=== PATIENT | female | born 1965 | race Caucasian/White ===

== ENCOUNTER 2016-05-02 07:07 | Emergency (ER) | payer OTHER ==
[~2016-05-02] VITALS: Ht 167.6 cm; Wt 63.5 kg
[~2016-05-02 07:07] MED LIST: ASPIRIN CHILDRE81 MG PO; BACTRIM 400 MG-1 TAB PO; CELLCEPT 250MG250 MG PO; CIPRO 500MG TA500 MG PO; CODEINE SULFATE PO; DULOXETINE30 MG PO; ECOTRIN81 MG PO; INSULIN PUMP; LOMOTIL 0.025 M1 TAB PO; Lomotil PO; MASON NATURAL2000 IU PO; METOCLOPRAMIDE10 MG PO; PHENERGAN25 M1 PO; PRAVASTATIN SOD40 MG PO; PREDNISONE5 MG PO; PRILOSEC OTC20 MG PO; TACROLIMUS1 MG PO; ZOFRAN4 M1 PO
--- NOTE | 2016-05-02 07:23 | ED GI/GU/ABDOMINAL COMPLAINT ---
See Addendum History of Present Illness General Chief Complaint: Nausea, Vomiting, Diarrhea Stated Complaint: NAUSEA,VOMITING,HX DIABETES Source: patient Exam Limitations: no limitations Allergies Coded Allergies: NO KNOWN ALLERGIES (03/03/14) Reconcile Medications Aspirin (Ecotrin) 81 MG ECT 1 TAB PO DAILY HEART HEALTH (Reported) CHOLECALCIFEROL (VITAMIN D3) (Vitamin D) 2,000 UNIT CAPSULE 1 CAP PO DAILY SUPPLEMENT (Reported) Codeine Sulfate 60 MG TABLET 2 TAB PO AT BEDTIME NEUROPATHY (Reported) DIPHENOXYLATE HCL/ATROPINE (Lomotil 2.5-0.025 MG Tablet) 1 TAB TAB 1 TAB PO TID PRN DIARRHEA (Reported) DULOXETINE HCL (Duloxetine) 30 MG CAPSULE.DR 2 CAP PO AT BEDTIME NEUROPATHY ( Reported) [INSULIN PUMP] (Reported) DR SANDOVAL TO MANAGE METOCLOPRAMIDE HCL (Metoclopramide HCl) 10 MG TABLET 1 TAB PO 4 TIMES/DAY GASTRA PERISIS (Reported) Mycophenolate Mofetil (CellCept) 250 MG CAPSULE 3 CAP PO BID KIDNEY TRANSPLANT (Reported) Pravastatin Sodium 40 MG TABLET 1 TAB PO DAILY CHOLESTEROL (Reported) Prednisone 5 MG TAB 1 TAB PO DAILY KIDNEY TRANSPLANT (Reported) Promethazine Hydrochloride (Phenergan) 25 MG TAB 1 TAB PO TID PRN NAUSEA Tacrolimus 1 MG CAPSULE 1.5 MG PO BID KIDNEY TRANSPLANT (Reported) Triage Note: C/O NAUSEA X 5 DAYS, VOMITING SINCE YESTERDAY. DENIES ABDOMINAL PAIN OR DIARRHEA. PMH: IDDM. REPORTS ACCUCHECK WAS 158 @ 0645. Triage Nurses Notes Reviewed? yes ? N Is pt currently ? No Onset: Abrupt Duration: day(s): (5) Timing: recent history Quality/Severity: moderate No Modifying Factors: none Associated Symptoms: nausea/vomiting HPI: 50 year old female presents with sudden onset nausea and vomiting since sunday. Patient reports persistent symptoms. She reports only being able to hold down soup. She is on reglan q4 hrs at baseline for gastroparesis. Positive chills and headache. No abdominal pain. Emesis is bilious but non bloody. She denies any recent sick contacts of travel. (GARDENIA VILLA,DAWIT) Vital Signs & Intake/Output Vital Signs & Intake/Output ED Intake and Output 05/03 0000 05/02 1200 Intake Total 2000 Output Total Balance 2000 Intake, IV 2000 Patient 140 lb Weight Past History Travel History Traveled to [place] past 21 day No Medical History Any Pertinent Medical History? see below for history Neurological: NEUROPATHY EENT: NONE Cardiovascular: NONE Respiratory: bronchitis, COPD, O2 PRN Gastrointestinal: GERD, GASTROPARESIS Hepatic: NONE Renal: KIDNEY TRANSPLANT Musculoskeletal: NONE Psychiatric: NONE Endocrine: diabetes Blood Disorders: NONE Cancer(s): NONE History of MRSA: No History of VRE: No History of CDIFF: No Surgical History Surgical History: renal transplant Psychosocial History Who do you live with Spouse Services at Home None What is your primary language Greek Tobacco Use: Current Not Daily ETOH Use: denies use Family History Family History, If Any: FATHER Relation not specified for: FH: HTN (hypertension) Hx Contributory? No (DAWIT VARNER MD) Review of Systems Review of Systems Constitutional: Reports: chills. Denies: fever. EENTM: Reports: no symptoms. Respiratory: Denies: cough, short of breath, sputum production. Cardiovascular: Denies: chest pain, palpitations. GI: Reports: nausea, vomiting. Denies: abdominal pain. Genitourinary: Reports: no symptoms. Musculoskeletal: Reports: no symptoms. Skin: Reports: no symptoms. Neurological/Psychological: Reports: no symptoms. Hematologic/Endocrine: Denies: bruising, bleeding, polyuria, polydipsia. Immunologic/Allergic: Reports: no symptoms. All Other Systems: Reviewed and Negative (DAWIT VARNER MD) Physical Exam Physical Exam General Appearance: alert, awake, anxious, mild distress, thin Head: atraumatic, normal appearance Eyes: Bilateral: normal appearance, PERRL, EOMI. Ears, Nose, Throat, Mouth: hearing grossly normal, moist mucous membrane Neck: normal inspection, supple, full range of motion Respiratory: normal breath sounds, chest non-tender, no respiratory distress Cardiovascular: regular rate/rhythm Peripheral Pulses: 2+ radial (R), 2+ radial (L) Gastrointestinal: normal bowel sounds, soft, non-tender Back: normal inspection, normal range of motion Extremities: normal range of motion Neurologic/Psych: no motor/sensory deficits, awake, alert, oriented x 3 Skin: intact, normal color, warm/dry Core Measures ACS in differential dx? No Severe Sepsis Present: No Septic Shock Present: No (DAWIT VARNER MD) Progress Differential Diagnosis: ischemic bowel, pancreatitis, PUD/GERD, perforated viscous, SBO, DKA, GASTROPARESIS, CORBIN, DEHYDRATION, ELECTROLYTE DISTURBANCE Initial ED EKG: none (DAWIT VARNER MD) Plan of Care: Orders Procedure Date/time Status MIXED VENOUS BLOOD GAS (GEN) 05/02 722 Complete URINALYSIS 05/02 722 Active COMPREHENSIVE METABOLIC PANEL 05/02 722 Complete CBC WITHOUT DIFFERENTIAL 05/02 722 Complete ACETONE 05/02 722 Complete Laboratory Tests 05/02/16 0830: Bicarbonate Actual 29 H, Mixed VBG pH 7.35, Mixed VBG pCO2 55 H, Mixed VBG O2 Saturation 22 L, P-50 (Temp Corrected) YES, Carboxyhemoglobin 2.3, O2 Concentration % RA, Temperature 97.2, O2 Delivery Method RA, Phlebotomy Draw Site RAC 05/02/16 0741: Anion Gap 6, Estimated GFR 58 L, BUN/Creatinine Ratio 14.0, Glucose 132 H, Calcium 9.9, Total Bilirubin 0.4, AST 21, ALT 22, Alkaline Phosphatase 61, Total Protein 7.1, Albumin 4.0, Globulin 3.1, Albumin/Globulin Ratio 1.3, CBC w Diff NO MAN DIFF REQ, RBC 4.57, MCV 69.3 L, MCH 21.0 L, RDW 20.4 H, MPV 8.7, Gran % 53.2, Lymphocytes % 33.6, Monocytes % 10.3 H, Eosinophils % 2.8, Basophils % 0.1, Absolute Granulocytes 4.1, Absolute Lymphocytes 2.6, Absolute Monocytes 0.8 H, Absolute Eosinophils 0.2, Absolute Basophils 0, PUBS MCHC 30.4 L, Acetone Level NEGATIVE labs, acetone, mixed venous ordered. NS, iv reglan ordered. 9:20 will attempt clear liquid diet. workup negative for DKA. 05/02/2016 9:47:10 AM Patient feeling much better at this time. She is tolerating clear liquids. We will discharge her home. Patient has Reglan that she takes before meals which she can continue for her gastroparesis. (DAWIT VARNER MD) Comments: THIS PATIENT WAS NOT SEEN BY SHERYL ONEILL (JENAE BUNDYON) Departure Departure Time of Disposition: 946 Disposition: HOME OR SELF CARE Condition: Stable Clinical Impression Primary Impression: Gastroparesis Secondary Impressions: Anemia Referrals: JANELLE VILLA,HECTOR Red (PCP/Family) Additional Instructions: Take your Reglan as prescribed and follow up with her doctors in the office. Return as needed. Departure Forms: Customer Survey General Discharge Information (GARDENIA VILLA,DAWIT)
[2016-05-02 07:57] LABS: ABSOLUTE BASOPHIL COUNT 0 /CUMM (0.0-0.2); ABSOLUTE EOSINOPHIL COUNT 0.2 /CUMM (0.0-0.7); ABSOLUTE GRANULOCYTE CT 4.1 /CUMM (1.4-6.5); ABSOLUTE LYMPH COUNT 2.6 /CUMM (1.2-3.4); ABSOLUTE MONOCYTE COUNT 0.8 /CUMM (0.10-0.60); BASOPHIL % 0.1 % (0.0-2.0); EOSINOPHIL % 2.8 % (0-5); HEMATOCRIT 31.7 % (37-47); MEAN CORPUSCULAR HGB CONC 30.4 G/DL (33.0-37.0); MEAN CORPUSCULAR VOLUME 69.3 FL (81.0-99.0); MEAN PLATELET VOLUME 8.7 FL (7.4-10.4); RBC DISTRIBUTION WIDTH 20.4 % (11.5-14.5); RED BLOOD CELL CT 4.57 /CUMM (4.20-5.40); WHITE BLOOD CELL COUNT 7.7 /CUMM (4.8-10.8)
[2016-05-02 08:11] LABS: GRANULOCYTE % 53.2 % (42.2-75.2); PLATELET COUNT 369 /CUMM (130-400)
[2016-05-02 08:48] VITALS: BP 170/99
== END 2016-05-02 10:26 ==
LOC: ERH 07:07
PROVIDERS: Emergency Medicine
DX: K31.84 Gastroparesis (principal); D64.9 Anemia, unspecified
CPT/HCPCS: 96361; 96374; 96375; 96376; J2765

== ENCOUNTER 2016-05-21 16:20 | Emergency (ER) | payer OTHER ==
[~2016-05-21] VITALS: Ht 170.2 cm; Wt 63.5 kg
[2016-05-21] MEDS ORDERED: VITAMIN D2000 UNIT PO (17:45)
[2016-05-21] MEDS ORDERED: ASPIRIN81 M4 PO (17:45)
[2016-05-21] MEDS ORDERED: CODEINE SULFATE PO (17:46)
[2016-05-21] MEDS ORDERED: NOVOLOG100 UNIT/1 (17:46)
[2016-05-21] MEDS ORDERED: DULOXETINE HCL60 MG PO (17:46)
[2016-05-21] MEDS ORDERED: PRAVACHOL40 M1 PO (17:47)
[2016-05-21] MEDS ORDERED: REGLAN10 M1 PO ×2 (17:47→19:44)
[2016-05-21] MEDS ORDERED: CELLCEPT250 MG PO (17:47)
[2016-05-21] MEDS ORDERED: PROGRAF1 M1 PO (17:48)
[2016-05-21] MEDS ORDERED: PREDNISONE5 M1 PO (17:48)
--- NOTE | 2016-05-21 17:57 | ED GI/GU/ABDOMINAL COMPLAINT ---
History of Present Illness General Chief Complaint: Nausea, Vomiting, Diarrhea Stated Complaint: NAUSEA, VOMITING X 3 DAYS Source: patient, old records Exam Limitations: no limitations Vital Signs & Intake/Output Vital Signs & Intake/Output Vital Signs Date Time Temp Pulse Resp B/P Pulse O2 O2 Flow FiO2 Ox Delivery Rate 05/21 1854 97.3 99 18 197/94 98 Room Air 05/21 1647 97.9 102 20 228/116 92 Room Air Allergies Coded Allergies: No Known Allergies (05/21/16) Reconcile Medications Aspirin (Aspirin*) 81 MG TAB.CHEW 1 TAB PO DAILY PROPHYLAXIS (Reported) Cholecalciferol (Vitamin D3) (Vitamin D) 2,000 UNIT CAPSULE 1 CAP PO DAILY SUPPLEMENT (Reported) Codeine Sulfate 60 MG TABLET 60 MG PO QHS NEUROPATHY (Reported) Dicyclomine Hydrochloride (Bentyl) 10 MG CAPSULE 1 CAP PO TID PRN GASTRITIS Duloxetine HCl 60 MG CAPSULE.DR 1 CAP PO DAILY NEUROPATHY (Reported) Insulin Aspart (Novolog) (Unknown Strength) CARTRIDGE (Unknown Dose) DAILY INSULIN PUMP (Reported) [INSULIN PUMP] (Reported) DR SANDOVAL TO MANAGE Metoclopramide HCl (Reglan) 10 MG TABLET 1 TAB PO 4 TIMES/DAY GASTROPARESIS ( Reported) 30 minutes before meals and bedtime Metoclopramide HCl (Reglan) 10 MG TABLET 1 TAB PO 4 TIMES/DAY PRN NAUSEA 30 minutes before meals and bedtime Mycophenolate Mofetil (Cellcept) 250 MG CAPSULE 3 CAP PO BID KIDNEY TRANSPLANT (Reported) Ondansetron HCl (Zofran) 4 MG TABLET 1 TAB PO Q6-8P PRN NAUSEA Pravastatin Sodium (Pravachol) 40 MG TABLET 1 TAB PO DAILY HPL (Reported) Prednisone 5 MG TABLET 1 TAB PO DAILY RENAL TRANSPLANT (Reported) Tacrolimus (Prograf) 1 MG CAPSULE 1.5 MG PO BID TRANSPLANT (Reported) Triage Note: TRIAGE: PT TO ER WITH C/C N/V X 3 DAYS. UNABLE TO TOLERATE PO LIQUIDS/SOLIDS. STATES HX OF SAME AND WAS SEEN HERE 3 WEEKS AGO FOR IVF. DENIES ANY PAIN. ACTIVELY VOMITING AT TRIAGE. AUTO B/P 228/116 AND MANUAL 192/90 WHILE SEATED. PT REQUESTED B/P BE DONE ALSO WHILE STANDING STATING "I HAVE ORTHOSTATIC HYPOTENSION AND MY B/P IS NORMALLY LOW BUT WHEN I COME HERE IT'S HIGH. THE LAST TIME THEY DIDN'T WANT TO GIVE ME FLUIDS BECAUSE OF HIGH BLOOD PRESSURE SO I WANT THEM TO SEE ITS LOWER WHEN I STAND." B/P 152/80 WHILE STANDING. PT ALSO WITH HX OF DIABETES, HAS INSULIN PUMP. 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 Triage Nurses Notes Reviewed? yes ? N Is pt currently ? No Onset: Abrupt Duration: constant Timing: recent history Quality/Severity: severe Severity Numbers: 10 Radiation: no radiation Activities at Onset: none HPI: Patient is a 50-year-old female with a past medical history of type 1 diabetes, and gastroparesis where patient has had a 3 day history of persistent nausea and vomiting. Patient is intolerable of by mouth in the last 3 days. Last bowel movement was today no blood no melena noted. Patient states that 3 weeks ago she had a similar event where she was evaluated here [facility] and which Reglan does help her. Patient does have established with Dr. Saini endoscopies and colonoscopies have been unremarkable. Denies any fevers but does have chills. Antibiotics were administered 10 days ago for concerns of bronchitis. Denies any chest pain abdominal pain dysuria hematuria vaginal bleeding or vaginal discharge. (SALINA SOSA) Past History Travel History Traveled to [place] past 21 day No Medical History Any Pertinent Medical History? see below for history Neurological: NEUROPATHY EENT: diabetic retinopathy Cardiovascular: ORTHOSTATIC HYPOTENSION Respiratory: bronchitis, COPD, O2 @2L PRN Gastrointestinal: GERD, GASTROPARESIS Hepatic: NONE Renal: KIDNEY TRANSPLANT ACUTE KIDNEY FAILURE Musculoskeletal: OSTEOMYELITIS Psychiatric: NONE Endocrine: diabetes, INSULIN PUMP Blood Disorders: NONE Cancer(s): NONE FIXTURE RELAMPER/Reproductive: NONE History of MRSA: No History of VRE: No History of CDIFF: No Surgical History Surgical History: renal transplant Psychosocial History Who do you live with Spouse Services at Home None What is your primary language Bengali Tobacco Use: Never used ETOH Use: denies use Illicit Drug Use: denies illicit drug use Family History Family History, If Any: FATHER Relation not specified for: FH: HTN (hypertension) Hx Contributory? No (SALINA SOSA) Review of Systems Review of Systems Constitutional: Reports: no symptoms. EENTM: Reports: no symptoms. Respiratory: Reports: no symptoms. Cardiovascular: Reports: no symptoms. GI: Reports: see HPI, nausea, vomiting. Denies: abdominal pain. Genitourinary: Reports: no symptoms. Musculoskeletal: Reports: no symptoms. Skin: Reports: no symptoms. Neurological/Psychological: Reports: no symptoms. Hematologic/Endocrine: Reports: no symptoms. Immunologic/Allergic: Reports: no symptoms. All Other Systems: Reviewed and Negative (SALINA SOSA) Physical Exam Physical Exam General Appearance: no apparent distress, alert, comfortable Gastrointestinal: normal bowel sounds, soft, non-tender Comments: HEENT: Normal EENT exam. Neck: Supple, no lymphadenopathy, normal range of motion without pain or tenderness Back: Nontender, no CVA tenderness. Full range of motion Cardiovascular: Regular rate and rhythms no murmurs rubs or gallops, normal JVP Respiratory: Chest nontender. No respiratory distress.breath sounds clear to auscultation bilaterally Abdomen: Soft, nontender nondistended, no appreciable organomegaly. Normal bowel sounds. No ascites Extremity: No edema, no calf tenderness to palpation, normal and equal pulses. Neuro: Alert oriented x3, motor sensory normal, Skin: No appreciable rash on exposed skin, skin is warm and dry. Psych: Mood and affect is normal, memory and judgment is normal. Core Measures ACS in differential dx? No Severe Sepsis Present: No Septic Shock Present: No (SALINA SOSA) Progress Differential Diagnosis: appendicitis, biliary colic, bowel obstruction, cholecystitis, diverticulitis, ectopic , endometritis, esophageal varices, gastritis, hepatitis, hernia, hemorrhoids, ischemic bowel, inflamm bowel dis, intrauterine , kidney stone, Alejandra-Tim tear, ovarian cyst , ovarian torsion, pancreatitis, PID/cervicitis, peptic ulcer, PUD/GERD, perforated viscous, SBO, threatened AB, UTI/pyelo Plan of Care: Orders Procedure Date/time Status LACTIC ACID 05/21 2057 Active MIXED VENOUS BLOOD GAS (GEN) 05/21 1757 Active LACTIC ACID 05/21 1757 Complete COMPREHENSIVE METABOLIC PANEL 05/21 1757 Complete CBC WITHOUT DIFFERENTIAL 05/21 1757 Complete ACETONE 05/21 1757 Complete Laboratory Tests 05/21/16 1835: Bicarbonate Actual 29 H, Mixed VBG pH 7.38, Mixed VBG pCO2 50, Mixed VBG O2 Saturation 33 L, Carboxyhemoglobin 3.0, O2 Concentration % R/A, Anion Gap 8, Estimated GFR > 60, BUN/Creatinine Ratio 18.9, Glucose 166 H, Lactic Acid 0.9, Calcium 9.7, Total Bilirubin 0.5, AST 21, ALT 30, Alkaline Phosphatase 73, Total Protein 7.6, Albumin 4.2, Globulin 3.4, Albumin/Globulin Ratio 1.2, CBC w Diff NO MAN DIFF REQ, RBC 4.76, MCV 69.4 L, MCH 20.5 L, RDW 20.3 H, MPV 8.4, Gran % 79.3 H, Lymphocytes % 12.4 L, Monocytes % 7.3, Eosinophils % 0.8, Basophils % 0.2, Absolute Granulocytes 9.8 H, Absolute Lymphocytes 1.5, Absolute Monocytes 0.9 H, Absolute Eosinophils 0.1, Absolute Basophils 0, PUBS MCHC 29.6 L, Phlebotomy Draw Site VENOUS, Acetone Level NEGATIVE DDX- ischemic bowel, pancreatitis, PUD/GERD, perforated viscous, SBO, DKA, GASTROPARESIS, CORBIN, DEHYDRATION, ELECTROLYTE DISTURBANCE Patient currently is in no apparent distress. Patient has nontender abdomen blood pressure was elevated. Patient had unremarkable blood work. Patient states that she felt better and improved after Reglan was administered and IV fluids were administered. Patient was able tolerate by mouth on discharge. Patient was strongly advised to follow -up with gastroenterology. (SALINA SOSA) Initial ED EKG: none (SALINA SOSA) Departure Departure Disposition: HOME OR SELF CARE Condition: Stable Clinical Impression Primary Impression: Nausea & vomiting Secondary Impressions: Gastritis, Hypertension Referrals: JANELLE VILLA,HECTOR Red (PCP/Family) Additional Instructions: As discussed begin a 24-hour regimen of clear liquids and bland diet to rest YOUR bowel. Begin the prescription of Reglan for nausea and Zofran for breakthrough nausea relief. Begin the prescription Bentyl for your symptoms. Tomorrow please follow up with your established inspector of weights and measures Dr. Saini. prescription is awaiting a [facility] pharmacy. If symptoms worsen return to emergency room. Departure Forms: Customer Survey General Discharge Information Prescriptions: Current Visit Scripts Ondansetron HCl (Zofran) 1 TAB PO Q6-8P PRN NAUSEA #15 TAB Metoclopramide HCl (Reglan) 1 TAB PO 4 TIMES/DAY PRN NAUSEA #15 TAB 30 minutes before meals and bedtime Dicyclomine Hydrochloride (Bentyl) 1 CAP PO TID PRN GASTRITIS #9 CAP (SALINA SOSA) PA/MANAGER CONFIGURATION Co-Sign Statement Statement: ED Attending supervision documentation- [] I saw and evaluated the patient. I have also reviewed all the pertinent lab results and diagnostic results. I agree with the findings and the plan of care as documented in the PA's/MANAGER CONFIGURATION's documentation. [X] I have reviewed the ED Record and agree with the PA's/MANAGER CONFIGURATION's documentation. [] Additions or exceptions (if any) to the PAs/MANAGER CONFIGURATION's note and plan are summarized below: [] (ROSALIA LADD DO)
[2016-05-21 18:46] LABS: ABSOLUTE BASOPHIL COUNT 0 /CUMM (0.0-0.2); ABSOLUTE EOSINOPHIL COUNT 0.1 /CUMM (0.0-0.7); ABSOLUTE GRANULOCYTE CT 9.8 /CUMM (1.4-6.5); ABSOLUTE LYMPH COUNT 1.5 /CUMM (1.2-3.4); ABSOLUTE MONOCYTE COUNT 0.9 /CUMM (0.10-0.60); BASOPHIL % 0.2 % (0.0-2.0); EOSINOPHIL % 0.8 % (0-5); GRANULOCYTE % 79.3 % (42.2-75.2); MEAN CORPUSCULAR HGB 20.5 PG (27.0-31.0); MEAN CORPUSCULAR HGB CONC 29.6 G/DL (33.0-37.0); MEAN CORPUSCULAR VOLUME 69.4 FL (81.0-99.0); MEAN PLATELET VOLUME 8.4 FL (7.4-10.4); PLATELET COUNT 386 /CUMM (130-400); RBC DISTRIBUTION WIDTH 20.3 % (11.5-14.5); RED BLOOD CELL CT 4.76 /CUMM (4.20-5.40); WHITE BLOOD CELL COUNT 12.4 /CUMM (4.8-10.8)
[2016-05-21 18:54] VITALS: BP 197/94
[2016-05-21] MEDS ORDERED: ZOFRAN4 M2 PO (19:44)
[2016-05-21] MEDS ORDERED: BENTYL10 M1 PO (19:44)
== END 2016-05-21 19:47 ==
LOC: ERH 16:20
PROVIDERS: Physician Assistant
DX: K29.70 Gastritis, unspecified, without bleeding (principal); I10 Essential (primary) hypertension
CPT/HCPCS: 96361; 96374; J2765

== ENCOUNTER 2016-06-24 00:15 | Emergency (ER) | payer OTHER ==
[~2016-06-24] VITALS: Ht 165.1 cm; Wt 63.5 kg
[~2016-06-24 00:15] MED LIST changes: +ASPIRIN81 M4 PO; +BENTYL10 M1 PO; +CELLCEPT250 MG PO; +DULOXETINE HCL60 MG PO; +NOVOLOG100 UNIT/1; +PRAVACHOL40 M1 PO; +PREDNISONE5 M1 PO; +PROGRAF1 M1 PO; +REGLAN10 M1 PO; +VITAMIN D2000 UNIT PO; +ZOFRAN4 M2 PO
--- NOTE | 2016-06-24 00:28 | ED GI/GU/ABDOMINAL COMPLAINT ---
History of Present Illness General Chief Complaint: Nausea, Vomiting, Diarrhea Stated Complaint: "PER VOMITING X24HRS" Source: patient Exam Limitations: no limitations Vital Signs & Intake/Output Vital Signs & Intake/Output Vital Signs Date Time Temp Pulse Resp B/P B/P Pulse O2 O2 Flow FiO2 Mean Ox Delivery Rate 06/24 0212 182/84 06/24 0034 98 Room Air 06/24 0024 96.8 103 18 206/101 95 Room Air Allergies Coded Allergies: No Known Allergies (05/21/16) Reconcile Medications Aspirin (Aspirin*) 81 MG TAB.CHEW 1 TAB PO DAILY PROPHYLAXIS (Reported) Cholecalciferol (Vitamin D3) (Vitamin D) 2,000 UNIT CAPSULE 1 CAP PO DAILY SUPPLEMENT (Reported) Codeine Sulfate 60 MG TABLET 60 MG PO QHS NEUROPATHY (Reported) Dicyclomine Hydrochloride (Bentyl) 10 MG CAPSULE 1 CAP PO TID PRN GASTRITIS Duloxetine HCl 60 MG CAPSULE.DR 1 CAP PO DAILY NEUROPATHY (Reported) Insulin Aspart (Novolog) (Unknown Strength) CARTRIDGE (Unknown Dose) DAILY INSULIN PUMP (Reported) [INSULIN PUMP] (Reported) DR SANDOVAL TO MANAGE Metoclopramide HCl (Reglan) 10 MG TABLET 1 TAB PO 4 TIMES/DAY GASTROPARESIS ( Reported) 30 minutes before meals and bedtime Metoclopramide HCl (Reglan) 10 MG TABLET 1 TAB PO 4 TIMES/DAY PRN NAUSEA 30 minutes before meals and bedtime Mycophenolate Mofetil (Cellcept) 250 MG CAPSULE 3 CAP PO BID KIDNEY TRANSPLANT (Reported) Ondansetron (Zofran Odt) 4 MG TAB.RAPDIS 1 TAB SL TID PRN nausea Ondansetron HCl (Zofran) 4 MG TABLET 1 TAB PO Q6-8P PRN NAUSEA Pravastatin Sodium (Pravachol) 40 MG TABLET 1 TAB PO DAILY HPL (Reported) Prednisone 5 MG TABLET 1 TAB PO DAILY RENAL TRANSPLANT (Reported) Promethazine HCl 25 MG SUPP.RECT 1 SUPP DC 4 TIMES/DAY PRN NAUSEA Tacrolimus (Prograf) 1 MG CAPSULE 1.5 MG PO BID TRANSPLANT (Reported) Triage Nurses Notes Reviewed? yes ? n Is pt currently ? No Onset: Gradual Duration: day(s):, waxing and waning Timing: recent history Quality/Severity: cramping Location: generalized abdomen Radiation: no radiation Activities at Onset: none Prior Abdominal Problems: similar symptoms Modifying Factors: Worsens With: vomiting. Associated Symptoms: abdominal pain, nausea/vomiting HPI: 50-year-old woman history of diabetes status post kidney transplant many years ago, also with gastroparesis with monthly episodes. She states that she has been vomiting continuously for the past 24 hours. She presents with recurrent episode of nausea and vomiting without abdominal pain diarrhea fever chills. She states that this is typical of her prior presentations. IV fluids Zofran and Reglan usually work. Also IV benzodiazepines also work. She is otherwise well has no other concerns. Past History Travel History Traveled to [place] past 21 day No Medical History Any Pertinent Medical History? see below for history Neurological: NEUROPATHY EENT: diabetic retinopathy Cardiovascular: ORTHOSTATIC HYPOTENSION Respiratory: bronchitis, COPD, O2 @2L PRN Gastrointestinal: GERD, GASTROPARESIS Hepatic: NONE Renal: KIDNEY TRANSPLANT ACUTE KIDNEY FAILURE Musculoskeletal: OSTEOMYELITIS Psychiatric: NONE Endocrine: diabetes, INSULIN PUMP Blood Disorders: NONE Cancer(s): NONE SHOW HOST OR HOSTESS/Reproductive: NONE History of MRSA: No History of VRE: No History of CDIFF: No Surgical History Surgical History: renal transplant Psychosocial History Who do you live with Spouse Services at Home None What is your primary language Bahamian Family History Family History, If Any: FATHER Relation not specified for: FH: HTN (hypertension) Hx Contributory? No Review of Systems Review of Systems Constitutional: Reports: no symptoms. EENTM: Reports: no symptoms. Respiratory: Reports: no symptoms. Cardiovascular: Reports: no symptoms. GI: Reports: no symptoms. Genitourinary: Reports: no symptoms. Musculoskeletal: Reports: no symptoms. Skin: Reports: no symptoms. Neurological/Psychological: Reports: no symptoms. Hematologic/Endocrine: Reports: no symptoms. Immunologic/Allergic: Reports: no symptoms. All Other Systems: Reviewed and Negative Physical Exam Physical Exam General Appearance: well developed/nourished, moderate distress Head: atraumatic Eyes: Bilateral: normal appearance. Ears, Nose, Throat, Mouth: hearing grossly normal Neck: normal inspection, supple, full range of motion, normal alignment Respiratory: normal breath sounds, chest non-tender, no respiratory distress, quiet respiration, lungs clear Cardiovascular: regular rate/rhythm Gastrointestinal: normal bowel sounds, soft, non-tender Back: normal inspection, normal range of motion Extremities: normal range of motion Neurologic/Psych: no motor/sensory deficits, awake, alert, oriented x 3 Skin: intact, normal color, warm/dry Core Measures ACS in differential dx? No Severe Sepsis Present: No Septic Shock Present: No Progress Differential Diagnosis: gastroparesis versus gastroenteritis versus other Plan of Care: Orders Procedure Date/time Status TROPONIN LEVEL 06/24 17 Complete LIPASE 06/24 17 Complete COMPREHENSIVE METABOLIC PANEL 06/24 17 Complete CBC WITHOUT DIFFERENTIAL 06/24 17 Complete AMYLASE 06/24 17 Complete EKG 06/24 17 Active Current Medications Sig/Marvin Start time Last Medication Dose Stop Time Status Admin Sodium Chloride 1,000 ML BOLUS ONE 06/24 129 AC 06/24 (Normal Saline 0.9%) 06/24 228 0120 Laboratory Tests 06/24/16 0035: Anion Gap 14, Estimated GFR > 60, BUN/Creatinine Ratio 20.0, Glucose 122 H, Calcium 9.6, Total Bilirubin 0.5, AST 24, ALT 27, Alkaline Phosphatase 90, Troponin I < 0.01, Total Protein 7.7, Albumin 4.3, Globulin 3.4, Albumin/ Globulin Ratio 1.3, Amylase 68, Lipase 30, CBC w Diff NO MAN DIFF REQ, RBC 5.05, MCV 69.4 L, MCH 21.0 L, RDW 23.4 H, MPV 8.4, Gran % 80.9 H, Lymphocytes % 12.9 L, Monocytes % 5.4, Eosinophils % 0.4, Basophils % 0.4, Absolute Granulocytes 8.5 H, Absolute Lymphocytes 1.4, Absolute Monocytes 0.6, Absolute Eosinophils 0, Absolute Basophils 0, PUBS MCHC 30.2 L Initial ED EKG: patient declines Departure Departure Disposition: HOME OR SELF CARE Condition: Stable Clinical Impression Primary Impression: Gastroparesis Secondary Impressions: Nausea and vomiting Referrals: JANELLE VILLA,HECTOR Red (PCP/Family) Departure Forms: Customer Survey General Discharge Information Prescriptions: Current Visit Scripts Ondansetron (Zofran Odt) 1 TAB SL TID PRN nausea #30 TAB Ref 2 Promethazine HCl 1 SUPP DC 4 TIMES/DAY PRN NAUSEA #30 SUPP Ref 1 Comments 06/24/16, 2:14AM... Pt feeling better. no active vomiting after supportive medications. pt wishes to go home. close follow up advised.
[2016-06-24 00:45] LABS: ABSOLUTE BASOPHIL COUNT 0 /CUMM (0.0-0.2); ABSOLUTE EOSINOPHIL COUNT 0 /CUMM (0.0-0.7); ABSOLUTE GRANULOCYTE CT 8.5 /CUMM (1.4-6.5); ABSOLUTE LYMPH COUNT 1.4 /CUMM (1.2-3.4); ABSOLUTE MONOCYTE COUNT 0.6 /CUMM (0.10-0.60); BASOPHIL % 0.4 % (0.0-2.0); EOSINOPHIL % 0.4 % (0-5); GRANULOCYTE % 80.9 % (42.2-75.2); HEMATOCRIT 35.1 % (37-47); MEAN CORPUSCULAR HGB CONC 30.2 G/DL (33.0-37.0); MEAN CORPUSCULAR VOLUME 69.4 FL (81.0-99.0); MEAN PLATELET VOLUME 8.4 FL (7.4-10.4); PLATELET COUNT 386 /CUMM (130-400); RBC DISTRIBUTION WIDTH 23.4 % (11.5-14.5); WHITE BLOOD CELL COUNT 10.5 /CUMM (4.8-10.8)
[2016-06-24 00:54] LABS: RED BLOOD CELL CT 5.05 /CUMM (4.20-5.40)
[2016-06-24 02:12] VITALS: BP 182/84
[2016-06-24] MEDS ORDERED: PROMETHAZINE HC25 M2 PR (02:13)
[2016-06-24] MEDS ORDERED: ZOFRAN ODT4 M1 SL (02:13)
== END 2016-06-24 02:23 ==
LOC: ERH 00:15
PROVIDERS: Pediatrics
DX: E10.43 Type 1 diabetes mellitus with diabetic autonomic (poly)neuropathy (principal)
CPT/HCPCS: 96361; 96365; 96375; J2060; J2405; J2550; J2765

== ENCOUNTER 2017-09-16 17:43 | Inpatient (IN) | payer OTHER ==
[~2017-09-16] VITALS: Ht 167.6 cm; Wt 61.7 kg
[~2017-09-16 17:43] MED LIST changes: +AGGRENOX 25 MG1 EACH PO; +CIPRO500 M1 PO; +DEPAKOTE ER500 M1 PO; +DOXYCYCLINE HY100 M4 PO; +FAMOTIDINE20 M1 PO; +HYDRALAZINE HCL10 M1 PO; +LASIX20 M1 PO; +LASIX40 M1 PO; +LEVEMIR100 UNIT/1 SC; +LOMOTIL 2.5-0.1 EACH PO; +METOPROLOL TART25 M1 PO; +MYCOPHENOLATE PO; +NEURONTIN300 M1 PO; +NOVOLOG100 UNIT/2; +PROMETHAZINE HC25 M2 PR; +XANAX0.25 M1 PO; +ZOFRAN ODT4 M1 SL
--- NOTE | 2017-09-16 18:20 | ED GENERAL ADULT ---
History of Present Illness General Chief Complaint: General Adult Stated Complaint: BIBA, GEN WEAKNESS, HYPOTENSIVE Source: patient, family, old records Exam Limitations: no limitations Vital Signs & Intake/Output Vital Signs & Intake/Output Vital Signs Date Time Temp Pulse Resp B/P B/P Pulse O2 O2 Flow FiO2 Mean Ox Delivery Rate 09/17 0111 98.9 84 29 160/90 96 Nasal 4.0L Cannula 09/17 0044 Nasal 4.0L Cannula 09/17 0001 99.2 85 20 181/82 97 Nasal 4.0L Cannula 09/16 2146 99.2 83 17 168/96 96 Nasal 2.0L Cannula 09/16 2116 83 09/16 2116 197/94 09/16 2104 93 204/96 09/16 2001 99.2 95 10 208/92 99 Nasal 4.0L Cannula 09/16 1925 Nasal Cannula 09/16 1758 98.6 88 18 184/92 95 Room Air ED Intake and Output 09/17 0000 09/16 1200 Intake Total 1000 Output Total Balance 1000 Intake, IV 1000 Patient 120 lb Weight Weight Reported by Patient Measurement Method Allergies Coded Allergies: erythromycin base (From ERYTHROCIN) (NAUSEA 09/13/17) Triage Note: SEE PREVIOUSLY WRITTEN NOTE Triage Nurses Notes Reviewed? yes Onset: Gradual Duration: day(s): Timing: recent history Injury Environment: home Severity: moderate HPI: 51-year-old female with history of diabetes with insulin pump, recent diagnosis of seizures, possible CVA/TIA, COPD ON 3L home O2 at night, s/p kidney transplant presents to ED complaining of generalized weakness, poor appetite, nausea. Family state that the patient is "loopy" at times. Patient was seen on 09/14 4 nausea, weakness, diarrhea for which she took "a lot of immodium". The patient was discharged home however she states she is still not feeling better. Patient reports her diarrhea has resolved, bowel movement was this morning and normal. Patient reports that her persistent nausea per prevents her from eating a normal appetite. Today she ate some fruit and minimal fluids. Patient reports dyspnea and cough at baseline relating to her COPD however no worsening. She also reports central low back pain for the past few days without any known injury. Patient denies abdominal pain, chest pain, fevers. (Radha SAUCEDO,Oly Crisostomo) Reconcile Medications Alprazolam (Xanax) 0.25 MG TABLET 1 TAB PO BIDP PRN ANXIETTY (Reported) Codeine Sulfate 60 MG TABLET 60 MG PO TID PRN PAIN (Reported) Diphenoxylate HCl/Atropine (Lomotil 2.5-0.025 MG Tablet) 2.5 MG-0.025 MG TABLET 1-2 TAB PO BID PRN DIARRHEA (Reported) Dipyridamole W/ Aspirin (Aggrenox 25 MG-200 MG Capsule) 25 MG-200 MG CPMP.12HR 1 CAP PO BID ANTIPLATELET (Reported) Famotidine 20 MG TABLET 1 TAB PO BID GI (Reported) Furosemide (Lasix) 40 MG TABLET 1 TAB PO DAILY DIURETIC (Reported) Gabapentin (Neurontin) 300 MG CAPSULE 1 CAP PO TID NEUROPATHY (Reported) Lacosamide (Vimpat) 50 MG TABLET 1 TAB PO BID SEIZURES (Reported) Metoclopramide HCl (Reglan) 10 MG TABLET 1 TAB PO 4XDAILY NAUSEA (Reported) 30 minutes before meals and bedtime Mycophenolate Mofetil 250 MG CAPSULE 3 CAP PO BID KIDNEY TRANSPLANT (Reported ) Ondansetron (Zofran Odt) 4 MG TAB.RAPDIS 1 TAB SL TID PRN NAUSEA Pravastatin Sodium (Pravachol) 40 MG TABLET 1 TAB PO QHS HPL (Reported) Prednisone 5 MG TABLET 1 TAB PO DAILY RENAL TRANSPLANT (Reported) Tacrolimus (Prograf) 1 MG CAPSULE 1.5 MG PO BID TRANSPLANT (Reported) (Vahid VILLA,Ramy Olivarez) Past History Travel History Traveled to [place] past 21 day No Medical History Any Pertinent Medical History? see below for history Neurological: NEUROPATHY EENT: diabetic retinopathy Cardiovascular: ORTHOSTATIC HYPOTENSION Respiratory: bronchitis, COPD, O2 @2L PRN Gastrointestinal: GERD, GASTROPARESIS Hepatic: NONE Renal: KIDNEY TRANSPLANT ACUTE KIDNEY FAILURE Musculoskeletal: OSTEOMYELITIS Psychiatric: NONE Endocrine: diabetes, INSULIN PUMP Blood Disorders: NONE Cancer(s): NONE MEDICARE SPECIALIST/Reproductive: NONE History of MRSA: No History of VRE: No History of CDIFF: No Surgical History Surgical History: renal transplant Psychosocial History Who do you live with Spouse Services at Home None What is your primary language Cameroonian Tobacco Use: Never used ETOH Use: denies use Illicit Drug Use: denies illicit drug use Family History Family History, If Any: FATHER Relation not specified for: FH: HTN (hypertension) Hx Contributory? No (Oly Perez) Review of Systems Review of Systems Constitutional: Reports: see HPI. EENTM: Reports: no symptoms. Respiratory: Reports: see HPI. Cardiovascular: Reports: no symptoms. GI: Reports: see HPI. Genitourinary: Reports: no symptoms. Musculoskeletal: Reports: see HPI. Skin: Reports: no symptoms. Neurological/Psychological: Reports: see HPI. Hematologic/Endocrine: Reports: no symptoms. Immunologic/Allergic: Reports: no symptoms. All Other Systems: Reviewed and Negative (Radha SAUCEDO,Oly Crisostomo) Physical Exam Physical Exam General Appearance: well developed/nourished, no apparent distress, alert, awake Head: atraumatic, normal appearance Eyes: Left: normal appearance. Right: other (glass eye). Ears, Nose, Throat: normal pharynx, hearing grossly normal, moist mucus membranes Neck: normal inspection, supple, full range of motion Respiratory: no respiratory distress, rhonchi bilaterally Cardiovascular: regular rate/rhythm Peripheral Pulses: 2+ radial (R), 2+ radial (L) Gastrointestinal: normal bowel sounds, soft, non-tender, no organomegaly Back: normal inspection, normal range of motion, no vertebral tenderness, no CVA tenderness Extremities: normal inspection Neurologic/Psych: awake, alert, oriented x 3, transportation security officer II-XII nml as tested Skin: intact, normal color, warm/dry Core Measures ACS in differential dx? No CVA/TIA Diagnosis: No Sepsis Present: No Sepsis Focused Exam Completed? No (Oly Perez) Progress Differential Diagnoses I considered the following diagnoses in my evaluation of the patient: [Sepsis, pneumonia, COPD exacerbation, UTI, gastroenteritis, dehydration, electrolyte abnormality, hypertensive urgency] Plan of Care: Orders Procedure Date/time Status Regular Diet 09/17 B Active ECHOCARDIOGRAM 09/17 08 Active TROPONIN LEVEL 09/17 599 Active MAGNESIUM 09/17 599 Active CBC WITHOUT DIFFERENTIAL 09/17 599 Active BASIC ELECTROLYTES PLUS BUN&CR 09/17 599 Active EKG 09/17 599 Active Weight 09/17 42 Active Vital Signs 09/17 42 Complete Teach/Educate 09/17 42 Active Pain Treatment and Response 09/17 42 Active Nutritional Intake, Monitor 09/17 42 Active Isolation 09/17 42 Active Intake & Output 09/17 42 Complete Patient Care Conference 07/23 0043 Active Activity/Ambulation 09/17 0043 Complete TROPONIN LEVEL 09/17 0000 Active EKG 09/17 0000 Active Pathway - chart 09/16 221 Active House Staff 09/16 221 Active C.DIFFICILE 09/16 2213 Active Code Status 09/16 2213 Active STREP PNEUMO URINARY ANTIGEN 09/16 2113 Complete LEGIONELLA URINARY ANTIGEN 09/16 2113 Complete ED Holding Orders 09/16 2053 Active Admit to inpatient 09/16 2053 Active Vital Signs 09/16 2053 Active Code Status 09/16 2053 Complete Patient Data 09/16 2029 Active LACTIC ACID 09/16 2022 Complete BLOOD CULTURE 09/16 2021 Active Add-on Test (ER Only) 09/16 2010 Active Intake & Output 09/16 192 Active URINE DRUG SCREEN FOR ER ONLY 09/16 182 Complete MAGNESIUM 09/16 1820 Complete ETHANOL 09/16 182 Complete URINALYSIS 09/16 181 Complete TROPONIN LEVEL 09/16 181 Complete LIPASE 09/16 181 Complete COMPREHENSIVE METABOLIC PANEL 09/16 181 Complete CBC WITHOUT DIFFERENTIAL 09/16 1816 Complete EKG 09/16 181 Active Lab Add-on Test 09/16 UNK Active VTE Mechanical Prophylaxis 09/16 UNK Active FingerStick- Glucose 09/16 UNK Active Activity/Ambulation 09/16 UNK Active Current Medications Sig/Marvin Start time Last Medication Dose Stop Time Status Admin Pravastatin Sodium 40 MG 1700 09/17 1700 AC (Pravachol) Ceftazidime 1,000 MG Q12 09/17 09 AC (Fortaz) Doxycycline Hyclate 100 MG BID 09/17 09 AC (Vibramycin) Furosemide 40 MG DAILY 09/17 09 AC (Lasix) Prednisone 5 MG DAILY 09/17 0900 AC Insulin Aspart 0 TIDAC 09/17 08 AC (NovoLOG) Metoclopramide HCl 10 MG TIDAC 09/17 08 AC (Reglan) Heparin Sodium 5,000 UNIT Q8 09/17 06 AC (Porcine) Dipyridamole/Aspirin 1 CAP BID 09/16 2300 AC 09/16 (Aggrenox) 2330 Acetaminophen 650 MG Q6P PRN 09/16 221 AC (Tylenol) Ondansetron HCl 4 MG Q6P PRN 09/16 2214 AC (Zofran) Alprazolam 0.25 MG BID PRN 09/16 2144 AC 09/17 (Xanax) 09/24 2143 0005 Codeine 120 MG Q8 PRN 09/16 2144 (Codeine 15MG Tablet) Tacrolimus 1.5 MG BID 09/16 2144 AC 09/16 (Prograf 0.5MG) 2232 Famotidine 20 MG BID 09/16 2138 AC 09/16 (Pepcid) 2232 Gabapentin 300 MG TID 09/16 2138 09/16 (Neurontin) 2232 Lacosamide 50 MG BID 09/16 2138 AC 09/16 (Vimpat) 2329 Mycophenolate Mofetil 750 MG BID 09/16 2137 09/16 (CellCept) 2232 Laboratory Tests 09/17/17 0100: Troponin I Pending 09/16/172322: Lactic Acid Cancelled 09/16/172113: Urine Opiates Screen > 4000.00 H, Methadone Screen < 40, Barbiturate Screen < 60, Ur Phencyclidine Scrn < 6.00, Amphetamines Screen < 100, U Benzodiazepines Scrn < 85, Urine Cocaine Screen < 50, Urine Cannabis Screen < 5.00, Urine Color YEL, Urine Clarity CLEAR, Urine pH 6.5, Ur Specific Ethel 1.025, Urine Protein TRACE H, Urine Ketones NEG, Urine Nitrite NEG, Urine Bilirubin NEG, Urine Urobilinogen 0.2, Ur Leukocyte Esterase NEG, Ur Microscopic SEDIMENT EXAMINED, Urine RBC RARE, Urine WBC RARE, Ur Epithelial Cells RARE, Urine Bacteria RARE H , Urine Mucus RARE, Urine Hemoglobin NEG, Urine Glucose NEG 09/16/172055: Lactic Acid 0.9 09/16/171849: Magnesium 1.7 09/16/17 185: Anion Gap 11, Estimated GFR > 60, BUN/Creatinine Ratio 20.0, Glucose 192 H, Calcium 9.3, Total Bilirubin 0.3, AST 17, ALT 21, Alkaline Phosphatase 85, Troponin I < 0.01, Total Protein 6.8, Albumin 3.6, Globulin 3.2, Albumin/ Globulin Ratio 1.1, Lipase 23, CBC w Diff NO MAN DIFF REQ, RBC 4.51, MCV 84.2, MCH 26.4 L, MCHC 31.4 L, RDW 19.1 H, MPV 8.2, Gran % 69.6, Lymphocytes % 18.6 L, Monocytes % 10.3 H, Eosinophils % 1.0, Basophils % 0.5, Absolute Granulocytes 4.3, Absolute Lymphocytes 1.1 L, Absolute Monocytes 0.6, Absolute Eosinophils 0.1, Absolute Basophils 0, Serum Alcohol < 10.0 Microbiology 09/16 2213 STOOL: Clostridium difficile Toxin A & B - ORD 09/16 2118 BLOOD: Blood Culture - RECD 09/16 2113 URINE ROUT: Legionella Antigen - COMP 09/16 2113 URINE ROUT: Streptococcus pneumoniae Antigen (M - COMP 09/17 2055 BLOOD: Blood Culture - RECD Patient's chest x-ray shows left lower lobe infiltrate and new pleural effusion compared to previous chest x-ray. Patient's labs are stable. Course rhonchi heard bilaterally on lung exam, patient treated with DuoNeb and reports some improvement. Patient's blood pressure has increased, IV labetalol initiated given hypertensive urgency. Based on these findings Hospital admission is warranted for IV antibiotics, IV antihypertensives, telemetry monitoring, repeat labs. Dr. Keith spoke with Dr. Adair regarding this patient's telemetry admission. Diagnostic Imaging: Viewed by Me: Radiology Read. Discussed w/RAD: Radiology Read. Radiology Impression: PATIENT: SHELDON VASQUEZ PRESENT AGE: 51 PATIENT ACCOUNT NO: [id number] : 63 LOCATION: [facility] ORDERING PHYSICIAN: Oly SAUCEDO SERVICE DATE: 09/16/17 EXAM TYPE: RAD - XRY-CHEST XRAY, TWO VIEWS EXAMINATION: Chest x-ray XRAY, TWO VIEWS CLINICAL INFORMATION: Confusion weakness COPD pneumonia COMPARISON: June 2017 TECHNIQUE: XRY-CHEST XRAY, TWO VIEWS Lungs and Luz: Right lower lobe infiltrates pneumonia redemonstrated on today's exam slightly increased now combined with subsegmental atelectasis. There is a small RIGHT pleural effusion. Pleura: Small RIGHT pleural effusion. Heart: Heart mildly enlarged. Mediastinum: The mediastinum is within normal limits.. Bones: Skeletal structures included are normal for patient's age. IMPRESSION: Slightly increased infiltrate now with subsegmental atelectasis at RIGHT lower lobe with a small RIGHT pleural effusion. DICTATED BY : William VILLA,Hadeer DATE/TIME DICTATED:09/16/171947 MANAGER OF RADIOLOGY: ELIF DATE/TIME TRANSCRIBED:09/16/171947 CONFIDENTIAL, DO NOT COPY WITHOUT APPROPRIATE AUTHORIZATION. <Electronically signed in Other Vendor System> SIGNED BY: Florencia Thomas MD 09/16/171952 Initial ED EKG: sinus rhythm @87bpm, nonspecific ST changes (Oly Perez) Departure Departure Disposition: STILL A PATIENT Condition: Stable Clinical Impression Primary Impression: PNA (pneumonia) Qualifiers: Pneumonia type: due to unspecified organism Laterality: left Lung location: lower lobe of lung Qualified Code: J18.1 - Lobar pneumonia, unspecified organism Secondary Impressions: Hypertensive urgency, Pleural effusion Referrals: Mikel VILLA,Issa Red (PCP/Family) Departure Forms: Customer Survey General Discharge Information Admission Note Spoke With: Nathan Adair MD Documentation of Exam: Documentation of any treatments & extenuating circumstances including Concerns Regarding Discharge (functional status, medication knowledge or non-compliance, living conditions, etc.) that warrant an admission rather than observation: [ Left lower lobe infiltrate and pleural effusion in patient with baseline COPD requiring IV antibiotics, possible infectious disease consult, hypertensive urgency requiring IV antihypertensives, telemetry monitoring, repeat labs, premature discharge medically unsafe] (Oly Perez) PA/BEREAVEMENT PROGRAM COORDINATOR Co-Sign Statement Statement: ED Attending supervision documentation- [x] I saw and evaluated the patient. I have also reviewed all the pertinent lab results and diagnostic results. I agree with the findings and the plan of care as documented in the PA's/BEREAVEMENT PROGRAM COORDINATOR's documentation. [] I have reviewed the ED Record and agree with the PA's/BEREAVEMENT PROGRAM COORDINATOR's documentation. [] Additions or exceptions (if any) to the PAs/BEREAVEMENT PROGRAM COORDINATOR's note and plan are summarized below: [] (Vahid VILLA,Ramy Olivarez) Critical Care Note Critical Care Note Critical Care Time: 30-74 min (Oly Perez)
[2017-09-16 19:05] LABS: ABSOLUTE BASOPHIL COUNT 0 /CUMM (0.0-0.2); ABSOLUTE EOSINOPHIL COUNT 0.1 /CUMM (0.0-0.7); ABSOLUTE GRANULOCYTE CT 4.3 /CUMM (1.4-6.5); ABSOLUTE LYMPH COUNT 1.1 /CUMM (1.2-3.4); ABSOLUTE MONOCYTE COUNT 0.6 /CUMM (0.10-0.60); BASOPHIL % 0.5 % (0.0-2.0); GRANULOCYTE % 69.6 % (42.2-75.2); MEAN CORPUSCULAR HGB 26.4 PG (27.0-31.0); MEAN CORPUSCULAR HGB CONC 31.4 G/DL (33.0-37.0); MEAN CORPUSCULAR VOLUME 84.2 FL (81.0-99.0); MEAN PLATELET VOLUME 8.2 FL (7.4-10.4); PLATELET COUNT 383 /CUMM (130-400); RBC DISTRIBUTION WIDTH 19.1 % (11.5-14.5); RED BLOOD CELL CT 4.51 /CUMM (4.20-5.40); WHITE BLOOD CELL COUNT 6.1 /CUMM (4.8-10.8)
[2017-09-16] MEDS ORDERED: VIMPAT50 M1 PO (19:05)
--- NOTE | 2017-09-16 19:53 | RADIOLOGY REPORT ---
EXAMINATION: Chest x-ray XRAY, TWO VIEWS CLINICAL INFORMATION: Confusion weakness COPD pneumonia COMPARISON: June 2017 TECHNIQUE: XRY-CHEST XRAY, TWO VIEWS Lungs and Luz: Right lower lobe infiltrates pneumonia redemonstrated on today's exam slightly increased now combined with subsegmental atelectasis. There is a small RIGHT pleural effusion. Pleura: Small RIGHT pleural effusion. Heart: Heart mildly enlarged. Mediastinum: The mediastinum is within normal limits.. Bones: Skeletal structures included are normal for patient's age. IMPRESSION: Slightly increased infiltrate now with subsegmental atelectasis at RIGHT lower lobe with a small RIGHT pleural effusion.
--- NOTE | 2017-09-16 21:38 | History & Physical ---
Alexandre Wyatt 09/16/172136: General Information and HPI MD Statement: I have seen and personally examined SHELDON VASQUEZ and documented this H&P. The patient is a 51 year old F who presented with a patient stated chief complaint of [generalized weakness, poor apetite, nausea, and confusion]. Source of Information: patient, family Exam Limitations: no limitations History of Present Illness: The patient is a 51 years old lady with a significant past medical history of insulin dependent DM (on insulin pump), COPD (on night time O2 4 L/Min), ESRD ( Rt side renal transplant 10 years ago - on Tacrolimus, mycophenolate, and prednisolone), CVA/TIA and seizures (from 3 years ago currently on Lacosamide), gasteroparesis, GERD, and neuropathy who has been brought here by her family with CC of generalized weakness and confusion, loss of appetite, and nausea. She Had recurrent diarrhea and she used a lot of loperomide, 6 days ago and was seen in ED and was given ondansetron and discharged to her PCP. Diarrhea improved after that and it stopped 3 days ago. Her family report that she has been lathergic and , weak, has poor appetite, and is nauseos. She reports chills and fevers. She has headache (her blood pressuer was 197/94), but no lightheadedness, SOB, or chest pain. She has a history of COPD and has a long history of cough and during the interview she had productive cough, she also complaint about neuropathy (she uses 120 mgs of codeine daily). She also had a CVA/TIA in 2014 and from then she had a seizure disorder which was started then. PMHx: insulin dependent DM (on insulin pump), COPD (on night time O2 4 L/Min), ESRD (Rt side renal transplant 10 years ago - on Tacrolimus, mycophenolate, and prednisolone), CVA/TIA and seizures (from 3 years ago currently on Lacosamide), gasteroparesis, GERD, and neuropathy (on 120 mg codeine). Surg Hx: Renal Tx (2007), Social Hx: No smoking, no recreational drugs, no alcohol, FHx: not significant. Labs: WbC: 6.1, Hb: 11.9, Hct: 38.0, Plt: 383 Na: 134, K: 4.7, Cl: 92, CO2: 31, BUN: 16, Cr: 0.8, BS: 192 Ca: 9.3, M.7 Trop: 0.01 ---> 0.01 Imagings: CXR: Slightly increased infiltrate now with subsegmental atelectasis at RIGHT lower lobe with a small RIGHT pleural effusion. Allergies/Medications Home Med list Alprazolam (Xanax) 0.25 MG TABLET 1 TAB PO BIDP PRN ANXIETTY (Reported) Codeine Sulfate 60 MG TABLET 60 MG PO TID PRN PAIN (Reported) Diphenoxylate HCl/Atropine (Lomotil 2.5-0.025 MG Tablet) 2.5 MG-0.025 MG TABLET 1-2 TAB PO BID PRN DIARRHEA (Reported) Dipyridamole W/ Aspirin (Aggrenox 25 MG-200 MG Capsule) 25 MG-200 MG CPMP.12HR 1 CAP PO BID ANTIPLATELET (Reported) Famotidine 20 MG TABLET 1 TAB PO BID GI (Reported) Furosemide (Lasix) 40 MG TABLET 1 TAB PO DAILY DIURETIC (Reported) Gabapentin (Neurontin) 300 MG CAPSULE 1 CAP PO TID NEUROPATHY (Reported) Lacosamide (Vimpat) 50 MG TABLET 1 TAB PO BID SEIZURES (Reported) Metoclopramide HCl (Reglan) 10 MG TABLET 1 TAB PO 4XDAILY NAUSEA (Reported) 30 minutes before meals and bedtime Mycophenolate Mofetil 250 MG CAPSULE 3 CAP PO BID KIDNEY TRANSPLANT (Reported ) Ondansetron (Zofran Odt) 4 MG TAB.RAPDIS 1 TAB SL TID PRN NAUSEA Pravastatin Sodium (Pravachol) 40 MG TABLET 1 TAB PO QHS HPL (Reported) Prednisone 5 MG TABLET 1 TAB PO DAILY RENAL TRANSPLANT (Reported) Tacrolimus (Prograf) 1 MG CAPSULE 1.5 MG PO BID TRANSPLANT (Reported) Compliance With Home Meds: GOOD Past History Travel History Traveled to [place] past 21 day No Medical History Neurological: NEUROPATHY EENT: diabetic retinopathy Cardiovascular: ORTHOSTATIC HYPOTENSION Respiratory: bronchitis, COPD, O2 @2L PRN Gastrointestinal: GERD, GASTROPARESIS Hepatic: NONE Renal: KIDNEY TRANSPLANT ACUTE KIDNEY FAILURE Musculoskeletal: OSTEOMYELITIS Psychiatric: NONE Endocrine: diabetes, INSULIN PUMP Blood Disorders: NONE Cancer(s): NONE MASTER TECHNICIAN/Reproductive: NONE History of MRSA: No History of VRE: No History of CDIFF: No Surgical History Surgical History: renal transplant Past Family/Social History Family History Relations & Conditions if any FATHER Relation not specified for: FH: HTN (hypertension) Psychosocial History Services at Home: None ETOH Use: denies use Illicit Drug Use: denies illicit drug use Review of Systems Review of Systems Constitutional: Reports: see HPI. EENTM: Reports: see HPI. Cardiovascular: Reports: see HPI. Respiratory: Reports: see HPI, cough. GI: Reports: see HPI, diarrhea. Genitourinary: Reports: see HPI. Musculoskeletal: Reports: see HPI. Skin: Reports: see HPI. Neurological/Psychological: Reports: see HPI. Hematologic/Endocrine: Reports: see HPI. Immunologic/Allergic: Reports: see HPI. Exam & Diagnostic Data Last 24 Hrs of Vital Signs/I&O Vital Signs Date Time Temp Pulse Resp B/P B/P Pulse O2 O2 Flow FiO2 Mean Ox Delivery Rate 09/17 0111 98.9 84 29 160/90 96 Nasal 4.0L Cannula 09/17 0044 Nasal 4.0L Cannula 09/17 0001 99.2 85 20 181/82 97 Nasal 4.0L Cannula 09/16 2146 99.2 83 17 168/96 96 Nasal 2.0L Cannula 09/16 2116 83 09/16 2116 197/94 09/16 2104 93 204/96 09/16 2002 99.2 95 10 208/92 99 Nasal 4.0L Cannula 09/16 1925 Nasal Cannula 09/16 1758 98.6 88 18 184/92 95 Room Air Intake & Output 09/17 0800 09/17 0000 09/16 1600 Intake Total 1000 Output Total Balance 1000 Intake, IV 1000 Patient 120 lb 120 lb Weight Weight Reported by Patient Measurement Method Physical Exam General Appearance Alert, Oriented X3, Cooperative, Mild Distress Skin No Rashes Skin Temp/Moisture Exam: Warm/Dry Sepsis Skin Exam (color): Normal for Ethnicity HEENT Atraumatic, PERRLA, EOMI, Mucous Membr. moist/pink Neck Supple, No JVD, No LAD Lymphatic Axillary nl, Cervical nl Cardiovascular Regular Rate, Normal S1, Normal S2, systolic murmur 3/6 ( pansystolic) Lungs Clear to Auscultation, bilateral basilar rhonchi Abdomen Normal Bowel Sounds, Soft, No Tenderness, No Masses, She had insulin pump on her abdomen, no inflammation or discharge in site Neurological Normal Speech, Normal Tone, Sensation Intact, Cranial Nerves 3-12 NL Extremities No Clubbing, No Cyanosis, No Edema, Normal Pulses, No Tenderness/ Swelling Vascular Normal Pulses, Pulses Symmetrical Sepsis Peripheral Pulse Location: Dorsalis Pedis Sepsis Peripheral Pulse Exam: Normal Sepsis Cap Refill Exam: <2 Sec Assessment/Plan Assessment: Ms. Cuevas is a 51 years old lady with past medical history of IDDM, ESRD (Rt side renal transplant), COPD (on home night )2 4L/min), TIA/CVA and seizures since 2014, who is here with generalized weakness, fever and chills, headache and loss of appetite. She has a BP of 197/94 and headache and nausea. Her current symptoms (headache), are probably caused by hypertensive emergency. She received labetolol in ED and her last BP was 160 over 90. She has a previous hx of psudomonal pneumonia, and has productive coughs, Her CXR also showed infiltration and small pleural effusion of right side. on P/E right side basilar rales was noticed. So she might be develoing a pneumonia, she is not febrile and her WBC is within normal range, I visited her multiple times overnight, she has no SOB, fever, or cough. But she is immunosuppressed due to the renal transplant medications so we should closely watch her to see if she develops symptoms for pneumonia. The underlying cause for her hypertensive emergency could be due to the developing pneumonia. She is admitted to the Tele for close checking of her BP, BS, IV antibiotics, and consult with real estate photographer, horseback excavator, and real estate photographer. Problem List: Hypertensive urgency Possible developing pneumonia Renal transplant on immunosuppresant IDDM on insulin pump COPD on 4L/min night time home O2 CVA/TIA and seizure since 2014 on antiepileptics Diabetic neuropathy Gasteroparesis and GERD Core Measures/Misc (11/12) Cerebrovascular Accident CVA/TIA Diagnosis: No Sepsis (View protocol) Sepsis Present: No If YES complete Sepsis Event Note If YES complete Sepsis Event Note Jaquan Rea MD 09/16/17 3826: Assessment/Plan As Ranked By This Provider Problem List: 1. Hypertensive urgency Core Measures/Misc (11/12) Acute Coronary Syndrome ACS Diagnosis: No Congestive Heart Failure Congestive Heart Failure Diagnosis No VTE (View Protocol) VTE Risk Factors Age>40 No Mechanical VTE Prophylaxis d/t N/A MechProphylax Ordered No VTE Pharm Prophylaxis d/t NA PharmProphylax ordered Sepsis (View protocol) If YES complete Sepsis Event Note If YES complete Sepsis Event Note Resident Review Statement Resident Statement: examined this patient, discussed with technology risk intern, agreed with technology risk intern, reviewed EMR data (avail) Other Findings: History of Present Illness 51 year old woman with past medical history of IDDM on insulin pump, COPD on 4.0L nocturnal o2, ESRD s/p right renal transplant (2007) on prednisone/ tacrolimus/mycophenolate, psuedomonal pneumonia (2014), TIA/CVA, seizure disorder, GERD, gastroparesis, and neuropathy brought in by family members for worsening mental status and weakness. Patient was seen in the [facility] ED on 09/13/17 for recurent diarrhea self treated with "a lot of imodium" for which she was prescribed zofran and discharged to home with instruction to follow up with her PCP. Since that time her diarrhea has resolved. Collateral information was obtained from patients and sister whom were present during the interview. They report that the patient has been progressively more fatigued, weak, with persistent nausea and now decreased PO intake. Patient is awake and alert, but appears tired and ill appearing. She admits to headache, fever, chills and a chronic not productive cough. She hasn't been eating / drinking well, but has been compliant with her medications. Review of Systems She otherwise denies any ligtheadedness, dizziness, chest pain, palpitations, shortness of breath, nausea, vomiting, current diarrhea, abdominal pain, constipation, urinary complaints, numbness, tingling, or weakness. Social History She denies smoking cigarettes, drinking alcohol, or using recreational drugs. She recently started Vimpat for her seizure disorder diagnosed in November 2016. She is followed by neurologist Dr. Barrientos, specification writer/PCP Dr. Morin, Xm1 Tank Driver Dr. Ledesma, fuel quality tech Dr. Blevins, and horseback excavator Dr. Rogers. Objective Vitals - Temp 98.6-99.2, HR 88-95, RR 10-18, BP 184-208/92, O2 92-93% on 4.0L via NC Physical Exam -General: thin, ill appearing middle aged woman in no acute distress -HEENT: NCAT, PERRL, EOMI, anicteric sclera, nasal cannula in place -Neck: Supple, no JVD, trachea midline, no accessory respiratory muscle use -Cardio: 2/6 systolic murmur; regular rate and rhythm -Pulm: harsh scattered rhonchit with scant right lower lobe crackles -Abdomen: Soft, NT, ND, BS+ -Neuro: Awake and alert, oriented x3, CN II-XII grossly intact -Ext: normal pulses, 1+ bilateral nonpitting edema Labs / Imaging / Studies -CBC: WBC 6.1, Hgb 11.9, Hct 38.0, Plt 383 -BMP: Na 134, K 4.7, Cl 92, CO2 31, BUN 16, Cr 0.8, AG 11, Plt 192 -LFT: within normal limits -Misc: Mg 1.7, troponin I <0.01, Lipase negative, lacitc 0.9, EtOH <10 -UA: unremarkable -UTox: positive for opiates -EKG: normal sinus rhythm -Echo 03/10/14: LVEF > 65%, stage-II diastolic dysfunction, mild conc. LVH, mild with increased LVOT velocity -CXR: * Slightly increased infiltrate now with subsegmental atelectasis at RIGHT lower lobe with a small RIGHT pleural effusion. Assessment 51 year old woman with multiple medical problems significant for ESRD s/p transplant, IDDM on insulin pulm, COPD on 4.0L o2, pseudomonal pneumonia, TIA/ CVA, and seizure disorder seen for evaluation of recent diarrhea with resulting nausea, weakness, fatigue, headache, fever, chills, and decreased PO intake. Patient currently is complaining of chronic leg pain in addition to above. Vitals signs are significant for BP 18-208 systolic and are otherwise within normal limits. Physical exam demonstrates an ill appearing woman but in no acute distress with loud scattered rhonchi and scant right lower lobe crackles. Labs including CBC, BMP, LFT, troponin, lactic acid, ua, lipase and EtOH are within normal limits or negative; utox is positive for opiates. CXR has an icnreased infiltrate in the RLL with associated small effusion. Clinically patient appears to have hypertensive urgency secondary to possibly a developing pneumonia. Currently she is afebrile without leukocytosis or subjective shortness of breath saturating well on her baseline supplement oxygen in no acute respiratory distress. She does however admit to fever, chills, with a history of pseudomonal pneumonia in the context of immunosuppresion. Patient is to be admitted to the telemetry floor for telemetry monitoring, blood pressure control, intravenous antibiotics, and nephrology / cardiology / endocrinology evaluation. Problem List -Hypertensive urgency -Subjective fever/chills with RLL infiltrate/effusion, possible developing pneumonia -ESRD s/p renal transplant (2007), on prednisone, tacrolimus, mycophenolate -COPD on 4.0L nocturnal 02 -Insulin-dependent diabetes mellitus, on insulin pump -History of pseudomonal pneumonia -Seizure disorder, on Vimpat -History of TIA/CVA -Diabetic neuropathy -Diabetic gastroparesis -GERD -History of osteomyelitis status post fourth right toe amputation Plan -Admit to telemetry floor -Telemetry monitoring -Monitor blood pressure closely -Accuchecks TIDAC / HS with Novolog SSI -Hold insulin pump while in hospital -Doxycycline 100 mg PO BID -Ceftazidime 1 g IV BID -Continue home meds: Alprazolam, codeine, dipyridamole/aspirin, famotidine, Lasix, gabapentin, Vimpat, Reglan, mycophenolate, Zofran, pravastatin, prednisone, tacrolimus -Consult with nephrology for history of renal disease and evaluation of renovascular hypertension -Consult with cardiology for history of heart disease and new uncontrolled hypertension -Consult with endocrinology for diabetes management -Consider pulmonology consult if breathing worse -Follow up cultures & sensitivities -Sputum culture -Check strep / legionella antigen -Check C. Diff toxin if diarrhea returns -Transthoracic echocardiogram -Trend troponin / EKG until peak or three negative sets -Pain control with codeine -Regular Diet -DVT PPx with subcutaneous heparin -DNR/DNI Giovany VILLABrodhead 09/17/17 0203: General Information and HPI MD Statement: I have seen and personally examined PEDROSHELDON and documented this H&P. The patient is a 51 year old F who presented with a patient stated chief complaint of [weakness]. Source of Information: patient, family Exam Limitations: no limitations Allergies/Medications Allergies: Coded Allergies: erythromycin base (From ERYTHROCIN) (NAUSEA 09/13/17) Past History Medical History EENT: diabetic retinopathy Respiratory: COPD Gastrointestinal: GERD, GASTROPARESIS Renal: KIDNEY TRANSPLANT ACUTE KIDNEY FAILURE Endocrine: diabetes Surgical History Surgical History: renal transplant Past Family/Social History Psychosocial History Smoking Status: Never Smoked ETOH Use: denies use Illicit Drug Use: denies illicit drug use Review of Systems Review of Systems Constitutional: Reports: see HPI. Exam & Diagnostic Data Last 24 Hrs of Vital Signs/I&O Vital Signs Date Time Temp Pulse Resp B/P B/P Pulse O2 O2 Flow FiO2 Mean Ox Delivery Rate 09/17 0111 98.9 84 29 160/90 96 Nasal 4.0L Cannula 09/17 0044 Nasal 4.0L Cannula 09/17 0001 99.2 85 20 181/82 97 Nasal 4.0L Cannula 09/16 2146 99.2 83 17 168/96 96 Nasal 2.0L Cannula 09/16 2116 83 09/16 2116 197/94 09/16 2104 93 204/96 09/16 2002 99.2 95 10 208/92 99 Nasal 4.0L Cannula 09/16 1925 Nasal Cannula 09/16 1758 98.6 88 18 184/92 95 Room Air Intake & Output 09/17 0800 09/17 0000 09/16 1600 Intake Total 1000 Output Total Balance 1000 Intake, IV 1000 Patient 120 lb 120 lb Weight Weight Reported by Patient Measurement Method Physical Exam General Appearance Alert, Oriented X3, Cooperative, Mild Distress HEENT Atraumatic, PERRLA, EOMI Neck Supple, No JVD Lymphatic Axillary nl, Cervical nl Cardiovascular Regular Rate, 2/6 systolic murmur Lungs bilateral lower lobe rhonchi Abdomen Soft, No Tenderness Neurological Normal Speech Extremities No Clubbing, No Cyanosis, No Edema Last 24 Hrs of Labs/Shabbir: Laboratory Tests 09/17/17 0100: Troponin I Pending 09/16/17 2323: Lactic Acid Cancelled 09/16/17 2114: Urine Opiates Screen > 4000.00 H, Methadone Screen < 40, Barbiturate Screen < 60, Ur Phencyclidine Scrn < 6.00, Amphetamines Screen < 100, U Benzodiazepines Scrn < 85, Urine Cocaine Screen < 50, Urine Cannabis Screen < 5.00, Urine Color YEL, Urine Clarity CLEAR, Urine pH 6.5, Ur Specific [place] 1.025, Urine Protein TRACE H, Urine Ketones NEG, Urine Nitrite NEG, Urine Bilirubin NEG, Urine Urobilinogen 0.2, Ur Leukocyte Esterase NEG, Ur Microscopic SEDIMENT EXAMINED, Urine RBC RARE, Urine WBC RARE, Ur Epithelial Cells RARE, Urine Bacteria RARE H , Urine Mucus RARE, Urine Hemoglobin NEG, Urine Glucose NEG 09/16/172055: Lactic Acid 0.9 09/16/171849: Magnesium 1.7 09/16/171849: Anion Gap 11, Estimated GFR > 60, BUN/Creatinine Ratio 20.0, Glucose 192 H, Calcium 9.3, Total Bilirubin 0.3, AST 17, ALT 21, Alkaline Phosphatase 85, Troponin I < 0.01, Total Protein 6.8, Albumin 3.6, Globulin 3.2, Albumin/ Globulin Ratio 1.1, Lipase 23, CBC w Diff NO MAN DIFF REQ, RBC 4.51, MCV 84.2, MCH 26.4 L, MCHC 31.4 L, RDW 19.1 H, MPV 8.2, Gran % 69.6, Lymphocytes % 18.6 L, Monocytes % 10.3 H, Eosinophils % 1.0, Basophils % 0.5, Absolute Granulocytes 4.3, Absolute Lymphocytes 1.1 L, Absolute Monocytes 0.6, Absolute Eosinophils 0.1, Absolute Basophils 0, Serum Alcohol < 10.0 Microbiology 09/16 2213 STOOL: Clostridium difficile Toxin A & B - ORD 09/16 2118 BLOOD: Blood Culture - RECD 09/16 2113 URINE ROUT: Legionella Antigen - COMP 09/16 2113 URINE ROUT: Streptococcus pneumoniae Antigen (M - COMP 09/17 2055 BLOOD: Blood Culture - RECD Diagnostic Data EKG Results normal sinus rhythm CXR Results Slightly increased infiltrate now with subsegmental atelectasis at RIGHT lower lobe with a small RIGHT pleural effusion. Core Measures/Misc (11/12) Sepsis (View protocol) If YES complete Sepsis Event Note If YES complete Sepsis Event Note Attending MD Review Statement Attending Statement Attending MD Statement: examined this patient, discuss w/resident/PA/HEAT AND VENT AIRCRAFT MECHANIC, agreed w/resident/PA/HEAT AND VENT AIRCRAFT MECHANIC, amended to note Attending Assessment/Plan: This patient is a 51 year old white female with a significant past medical history for IDDM on insulin pump, COPD on 4.0L nocturnal O2, ESRD s/p right renal transplant (2007) on prednisone/tacrolimus/mycophenolate, psuedomonal pneumonia (2014), TIA/CVA, seizure disorder, GERD, gastroparesis, and neuropathy brought in by family members for worsening mental status and weakness. The family reports that the patient has been progressively more fatigued, weak, with persistent nausea and now decreased PO intake. Patient is awake and alert, but appears tired and ill appearing. She admits to headache, fever, chills and a chronic not productive cough. She hasn't been eating / drinking well, but has been compliant with her medications. While in the ED she is found to have a Blood pressure of 208/92 and Satting 92% on 4L. Her UTox is positive for opiates. Her CXR may be consistent with an early RLL infiltrate. Clinically patient appears to have hypertensive urgency secondary to possibly a developing pneumonia. Currently she is afebrile without leukocytosis or subjective shortness of breath saturating well on her baseline supplement oxygen in no acute respiratory distress. She does however admit to fever, chills, with a history of pseudomonal pneumonia in the context of immunosuppresion. Patient is to be admitted to the telemetry floor for telemetry monitoring, blood pressure control, intravenous antibiotics, and nephrology / cardiology / endocrinology evaluation. Treated with Doxycycline and Ceftazidime.
[2017-09-17 01:11] VITALS: BP 160/90
[2017-09-17 06:49] VITALS: BP 148/70
--- NOTE | 2017-09-17 07:28 | PN- Housestaff ---
Aristeo Forbes 09/17/17 0727: Subjective Follow-up For: Hypertensive urgency Pneumonia (no longer high suspicion) Renal transplant on immunosuppresant IDDM COPD History of CVA/TIA and seizures Tele-Events Since Last Visit: Overnight patient in normal sinus rhythm with rate from 75-94 Subjective: Pateint seen resting comfortably in the bed. She reports feeling much better, and states that she was confused upon admission, but this has resolved. She denies chest pain, weakness, diarrhea. Patient had been seen in the ED on the for c/o diarrhea, but was sent home, prior to being admitted for weakness. Patient attributes this to dehydration. She is a good historian and is very involved and informed about her ongoing medical issues. Review of Systems Constitutional: Denies: chills, fever. Cardiovascular: Denies: chest pain, palpitations. Respiratory: Reports: cough, short of breath. Gastrointestinal: Denies: abdominal pain, nausea. Objective Last 24 Hrs of Vital Signs/I&O Vital Signs Date Time Temp Pulse Resp B/P B/P Pulse O2 O2 Flow FiO2 Mean Ox Delivery Rate 09/17 0649 98.7 80 26 148/70 95 09/17 0111 98.9 84 29 160/90 96 Nasal 4.0L Cannula 09/17 0044 Nasal 4.0L Cannula 09/17 0001 99.2 85 20 181/82 97 Nasal 4.0L Cannula 09/16 2146 99.2 83 17 168/96 96 Nasal 2.0L Cannula 09/16 2116 83 09/16 2116 197/94 09/16 2104 93 204/96 09/16 2002 99.2 95 10 208/92 99 Nasal 4.0L Cannula 09/16 1925 Nasal Cannula 09/16 1758 98.6 88 18 184/92 95 Room Air Intake & Output 09/17 0800 09/17 0000 09/16 1600 Intake Total 120 1000 Output Total 200 Balance -80 1000 Intake, IV 1000 Intake, Oral 120 Output, Urine 200 Patient 57.606 kg 54.431 kg Weight Weight Bed scale Reported by Patient Measurement Method Physical Exam General Appearance: Alert, Oriented X3, Cooperative, No Acute Distress HEENT: Atraumatic Cardiovascular: Regular Rate, Normal S1, Normal S2 Lungs: Congested, with diffuse crackles throughout and wheezing Abdomen: Soft, No Tenderness Current Medications: Current Medications Sig/Marvin Start time Last Medication Dose Route Stop Time Status Admin Acetaminophen 650 MG Q6P PRN 09/16 2215 AC PO Albuterol Sulfate 3 ML ONCE ONE 09/16 1845 DC 09/16 INH 09/16 1845 193 Alprazolam 0 .STK-MED ONE 09/17 0004 DC PO Alprazolam 0.25 MG BID PRN 09/16 2145 AC 09/17 PO 09/23 214 0005 Ceftazidime 1,000 MG Q12 09/17 09 AC IV Ceftazidime 0 .STK-MED ONE 09/16 2118 DC .ROUTE Ceftazidime 1,000 MG ONCE ONE 09/16 2029 DC 09/16 IV 09/16 Codeine 120 MG Q8 PRN 09/16 2144 AC 09/17 PO 0221 Dipyridamole/Aspirin 1 CAP BID 09/16 2300 AC 09/16 PO 2330 Doxycycline Hyclate 100 MG BID 09/17 0900 AC PO Doxycycline Hyclate 0 .STK-MED ONE 09/16 2118 DC PO Doxycycline Hyclate 100 MG ONCE ONE 09/16 2029 DC 09/16 PO 09/16 Famotidine 20 MG BID 09/16 2138 AC 09/16 PO 2233 Furosemide 40 MG DAILY 09/17 0900 AC PO Gabapentin 300 MG TID 09/16 2138 AC 09/16 PO 223 Heparin Sodium 5,000 UNIT Q8 09/17 0600 AC 09/17 (Porcine) SC 0519 Insulin Aspart 0 TIDAC 09/17 0800 AC SC Insulin Aspart 0 TIDAC 09/17 0800 AC SC Insulin Detemir 7 UNITS BID 09/17 0248 AC SC Insulin Human Regular 5 UNITS ONCE ONE 09/17 0315 DC 09/17 SC 09/17 0316 0315 Ipratropium [place] 2.5 ML ONCE ONE 09/16 1845 DC 09/16 INH 09/16 184 1934 Labetalol HCl 0 .STK-MED ONE 09/16 2100 DC IV Labetalol HCl 10 MG ONCE ONE 09/16 2029 DC 09/16 IV 09/16 Lacosamide 50 MG BID 09/16 2138 AC 09/16 PO 2330 Metoclopramide HCl 10 MG TIDAC 09/17 0800 AC PO Mycophenolate Mofetil 750 MG BID 09/16 2137 AC 09/16 PO 2233 Ondansetron HCl 4 MG Q6P PRN 09/16 2215 AC IV Pravastatin Sodium 40 MG 1700 09/17 1700 AC PO Prednisone 5 MG DAILY 09/17 0900 AC PO Sodium Chloride 1,000 ML BOLUS ONE 09/16 1830 DC 09/16 IV 09/16 1929 1923 Tacrolimus 1.5 MG BID 09/16 2145 AC 09/16 PO 2233 Last 24 Hrs of Lab/Shabbir Results Last 24 Hrs of Labs/Mics: Laboratory Tests 09/17/17 0635: Sodium Pending, Potassium Pending, Chloride Pending, Carbon Dioxide Pending, Anion Gap Pending, BUN Pending, Creatinine Pending, BUN/Creatinine Ratio Pending , Magnesium Pending, Troponin I Pending, CBC w Diff Pending, WBC Pending, RBC Pending, Hgb Pending, Hct Pending, MCV Pending, MCH Pending, MCHC Pending, RDW Pending, Plt Count Pending, MPV Pending 09/17/17 0100: Troponin I < 0.01 09/16/17 2323: Lactic Acid Cancelled 09/16/174: Urine Opiates Screen > 4000.00 H, Methadone Screen < 40, Barbiturate Screen < 60, Ur Phencyclidine Scrn < 6.00, Amphetamines Screen < 100, U Benzodiazepines Scrn < 85, Urine Cocaine Screen < 50, Urine Cannabis Screen < 5.00, Urine Color YEL, Urine Clarity CLEAR, Urine pH 6.5, Ur Specific [place] 1.025, Urine Protein TRACE H, Urine Ketones NEG, Urine Nitrite NEG, Urine Bilirubin NEG, Urine Urobilinogen 0.2, Ur Leukocyte Esterase NEG, Ur Microscopic SEDIMENT EXAMINED, Urine RBC RARE, Urine WBC RARE, Ur Epithelial Cells RARE, Urine Bacteria RARE H , Urine Mucus RARE, Urine Hemoglobin NEG, Urine Glucose NEG 09/16/172055: Lactic Acid 0.9 09/16/17 1850: Magnesium 1.7 09/16/17 185: Anion Gap 11, Estimated GFR > 60, BUN/Creatinine Ratio 20.0, Glucose 192 H, Calcium 9.3, Total Bilirubin 0.3, AST 17, ALT 21, Alkaline Phosphatase 85, Troponin I < 0.01, Total Protein 6.8, Albumin 3.6, Globulin 3.2, Albumin/ Globulin Ratio 1.1, Lipase 23, CBC w Diff NO MAN DIFF REQ, RBC 4.51, MCV 84.2, MCH 26.4 L, MCHC 31.4 L, RDW 19.1 H, MPV 8.2, Gran % 69.6, Lymphocytes % 18.6 L, Monocytes % 10.3 H, Eosinophils % 1.0, Basophils % 0.5, Absolute Granulocytes 4.3, Absolute Lymphocytes 1.1 L, Absolute Monocytes 0.6, Absolute Eosinophils 0.1, Absolute Basophils 0, Serum Alcohol < 10.0 Microbiology 09/16 2213 STOOL: Clostridium difficile Toxin A & B - COLB 09/16 2118 BLOOD: Blood Culture - RECD 09/16 2113 URINE ROUT: Legionella Antigen - COMP 09/16 2113 URINE ROUT: Streptococcus pneumoniae Antigen (M - COMP 09/17 2055 BLOOD: Blood Culture - RECD Assessment/Plan Assessment: 51 year old female with history of ESRD s/p renal transplant on immunosuppression, as well as IDDM, HTN, COPD, history of TIA/CVA and seizures. The patient had been seen in the ED for diarrhea 3 days prior to being admitted with weakness, hypertensive urgency and altered mental status in the setting of hypoxia. Pneumonia was clinically suspected and empiric antibiotics were started in the setting of immunosuppression, without fever or white count. Patient feels much better this morning, and is on 4L with the nasal cannula, which the patient usually uses overnight at home. The overnight O2 was apparently prescribed by the patient's neurologist to reduce hypoxia and seizures overnight. The patient reports that she sees Dr. Holman for pulmonology, although he reports that he no longer follows with the patient, recommended contacting the pulmonology service. The patient's blood pressures have been gradually improving overnight into this morning. Problems: 1. ESRD s/p renal transplant on immunosuppressants 2. Hypertensive urgency 3. Possible pneumonia on immunosuppression 4. IDDM, gastroparesis 5. History of CVA/TIA and seizures Plan: * Nephrology consulted for ESRD s/p renal transplant, to continue on home immunosuppressants * Sputum culture, and antibiotics per ID recommendations, Unasyn started * Lisinopril and amlodipine for management of hypertension * Endocrinology consulted, insulin pump stopped for inpatient stay, ISS started Code status: DNR/DNI Prophylaxis: Heparin sc Labs: CBC & BEP Diet: Low fat diet (gastroparesis) Problem List: 1. Hypertensive urgency 2. Pleural effusion Pain Ratin Pain Location: none Pain Goal: Pain 4 or less Pain Plan: per pathway Tomorrow's Labs & Rationales: BEP & CBC Winsome VILLA,Kranthi 09/17/17 1148: Attending Review Statement Attending Statement Attending MD Statement: examined this patient, discuss w/resident/PA/DIGITAL HARDWARE DESIGN ENGINEER, agreed w/resident/PA/DIGITAL HARDWARE DESIGN ENGINEER, reviewed EMR data (avail), discussed with nursing, discussed with case mgmt, amended to note Attending Assessment/Plan: Patient seen and examined. Very pleasant lying comfortably in bed not in any acute distress. Admits to chronic shortness of breath and reports that this is unchanged. Admits to chronic cough but states that she is having more phlegm production. Denies fever or chills. She is afebrile. She is hemodynamically stable. She is maintaining saturation on 4 L of oxygen. She however states that she is on oxygen at home 4 L only at nighttime to help prevent seizures. She reports that her oxygen was prescribed by her neurologist. She does have a history of COPD and bronchiectasis. Denies any further nausea vomiting. Denies abdominal pain. Tolerating a diet. She reported diarrhea prior to admission but states this is now resolved. On examination heart sounds are regular. She has diffuse scattered rhonchorous breath sounds. Abdomen is nondistended soft and nontender with normal bowel sounds. She has no peripheral edema. Problems: 1. Nausea vomiting; resolved 2. Bronchiectasis 3. Chronic hypoxic respiratory failure; likely secondary to COPD/ bronchiectasis. 4. End-stage renal disease status post renal transplant on immunosuppressive therapy. 5. History of stroke and TIA. 6. Seizure disorder. 7. Insulin-dependent diabetes mellitus Recommendations: -Patient presented with complaints of nausea vomiting. Symptoms may be related to her gastroparesis. This appears to be resolving. If she develops further episodes of nausea vomiting or abdominal pain or tenderness would recommend consultation with the gastroenterology service for evaluation of gastroparesis. -Due to hospital policy insulin pump has been held. Endocrinology consult appreciated. We will follow recommendations. This has been discussed with the patient and she verbalized understanding. -She shows no clinical evidence of an infection at present. -Patient is afebrile and has no leukocytosis. She has a chronic productive cough and chronic abnormal breath sounds. Chest x-ray findings also most likely chronic due to underlying bronchiectasis. She however does report increased phlegm production. Recommend follow-up with the pulmonology service regarding need for antibiotic therapy. -Blood pressure has improved. She takes these at home but she reports she takes it as needed for leg swellings. She has a history of orthostatic hypotension. Will avoid aggressive control of her blood pressure. Discontinue further diuretic therapy for now as she appears euvolemic. -Renal service has been notified of her admission. -Continue her antiseizure med regimen. -Patient reports having left sided weakness prior to hospitalization last month. She states that she felt it was a stroke but her symptoms resolved completely. She reports following up with her hostess host regarding this. Apparently outpatient head CT and carotid Dopplers were obtained. Carotid Doppler showed no significant stenosis. Head CT showed no acute bleed or infarct however it did show a new area of age-indeterminate ischemia in the right leary radiata and a small chronic infarct in the posterior right leary radiata. Continue antiplatelet therapy with Plavix. Continue statin therapy. Recommend outpatient neurology consultation if not previously done by her outpatient providers. -Chronic anemia noted. Mild drop noted. Repeat CBC in a.m.
[2017-09-17 07:54] LABS: ABSOLUTE BASOPHIL COUNT 0 /CUMM (0.0-0.2); ABSOLUTE EOSINOPHIL COUNT 0.1 /CUMM (0.0-0.7); ABSOLUTE GRANULOCYTE CT 4.6 /CUMM (1.4-6.5); ABSOLUTE LYMPH COUNT 1.5 /CUMM (1.2-3.4); ABSOLUTE MONOCYTE COUNT 0.8 /CUMM (0.10-0.60); BASOPHIL % 0.4 % (0.0-2.0); EOSINOPHIL % 0.8 % (0-5); GRANULOCYTE % 66.1 % (42.2-75.2); MEAN CORPUSCULAR HGB 27.3 PG (27.0-31.0); MEAN CORPUSCULAR HGB CONC 31.9 G/DL (33.0-37.0); MEAN CORPUSCULAR VOLUME 85.5 FL (81.0-99.0); MEAN PLATELET VOLUME 8.6 FL (7.4-10.4); PLATELET COUNT 332 /CUMM (130-400); RBC DISTRIBUTION WIDTH 19.1 % (11.5-14.5); RED BLOOD CELL CT 3.83 /CUMM (4.20-5.40); WHITE BLOOD CELL COUNT 6.9 /CUMM (4.8-10.8)
[2017-09-17 08:30] LABS: HEMATOCRIT 32.7 % (37-47)
--- NOTE | 2017-09-17 09:42 | Cons- Endocrinology ---
See Addendum General Information and HPI Consulting Request Date of Consult: 09/17/17 Requested By: Medical team Reason for Consult: management of DM type 1/ she was on medtronic insulin pump prior to admission Source of Information: patient, old records Exam Limitations: no limitations History of Present Illness: 51 years old lady with a significant past medical history of insulin dependent DM (on insulin pump), COPD (on night time O2 4 L/Min), ESRD (Rt side renal transplant 10 years ago, on Tacrolimus, mycophenolate, and prednisolone), CVA/ TIA and seizures , gasteroparesis, GERD, and neuropathy, was broght to ER for evaluation of loss of appetite, and nausea. Her BP was found to be 208/92. She was admitted to tele for hypertensive urgency. Her insulin pump settings: Basal rate: midnight 1.2 units per hour; 3 am 0.775 units per hour; 6 am 0.75 units per hour 12 pm 1.0 units per hour 4 pm 1.55 units per hour 22 pm 0.075 units per hour IC ratio 16 grams; insulin sensitivity 70-100 mg/dl Target: 110-120 mg/dl Active insulin time: 4 hours In hospital, she was put on Levemir 7 units twice a day, Novolog coverage before meals. Her FSGs were 161, 316 and 224. Her BP was down to 148/70 this morning and her nausea was better. She was able to tolerate a cup of soup. Allergies/Medications Allergies: Coded Allergies: erythromycin base (From ERYTHROCIN) (NAUSEA 09/13/17) Home Med List: Alprazolam (Xanax) 0.25 MG TABLET 1 TAB PO BIDP PRN ANXIETTY (Reported) Codeine Sulfate 60 MG TABLET 60 MG PO TID PRN PAIN (Reported) Diphenoxylate HCl/Atropine (Lomotil 2.5-0.025 MG Tablet) 2.5 MG-0.025 MG TABLET 1-2 TAB PO BID PRN DIARRHEA (Reported) Dipyridamole W/ Aspirin (Aggrenox 25 MG-200 MG Capsule) 25 MG-200 MG CPMP.12HR 1 CAP PO BID ANTIPLATELET (Reported) Famotidine 20 MG TABLET 1 TAB PO BID GI (Reported) Furosemide (Lasix) 40 MG TABLET 1 TAB PO DAILY DIURETIC (Reported) Gabapentin (Neurontin) 300 MG CAPSULE 1 CAP PO TID NEUROPATHY (Reported) Lacosamide (Vimpat) 50 MG TABLET 1 TAB PO BID SEIZURES (Reported) Metoclopramide HCl (Reglan) 10 MG TABLET 1 TAB PO 4XDAILY NAUSEA (Reported) 30 minutes before meals and bedtime Mycophenolate Mofetil 250 MG CAPSULE 3 CAP PO BID KIDNEY TRANSPLANT (Reported ) Ondansetron (Zofran Odt) 4 MG TAB.RAPDIS 1 TAB SL TID PRN NAUSEA Pravastatin Sodium (Pravachol) 40 MG TABLET 1 TAB PO QHS HPL (Reported) Prednisone 5 MG TABLET 1 TAB PO DAILY RENAL TRANSPLANT (Reported) Tacrolimus (Prograf) 1 MG CAPSULE 1.5 MG PO BID TRANSPLANT (Reported) Review of Systems Review of Systems Constitutional: Reports: see HPI. Cardiovascular: Denies: chest pain. Respiratory: Denies: short of breath. GI: Denies: abdominal pain. Musculoskeletal: Denies: back pain. Hematologic/Endocrine: Denies: polyuria, polydipsia. 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 OPERATOR/Reproductive: NONE Surgical History Surgical History: renal transplant Family History Relations & Conditions If Any: FATHER Relation not specified for: FH: HTN (hypertension) Psychosocial History Services at Home: None Smoking Status: Never Smoked ETOH Use: denies use Illicit Drug Use: denies illicit drug use Exam & Diagnostic Data Last 24 Hrs of Vital Signs/I&O Vital Signs Date Time Temp Pulse Resp B/P B/P Pulse O2 O2 Flow FiO2 Mean Ox Delivery Rate 09/17 0800 Nasal 4.0L Cannula 09/17 0649 98.7 80 26 148/70 95 09/17 0111 98.9 84 29 160/90 96 Nasal 4.0L Cannula 09/17 0044 Nasal 4.0L Cannula 09/17 0001 99.2 85 20 181/82 97 Nasal 4.0L Cannula 09/16 2145 99.2 83 17 168/96 96 Nasal 2.0L Cannula 09/166 83 09/166 197/94 09/164 93 204/96 07/22 2002 99.2 95 10 208/92 99 Nasal 4.0L Cannula 09/16 1924 Nasal Cannula 09/16 1757 98.6 88 18 184/92 95 Room Air Intake & Output 09/17 1600 09/17 0800 09/17 0000 Intake Total 120 1000 Output Total 200 Balance -80 1000 Intake, IV 1000 Intake, Oral 120 Output, Urine 200 Patient 127 lb 120 lb Weight Weight Bed scale Reported by Patient Measurement Method Physical Exam General Appearance: no apparent distress Neck: normal inspection, supple Respiratory: crackles (chronic), rhonchi Cardiovascular: regular rate/rhythm Gastrointestinal: soft, non-tender Extremities: no edema Labs/Shabbir Results: Laboratory Tests 09/17 09/17 09/16 0635 0100 2323 Chemistry Sodium (137 - 145 mmol/L) 133 L Potassium (3.5 - 5.1 mmol/L) 4.4 Chloride (98 - 107 mmol/L) 96 L Carbon Dioxide (22 - 30 mmol/L) 30 Anion Gap (5 - 16) 7 BUN (7 - 17 mg/dL) 16 Creatinine (0.5 - 1.0 mg/dL) 0.7 Estimated GFR (>60 ml/min) > 60 BUN/Creatinine Ratio (7 - 25 %) 22.9 Lactic Acid Cancelled Magnesium (1.6 - 2.3 mg/dL) 1.7 Troponin I (< 0.11 ng/ml) < 0.01 < 0.01 Hematology CBC w Diff NO MAN DIFF REQ WBC (4.8 - 10.8 /CUMM) 6.9 RBC (4.20 - 5.40 /CUMM) 3.83 L Hgb (12.0 - 16.0 G/DL) 10.4 L Hct (37 - 47 %) 32.7 L MCV (81.0 - 99.0 FL) 85.5 MCH (27.0 - 31.0 PG) 27.3 MCHC (33.0 - 37.0 G/DL) 31.9 L RDW (11.5 - 14.5 %) 19.1 H Plt Count (130 - 400 /CUMM) 332 MPV (7.4 - 10.4 FL) 8.6 Gran % (42.2 - 75.2 %) 66.1 Lymphocytes % (20.5 - 51.1 %) 21.0 Monocytes % (1.7 - 9.3 %) 11.7 H Eosinophils % (0 - 5 %) 0.8 Basophils % (0.0 - 2.0 %) 0.4 Absolute Granulocytes (1.4 - 6.5 /CUMM) 4.6 Absolute Lymphocytes (1.2 - 3.4 /CUMM) 1.5 Absolute Monocytes (0.10 - 0.60 /CUMM) 0.8 H Absolute Eosinophils (0.0 - 0.7 /CUMM) 0.1 Absolute Basophils (0.0 - 0.2 /CUMM) 0 09/16 Chemistry Lactic Acid (0.7 - 2.1 mmol/L) 0.9 Magnesium (1.6 - 2.3 mg/dL) 1.7 Toxicology Urine Opiates Screen (>2000 NG/ML) > 4000.00 H Methadone Screen (>300 NG/ML) < 40 Barbiturate Screen (>200 NG/ML) < 60 Ur Phencyclidine Scrn (>25 NG/ML) < 6.00 Amphetamines Screen (>1000 NG/ML) < 100 U Benzodiazepines Scrn (>200 NG/ML) < 85 Urine Cocaine Screen (>300 NG/ML) < 50 Urine Cannabis Screen (>50 NG/ML) < 5.00 Urines Urine Color (YEL,AMB,STR) YEL Urine Clarity (CLEAR) CLEAR Urine pH (5.0 - 8.0) 6.5 Ur Specific [place] (1.001 - 1.035) 1.025 Urine Protein (NEG,<30 MG/DL) TRACE H Urine Ketones (NEG) NEG Urine Nitrite (NEG) NEG Urine Bilirubin (NEG) NEG Urine Urobilinogen (0.1 - 1.0 EU/dl) 0.2 Ur Leukocyte Esterase (NEG) NEG Ur Microscopic SEDIMENT EXAMINED Urine RBC (0 - 5 /HPF) RARE Urine WBC (0 - 2 /HPF) RARE Ur Epithelial Cells (NONE,FEW) RARE Urine Bacteria (NEG/NONE) RARE H Urine Mucus (FEW,NONE) RARE Urine Hemoglobin (NEG) NEG Urine Glucose (N MG/DL) NEG 09/16 1849 Chemistry Sodium (137 - 145 mmol/L) 134 L Potassium (3.5 - 5.1 mmol/L) 4.7 Chloride (98 - 107 mmol/L) 92 L Carbon Dioxide (22 - 30 mmol/L) 31 H Anion Gap (5 - 16) 11 BUN (7 - 17 mg/dL) 16 Creatinine (0.5 - 1.0 mg/dL) 0.8 Estimated GFR (>60 ml/min) > 60 BUN/Creatinine Ratio (7 - 25 %) 20.0 Glucose (65 - 99 mg/dL) 192 H Calcium (8.4 - 10.2 mg/dL) 9.3 Total Bilirubin (0.2 - 1.3 mg/dL) 0.3 AST (14 - 36 U/L) 17 ALT (9 - 52 U/L) 21 Alkaline Phosphatase (<127 U/L) 85 Troponin I (< 0.11 ng/ml) < 0.01 Total Protein (6.3 - 8.2 g/dL) 6.8 Albumin (3.5 - 5.0 g/dL) 3.6 Globulin (1.9 - 4.2 gm/dL) 3.2 Albumin/Globulin Ratio (1.1 - 2.2 %) 1.1 Lipase (23 - 300 U/L) 23 Hematology CBC w Diff NO MAN DIFF REQ WBC (4.8 - 10.8 /CUMM) 6.1 RBC (4.20 - 5.40 /CUMM) 4.51 Hgb (12.0 - 16.0 G/DL) 11.9 L Hct (37 - 47 %) 38.0 MCV (81.0 - 99.0 FL) 84.2 MCH (27.0 - 31.0 PG) 26.4 L MCHC (33.0 - 37.0 G/DL) 31.4 L RDW (11.5 - 14.5 %) 19.1 H Plt Count (130 - 400 /CUMM) 383 MPV (7.4 - 10.4 FL) 8.2 Gran % (42.2 - 75.2 %) 69.6 Lymphocytes % (20.5 - 51.1 %) 18.6 L Monocytes % (1.7 - 9.3 %) 10.3 H Eosinophils % (0 - 5 %) 1.0 Basophils % (0.0 - 2.0 %) 0.5 Absolute Granulocytes (1.4 - 6.5 /CUMM) 4.3 Absolute Lymphocytes (1.2 - 3.4 /CUMM) 1.1 L Absolute Monocytes (0.10 - 0.60 /CUMM) 0.6 Absolute Eosinophils (0.0 - 0.7 /CUMM) 0.1 Absolute Basophils (0.0 - 0.2 /CUMM) 0 Toxicology Serum Alcohol (<10 MG/DL) < 10.0 Assessment/Plan Assessment/Plan 51 years old lady with a significant past medical history of insulin dependent DM (on insulin pump), COPD (on night time O2 4 L/Min), ESRD (Rt side renal transplant 10 years ago, on Tacrolimus, mycophenolate, and prednisolone), CVA/ TIA and seizures , gasteroparesis, GERD, and neuropathy, was broght to ER for evaluation of loss of appetite, and nausea. Her BP was found to be 208/92. She was admitted to tele for hypertensive urgency. DM management: 1. due to the hospital policy, insulin pump will be held; 2. adjust Levemir to 10 units twice a day; 3. adjust Novolog coverage before meals and add on another Novolog coverage at bedtime--detail see the inpatient DM orders; 4. monitor FSGs; 5. will review the insulin pump settings with patient. will follow. Inpatient Diabetes Orders Before Each Meal: Bolus Insulin: Novolog < 80 mg/dl: no coverage 80-100 mg/dl: 2 units 101-120 mg/dl: 2 units 121-150 mg/dl: 2 units 151-200 mg/dl: 3 units 201-250 mg/dl: 4 units 251-300 mg/dl: 5 units 301-350 mg/dl: 6 units 351-400 mg/dl: 8 units > 400 mg/dl: 10 units Bedtime: Bolus Insulin: Novolog < 80 mg/dl: No coverage 80-100 mg/dl: no coverage 101-120 mg/dl: no coverage 121-150 mg/dl: no coverage 151-200 mg/dl: no coverage 201-250 mg/dl: no covearge 251-300 mg/dl: 2 units 301-350 mg/dl: 3 units 351-400 mg/dl: 4 units > 400 mg/dl: 5 units Consult Acknowledgment - Thank you for your consult request.
--- NOTE | 2017-09-17 10:45 | Cons- Pulmonary ---
General Information and HPI Consulting Request Date of Consult: 09/17/17 Requested By: Dr. Schumacher Reason for Consult: COPD exacerbation Source of Information: patient, old records Exam Limitations: no limitations History of Present Illness: The patient is a 51-year-old female with a complicated past medical history including emphysema and chronic bronchiectasis following renal transplant in 2007 on chronic nocturnal oxygen at 4 L/min, pseudomonas pneumonia, type 1 diabetes, end-stage renal disease status post right-sided renal transplant 10 years ago on tacrolimus, mycophenolate, and prednisone, CVA/TIA, seizure disorder, gastroparesis, GERD, and neuropathy. The patient was brought to the emergency department for evaluation of loss of appetite in association with nausea. The patient also had multiple issues including diarrhea which resolved, as well as a cough productive of copious amounts of green sputum. She has chronic shortness of breath however this is not significantly changed. In the ED her blood pressure was found to be 208/92. The patient was admitted to telemetry for hypertensive urgency. The patient has continued to require supplemental oxygen at 4 lpm to maintain her saturations in the high 90s. CXR showed a slightly increased infiltrate now with subsegmental atelectasis at RIGHT lower lobe with a small RIGHT pleural effusion. She is on ceftaz and doxycycline for CAP. Urine for S. pneumo and legionella was negative. Blood cultures are negative so far as well. The patient reports less sputum production and less shortness of breath. She has ongoing crackles and intermittent wheezing. Overall she feels improved since admission and denies any new further complaints. Allergies/Medications Allergies: Coded Allergies: erythromycin base (From ERYTHROCIN) (NAUSEA 09/13/17) Home Med List: Alprazolam (Xanax) 0.25 MG TABLET 1 TAB PO BIDP PRN ANXIETTY (Reported) Codeine Sulfate 60 MG TABLET 60 MG PO TID PRN PAIN (Reported) Diphenoxylate HCl/Atropine (Lomotil 2.5-0.025 MG Tablet) 2.5 MG-0.025 MG TABLET 1-2 TAB PO BID PRN DIARRHEA (Reported) Dipyridamole W/ Aspirin (Aggrenox 25 MG-200 MG Capsule) 25 MG-200 MG CPMP.12HR 1 CAP PO BID ANTIPLATELET (Reported) Famotidine 20 MG TABLET 1 TAB PO BID GI (Reported) Furosemide (Lasix) 40 MG TABLET 1 TAB PO DAILY DIURETIC (Reported) Gabapentin (Neurontin) 300 MG CAPSULE 1 CAP PO TID NEUROPATHY (Reported) Lacosamide (Vimpat) 50 MG TABLET 1 TAB PO BID SEIZURES (Reported) Metoclopramide HCl (Reglan) 10 MG TABLET 1 TAB PO 4XDAILY NAUSEA (Reported) 30 minutes before meals and bedtime Mycophenolate Mofetil 250 MG CAPSULE 3 CAP PO BID KIDNEY TRANSPLANT (Reported ) Ondansetron (Zofran Odt) 4 MG TAB.RAPDIS 1 TAB SL TID PRN NAUSEA Pravastatin Sodium (Pravachol) 40 MG TABLET 1 TAB PO QHS HPL (Reported) Prednisone 5 MG TABLET 1 TAB PO DAILY RENAL TRANSPLANT (Reported) Tacrolimus (Prograf) 1 MG CAPSULE 1.5 MG PO BID TRANSPLANT (Reported) Current Medications: Current Medications Sig/Marvin Start time Last Medication Dose Route Stop Time Status Admin Acetaminophen 650 MG Q6P PRN 09/16 221 AC PO Albuterol Sulfate 3 ML ONCE ONE 09/16 184 DC 09/16 INH 09/16 1845 1934 Alprazolam 0 .STK-MED ONE 09/17 0004 DC PO Alprazolam 0.25 MG BID PRN 09/16 2144 AC 09/17 PO 09/24 2143 0005 Ceftazidime 1,000 MG Q12 09/17 09 AC 09/17 IV 0819 Ceftazidime 0 .STK-MED ONE 09/16 2118 DC .ROUTE Ceftazidime 1,000 MG ONCE ONE 09/16 2030 DC 09/16 IV 09/16 Codeine 120 MG Q8 PRN 09/16 214 AC 09/17 PO 0221 Dipyridamole/Aspirin 1 CAP BID 09/16 2300 AC 09/17 PO 0819 Doxycycline Hyclate 100 MG BID 09/17 09 AC 09/17 PO 0819 Doxycycline Hyclate 0 .STK-MED ONE 09/16 2118 DC PO Doxycycline Hyclate 100 MG ONCE ONE 09/16 2030 DC 09/16 PO 09/16 Famotidine 20 MG BID 09/16 2138 AC 09/17 PO 0819 Furosemide 40 MG DAILY 09/17 0900 AC 09/17 PO 0819 Gabapentin 300 MG TID 09/16 2138 AC 09/17 PO 0819 Heparin Sodium 5,000 UNIT Q8 09/17 0600 AC 09/17 (Porcine) SC 0519 Insulin Aspart 0 TIDAC/HS 09/17 0819 AC 09/17 SC 0838 Insulin Aspart 0 TIDAC 09/17 0800 DC SC Insulin Aspart 0 TIDAC 09/17 0800 DC SC Insulin Detemir 10 UNITS BID 09/17 0900 AC 09/17 SC 0837 Insulin Detemir 7 UNITS BID 09/17 0248 DC SC Insulin Human Regular 5 UNITS ONCE ONE 09/17 0315 DC 09/17 SC 09/17 0316 0315 Ipratropium [place] 2.5 ML ONCE ONE 09/16 1845 DC 09/16 INH 09/16 1846 1934 Labetalol HCl 0 .STK-MED ONE 09/16 2101 DC IV Labetalol HCl 10 MG ONCE ONE 09/16 2030 DC 09/16 IV 09/16 2031 2104 Lacosamide 50 MG BID 09/16 2139 AC 09/17 PO 0822 Metoclopramide HCl 10 MG TIDAC 09/17 0800 AC 09/17 PO 0819 Mycophenolate Mofetil 750 MG BID 09/16 2138 AC 09/17 PO 0820 Ondansetron HCl 4 MG Q6P PRN 09/16 2215 AC IV Pravastatin Sodium 40 MG 1700 09/17 1700 AC PO Prednisone 5 MG DAILY 09/17 0900 AC 09/17 PO 0819 Sodium Chloride 1,000 ML BOLUS ONE 09/16 1830 DC 09/16 IV 09/16 1929 1923 Tacrolimus 1.5 MG BID 09/16 2145 AC 09/17 PO 0820 Review of Systems Review of Systems All Other Systems: Reviewed and Negative Past History Travel History Traveled to [place] past 21 day No Medical History Neurological: NEUROPATHY EENT: diabetic retinopathy Cardiovascular: ORTHOSTATIC HYPOTENSION Respiratory: COPD Gastrointestinal: GERD, GASTROPARESIS Hepatic: NONE Renal: KIDNEY TRANSPLANT ACUTE KIDNEY FAILURE Musculoskeletal: OSTEOMYELITIS Psychiatric: NONE Endocrine: diabetes Blood Disorders: NONE Cancer(s): NONE 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 Surgical History Surgical History: renal transplant Family History Relations & Conditions If Any: FATHER Relation not specified for: FH: HTN (hypertension) Psychosocial History Services at Home: None Smoking Status: Never Smoked ETOH Use: denies use Illicit Drug Use: denies illicit drug use Exam & Diagnostic Data Last 24 Hrs of Vital Signs/I&O Vital Signs Date Time Temp Pulse Resp B/P B/P Pulse O2 O2 Flow FiO2 Mean Ox Delivery Rate 09/17 0800 Nasal 4.0L Cannula 09/17 0649 98.7 80 26 148/70 95 09/17 0111 98.9 84 29 160/90 96 Nasal 4.0L Cannula 09/17 0044 Nasal 4.0L Cannula 09/17 0001 99.2 85 20 181/82 97 Nasal 4.0L Cannula 09/16 2146 99.2 83 17 168/96 96 Nasal 2.0L Cannula 09/16 2116 83 09/16 2116 197/94 09/16 2104 93 204/96 09/16 2001 99.2 95 10 208/92 99 Nasal 4.0L Cannula 09/16 1925 Nasal Cannula 09/16 1758 98.6 88 18 184/92 95 Room Air Intake & Output 09/17 1600 09/17 0800 09/17 0000 Intake Total 120 1000 Output Total 200 Balance -80 1000 Intake, IV 1000 Intake, Oral 120 Output, Urine 200 Patient 127 lb 120 lb Weight Weight Bed scale Reported by Patient Measurement Method Physical Exam General Appearance: no apparent distress, alert, awake, comfortable Head: atraumatic, normal appearance Neck: supple Respiratory: bilateral crackles and ronchi Cardiovascular: regular rate/rhythm Gastrointestinal: normal bowel sounds, soft, non-tender Extremities: no edema Skin: intact, normal color, warm/dry Last 48 Hrs of Labs/Shabbir: Laboratory Tests 09/17/17 0635: Anion Gap 7, Estimated GFR > 60, BUN/Creatinine Ratio 22.9, Magnesium 1.7, Troponin I < 0.01, CBC w Diff NO MAN DIFF REQ, RBC 3.83 L, MCV 85.5, MCH 27.3, MCHC 31.9 L, RDW 19.1 H, MPV 8.6, Gran % 66.1, Lymphocytes % 21.0, Monocytes % 11.7 H, Eosinophils % 0.8, Basophils % 0.4, Absolute Granulocytes 4.6, Absolute Lymphocytes 1.5, Absolute Monocytes 0.8 H, Absolute Eosinophils 0.1, Absolute Basophils 0 09/17/17 0100: Troponin I < 0.01 09/16/173: Lactic Acid Cancelled 09/16/174: Urine Opiates Screen > 4000.00 H, Methadone Screen < 40, Barbiturate Screen < 60, Ur Phencyclidine Scrn < 6.00, Amphetamines Screen < 100, U Benzodiazepines Scrn < 85, Urine Cocaine Screen < 50, Urine Cannabis Screen < 5.00, Urine Color YEL, Urine Clarity CLEAR, Urine pH 6.5, Ur Specific [place] 1.025, Urine Protein TRACE H, Urine Ketones NEG, Urine Nitrite NEG, Urine Bilirubin NEG, Urine Urobilinogen 0.2, Ur Leukocyte Esterase NEG, Ur Microscopic SEDIMENT EXAMINED, Urine RBC RARE, Urine WBC RARE, Ur Epithelial Cells RARE, Urine Bacteria RARE H , Urine Mucus RARE, Urine Hemoglobin NEG, Urine Glucose NEG 09/16/172055: Lactic Acid 0.9 09/16/171849: Magnesium 1.7 09/16/171849: Anion Gap 11, Estimated GFR > 60, BUN/Creatinine Ratio 20.0, Glucose 192 H, Calcium 9.3, Total Bilirubin 0.3, AST 17, ALT 21, Alkaline Phosphatase 85, Troponin I < 0.01, Total Protein 6.8, Albumin 3.6, Globulin 3.2, Albumin/ Globulin Ratio 1.1, Lipase 23, CBC w Diff NO MAN DIFF REQ, RBC 4.51, MCV 84.2, MCH 26.4 L, MCHC 31.4 L, RDW 19.1 H, MPV 8.2, Gran % 69.6, Lymphocytes % 18.6 L, Monocytes % 10.3 H, Eosinophils % 1.0, Basophils % 0.5, Absolute Granulocytes 4.3, Absolute Lymphocytes 1.1 L, Absolute Monocytes 0.6, Absolute Eosinophils 0.1, Absolute Basophils 0, Serum Alcohol < 10.0 Microbiology 09/16 2113 URINE ROUT: Legionella Antigen - COMP 09/16 2113 URINE ROUT: Streptococcus pneumoniae Antigen (M - COMP Assessment/Plan Impression/Plan: 1. Nausea, vomiting and diarrhea, C. difficile negative, improved. 2. Right-sided infiltrate versus pleural effusion, rule out pneumonia. The patient is on ceftazidime and doxycycline due to multiple antibiotic allergies. She is negative for Legionella and strep pneumo at present. 3. History of chronic bronchiectasis post renal transplant, noted since 2007. 4. History of severe COPD. 5. Chronic hypoxemic respiratory failure secondary to COPD and bronchiectasis. 6. History of renal transplant in 2007, on immunosuppressive therapy. 7. History of stroke and TIA. 8. Seizure disorder. 9. Insulin dependent diabetes. 10. Chronic pain, on opiates. Recommendations: * Continue ceftazidime and doxycycline. * Consider ID input. * Continue nebs/total respiratory care. * Taper oxygen down for saturations greater than 92%. * Check a noncontrast CT scan of the chest to rule out pneumonia, increasing effusion, etc. * Send sputum for culture if able. * Continue patient's home medication regimen. * Continue all supportive care. * Thank you for the consult. Will follow along with you and provide further recommendations as necessary. If there are any comments or questions, please do not hesitate to contact me at any time. Consult Acknowledgment - Thank you for your consult request.
--- NOTE | 2017-09-17 12:34 | Cons- Nephrology ---
General Information and HPI Consulting Request Date of Consult: 09/17/17 Requested By: Winsome VILLA,Kranthi History of Present Illness: Ms. Mccann is a pleasant 51 yo F with longstanding HTN/DM, ESRD due to DM/HTN s/p LRT in 2007. She has done well with the transplant with creatinines in the low 1's (most recent 1.2 in February). She has COPD and bronchietasis and came to the hospital yesterday with weakness, fatigue. She was diagnosed with COPD exacerbation ? pneumonia and started on ceftazidime and doxycycline. BP was markedly elevated on presentation but is back to normal now on meds. Cr was 0.9 and is now 0.7. Pt says she is compliant with her transplant medication. Allergies/Medications Allergies: Coded Allergies: erythromycin base (From ERYTHROCIN) (NAUSEA 09/13/17) Home Med List: Alprazolam (Xanax) 0.25 MG TABLET 1 TAB PO BIDP PRN ANXIETTY (Reported) Codeine Sulfate 60 MG TABLET 60 MG PO TID PRN PAIN (Reported) Diphenoxylate HCl/Atropine (Lomotil 2.5-0.025 MG Tablet) 2.5 MG-0.025 MG TABLET 1-2 TAB PO BID PRN DIARRHEA (Reported) Dipyridamole W/ Aspirin (Aggrenox 25 MG-200 MG Capsule) 25 MG-200 MG CPMP.12HR 1 CAP PO BID ANTIPLATELET (Reported) Famotidine 20 MG TABLET 1 TAB PO BID GI (Reported) Furosemide (Lasix) 40 MG TABLET 1 TAB PO DAILY DIURETIC (Reported) Gabapentin (Neurontin) 300 MG CAPSULE 1 CAP PO TID NEUROPATHY (Reported) Lacosamide (Vimpat) 50 MG TABLET 1 TAB PO BID SEIZURES (Reported) Metoclopramide HCl (Reglan) 10 MG TABLET 1 TAB PO 4XDAILY NAUSEA (Reported) 30 minutes before meals and bedtime Mycophenolate Mofetil 250 MG CAPSULE 3 CAP PO BID KIDNEY TRANSPLANT (Reported ) Ondansetron (Zofran Odt) 4 MG TAB.RAPDIS 1 TAB SL TID PRN NAUSEA Pravastatin Sodium (Pravachol) 40 MG TABLET 1 TAB PO QHS HPL (Reported) Prednisone 5 MG TABLET 1 TAB PO DAILY RENAL TRANSPLANT (Reported) Tacrolimus (Prograf) 1 MG CAPSULE 1.5 MG PO BID TRANSPLANT (Reported) Current Medications: Current Medications Sig/Marvin Start time Last Medication Dose Route Stop Time Status Admin Acetaminophen 650 MG Q6P PRN 09/16 2215 AC PO Albuterol Sulfate 3 ML ONCE ONE 09/16 1845 DC 09/16 INH 09/16 1845 193 Alprazolam 0 .STK-MED ONE 09/17 0004 DC PO Alprazolam 0.25 MG BID PRN 09/16 2145 AC 09/17 PO 09/23 2144 0005 Ceftazidime 1,000 MG Q12 09/17 0900 AC 09/17 IV 0819 Ceftazidime 0 .STK-MED ONE 09/16 2118 DC .ROUTE Ceftazidime 1,000 MG ONCE ONE 09/16 2030 DC 09/16 IV 09/16 Codeine 120 MG Q8 PRN 09/16 214 AC 09/17 PO 0221 Dipyridamole/Aspirin 1 CAP BID 09/16 2300 AC 09/17 PO 0819 Doxycycline Hyclate 100 MG BID 09/17 0900 AC 09/17 PO 0819 Doxycycline Hyclate 0 .STK-MED ONE 09/16 2118 DC PO Doxycycline Hyclate 100 MG ONCE ONE 09/16 2030 DC 09/16 PO 09/16 Famotidine 20 MG BID 09/16 2138 AC 09/17 PO 0819 Furosemide 40 MG DAILY 09/17 0900 AC 09/17 PO 0819 Gabapentin 300 MG TID 09/16 2138 AC 09/17 PO 0819 Heparin Sodium 5,000 UNIT Q8 09/17 0600 AC 09/17 (Porcine) SC 0519 Insulin Aspart 0 TIDAC/HS 09/17 0819 AC 09/17 KS 1146 Insulin Aspart 0 TIDAC 09/17 0800 DC SC Insulin Aspart 0 TIDAC 09/17 0800 DC SC Insulin Detemir 10 UNITS BID 09/17 0900 AC 09/17 SC 0837 Insulin Detemir 7 UNITS BID 09/17 0248 DC SC Insulin Human Regular 5 UNITS ONCE ONE 09/17 0315 DC 09/17 SC 09/17 0316 0315 Ipratropium [place] 2.5 ML ONCE ONE 09/16 1845 DC 09/16 INH 09/16 1845 193 Labetalol HCl 0 .STK-MED ONE 07/22 2101 DC IV Labetalol HCl 10 MG ONCE ONE 09/16 2030 DC 09/16 IV 09/16 2030 210 Lacosamide 50 MG BID 09/16 213 AC 09/17 PO 0822 Metoclopramide HCl 10 MG TIDAC 09/17 0800 AC 09/17 PO 1147 Mycophenolate Mofetil 750 MG BID 09/16 2137 AC 09/17 PO 0820 Ondansetron HCl 4 MG Q6P PRN 09/16 2215 AC IV Pravastatin Sodium 40 MG 1700 09/17 1700 AC PO Prednisone 5 MG DAILY 09/17 0900 AC 09/17 PO 0819 Sodium Chloride 1,000 ML BOLUS ONE 09/16 1830 DC 09/16 IV 09/16 192 192 Tacrolimus 1.5 MG BID 09/16 2144 AC 09/17 PO 0820 Review of Systems Review of Systems: As in HPI Weakness fatigue Chronic respiratory (Uses O2 at home) cough no CP other systems negative Past History Travel History Traveled to [place] past 21 day No Medical History Neurological: NEUROPATHY EENT: diabetic retinopathy Cardiovascular: ORTHOSTATIC HYPOTENSION Respiratory: COPD Gastrointestinal: GERD, GASTROPARESIS Hepatic: NONE Renal: KIDNEY TRANSPLANT ACUTE KIDNEY FAILURE Musculoskeletal: OSTEOMYELITIS Psychiatric: NONE Endocrine: diabetes Blood Disorders: NONE Cancer(s): NONE 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 Surgical History Surgical History: renal transplant Family History Relations & Conditions If Any: FATHER Relation not specified for: FH: HTN (hypertension) Psychosocial History Services at Home: None Smoking Status: Never Smoked ETOH Use: denies use Illicit Drug Use: denies illicit drug use Exam & Diagnostic Data Vital Signs and I&O Vital Signs Pleasant F Comfortable NAD 148/70 80 98.7 (4LO2) Skin neg rash Eyes anicteric ENT moist Lungs rhonchi bilaterally (patient says this is chronic) Cor RRR Abd soft N/T Kidney RLQ nontender Ext neg edema Results Pertinent Lab Results: 133 / 96 / 16 / 4.4 / 30 / 0.7\ Hg 10.4 WBC6.9 CXR RLL infiltrate Assessment/Plan Assessment/Recommendations Assessment: Pt s/p renal transplant 10 yrs ago with stable renal function . She is doing well from this standpoint on tacrolimus, mycophenolate,prednisone. These should be continued at outpatient doses. The antibiotics (ceftazadime, doxycycline) are okay to use with transplant. Need to avoid the macrolides (erythomycin, clarithramycin, azithramycin) as these interfere with tacrolimus metabolism and results in markedly higher levels. She feels better. I will follow with you Thanks Ashok Grider MD Recommendations: .
[2017-09-17 14:32] VITALS: BP 112/58
--- NOTE | 2017-09-17 14:45 | CT SCAN REPORT ---
EXAMINATION: CT CHEST WITHOUT CONTRAST CLINICAL INFORMATION: Cough, fever and chills. COMPARISON: Chest CT from 05/26/2014. CXR from 12/04/2016, 06/27/2017 and 09/16/2017. TECHNIQUE: Multidetector volumetric CT imaging of the chest was done. Axial MIP volume rendering provided. Sagittal and coronal reformatted images were obtained. DLP: 172 mGy-cm FINDINGS: LUNGS AND PLEURA: Chronic bronchial wall thickening in both lungs. Compared to 07/26/2014, new tree-in-bud nodular opacities are present in the right upper lobe, right middle lobe and lingula. Also, there are some scattered groundglass opacities in both upper lobes, consistent with pneumonia. Persistent (or recurrent) tree-in-bud nodularity is seen in both lower lobes. Chronic cylindrical bronchiectasis in lower lobes. Peribronchial consolidation in both lower lobes, consistent with bronchopneumonia. Compressive atelectasis and/or consolidation in the medial segment of the right middle lobe. Subsegmental atelectasis is present in the inferior lingula. No pleural effusion or pneumothorax. MEDIASTINUM: Cardiac chambers, thoracic aorta and pulmonary arteries are normal in caliber. Moderate atherosclerotic calcification of coronary arteries. Small pericardial effusion. There is gaseous distention of the esophagus -- also present on the exam from 07/26/2014. Thyroid gland is grossly unremarkable. LYMPHATICS: No axillary or internal mammary lymphadenopathy. No bulky hilar lymphadenopathy. Precarinal and subcarinal lymph nodes measure approximately 1.1 cm AP dimension and have increased in size compared to 07/26/2014. UPPER ABDOMEN: The chronically atrophied kidneys are partially included in the [id number]. SKELETAL AND CHEST WALL: Multilevel discovertebral degenerative change of thoracic spine. No aggressive osseous lesions. IMPRESSION: 1. Overall, compared to 07/26/2014, there is worsening tree-in-bud nodularity in both lungs, consistent with infectious bronchiolitis. Also, there is peribronchial consolidation (i.e., bronchopneumonia) in both lower lobes, right worse than left. No pleural effusion. 2. Mild lymphadenopathy within the mediastinum.
--- NOTE | 2017-09-17 16:55 | Cons- Infect Disease ---
General Information and HPI Consulting Request Date of Consult: 09/17/17 Requested By: Winsome VILLA,Kranthi Reason for Consult: Rule out pneumonia Source of Information: patient, family, old records History of Present Illness: This is a 51-year-old woman with a history of hypertension, diabetes, end-stage renal disease, status post renal transplant 9 years prior to admission, maintained on Tacrolimus, CellCept and 5 mg of prednisone daily, retinopathy, status post right eye prosthesis, gastroparesis, peripheral vascular disease and neuropathy, status post amputation of the right fourth toe, bronchiectasis, maintained on 4 L of nocturnal oxygen, status post TIA/CVA and seizure disorder, with her last seizure 6 days prior to admission, seen in the emergency room 3 days prior to admission with nausea, vomiting and diarrhea, found to be afebrile with a white blood cell count of 11,000, discharged on Zofran without improvement in her nausea, but with resolution of her diarrhea with Imodium, admitted on September 16 after returning to the emergency room with persistent nausea and weakness, one episode of a productive cough and the more acute onset of altered mental status, hypertension and hypoxia according to her . On admission she was afebrile. Laboratory data revealed a white blood cell count of 6000, BUN/creatinine 16 and 0.8, with normal liver enzymes. Urinalysis rare RBC/rare WBCs. Chest x-ray revealed a right lower lobe density with a small right pleural effusion. She was begun on Ceftazidime and Doxycycline and has remained afebrile overnight. She notes improvement in her nausea and has had no diarrhea. She does not report any cough, shortness of breath or chest pain at this time. Allergies/Medications Allergies: Coded Allergies: erythromycin base (From ERYTHROCIN) (NAUSEA 09/13/17) Home Med List: Alprazolam (Xanax) 0.25 MG TABLET 1 TAB PO BIDP PRN ANXIETTY (Reported) Codeine Sulfate 60 MG TABLET 60 MG PO TID PRN PAIN (Reported) Diphenoxylate HCl/Atropine (Lomotil 2.5-0.025 MG Tablet) 2.5 MG-0.025 MG TABLET 1-2 TAB PO BID PRN DIARRHEA (Reported) Dipyridamole W/ Aspirin (Aggrenox 25 MG-200 MG Capsule) 25 MG-200 MG CPMP.12HR 1 CAP PO BID ANTIPLATELET (Reported) Famotidine 20 MG TABLET 1 TAB PO BID GI (Reported) Furosemide (Lasix) 40 MG TABLET 1 TAB PO DAILY DIURETIC (Reported) Gabapentin (Neurontin) 300 MG CAPSULE 1 CAP PO TID NEUROPATHY (Reported) Lacosamide (Vimpat) 50 MG TABLET 1 TAB PO BID SEIZURES (Reported) Metoclopramide HCl (Reglan) 10 MG TABLET 1 TAB PO 4XDAILY NAUSEA (Reported) 30 minutes before meals and bedtime Mycophenolate Mofetil 250 MG CAPSULE 3 CAP PO BID KIDNEY TRANSPLANT (Reported ) Ondansetron (Zofran Odt) 4 MG TAB.RAPDIS 1 TAB SL TID PRN NAUSEA Pravastatin Sodium (Pravachol) 40 MG TABLET 1 TAB PO QHS HPL (Reported) Prednisone 5 MG TABLET 1 TAB PO DAILY RENAL TRANSPLANT (Reported) Tacrolimus (Prograf) 1 MG CAPSULE 1.5 MG PO BID TRANSPLANT (Reported) Past History Travel History Traveled to [place] past 21 day No Medical History Neurological: CVA, TIA, NEUROPATHY EENT: diabetic retinopathy Cardiovascular: hypertension, PVD, ORTHOSTATIC HYPOTENSION Respiratory: COPD, bronchiectasis Gastrointestinal: GERD, GASTROPARESIS Hepatic: NONE Renal: KIDNEY TRANSPLANT Musculoskeletal: OSTEOMYELITIS Psychiatric: NONE Endocrine: diabetes Blood Disorders: NONE Cancer(s): NONE 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 History of MRSA: No History of VRE: No History of CDIFF: No Isolation History: Standard Surgical History Surgical History: renal transplant, s/p amputation of the right 4th toe, s/p right eye prosthesis Family History Relations & Conditions If Any: FATHER Relation not specified for: FH: HTN (hypertension) Psychosocial History Services at Home: None Smoking Status: Never Smoked ETOH Use: denies use Illicit Drug Use: denies illicit drug use Review of Systems Review of Systems All Other Systems: Reviewed and Negative Exam & Diagnostic Data Last 24 Hrs of Vital Signs/I&O Vital Signs Date Time Temp Pulse Resp B/P B/P Pulse O2 O2 Flow FiO2 Mean Ox Delivery Rate 09/17 1432 98.3 79 24 112/58 96 Room Air 09/17 0800 Nasal 4.0L Cannula 09/17 0649 98.7 80 26 148/70 95 09/17 0111 98.9 84 29 160/90 96 Nasal 4.0L Cannula 09/17 0044 Nasal 4.0L Cannula 09/17 0001 99.2 85 20 181/82 97 Nasal 4.0L Cannula 09/16 2145 99.2 83 17 168/96 96 Nasal 2.0L Cannula 09/166 83 09/17 2115 197/94 09/16 2104 93 204/96 09/16 2001 99.2 95 10 208/92 99 Nasal 4.0L Cannula 09/16 1925 Nasal Cannula 09/16 1758 98.6 88 18 184/92 95 Room Air Intake & Output 09/17 1600 09/17 0800 09/17 0000 Intake Total 292 232 1887 Output Total 1400 200 Balance -1100 -80 1000 Intake, IV 1000 Intake, Oral 300 120 Output, Urine 1400 200 Patient 127 lb 120 lb Weight Weight Bed scale Reported by Patient Measurement Method Physical Exam Other Physical Findings: She is awake and alert in no acute distress, on 3 L of oxygen. She is afebrile. Skin reveals no rash. HEENT exam status post right eye prosthesis. Neck is supple with no adenopathy. Lungs diffuse rhonchi bilaterally. Heart regular rhythm with no murmur. Abdomen is soft, nontender with positive bowel sounds; renal transplant in the right lower quadrant with no surrounding inflammation. Back no CVA tenderness. Extremities status post right fourth toe amputation; right third toe ulcer over the dorsal aspect, with swelling of the toe, with no erythema, drainage or tenderness; pulses 1+ and equal; no cyanosis, clubbing or edema of the lower extremities. Neuro is without focality. Last 24 Hours of Lab Results: Laboratory Tests 09/17 09/17 09/16 0635 0100 2323 Chemistry Sodium (137 - 145 mmol/L) 133 L Potassium (3.5 - 5.1 mmol/L) 4.4 Chloride (98 - 107 mmol/L) 96 L Carbon Dioxide (22 - 30 mmol/L) 30 Anion Gap (5 - 16) 7 BUN (7 - 17 mg/dL) 16 Creatinine (0.5 - 1.0 mg/dL) 0.7 Estimated GFR (>60 ml/min) > 60 BUN/Creatinine Ratio (7 - 25 %) 22.9 Lactic Acid Cancelled Magnesium (1.6 - 2.3 mg/dL) 1.7 Troponin I (< 0.11 ng/ml) < 0.01 < 0.01 Hematology CBC w Diff NO MAN DIFF REQ WBC (4.8 - 10.8 /CUMM) 6.9 RBC (4.20 - 5.40 /CUMM) 3.83 L Hgb (12.0 - 16.0 G/DL) 10.4 L Hct (37 - 47 %) 32.7 L MCV (81.0 - 99.0 FL) 85.5 MCH (27.0 - 31.0 PG) 27.3 MCHC (33.0 - 37.0 G/DL) 31.9 L RDW (11.5 - 14.5 %) 19.1 H Plt Count (130 - 400 /CUMM) 332 MPV (7.4 - 10.4 FL) 8.6 Gran % (42.2 - 75.2 %) 66.1 Lymphocytes % (20.5 - 51.1 %) 21.0 Monocytes % (1.7 - 9.3 %) 11.7 H Eosinophils % (0 - 5 %) 0.8 Basophils % (0.0 - 2.0 %) 0.4 Absolute Granulocytes (1.4 - 6.5 /CUMM) 4.6 Absolute Lymphocytes (1.2 - 3.4 /CUMM) 1.5 Absolute Monocytes (0.10 - 0.60 /CUMM) 0.8 H Absolute Eosinophils (0.0 - 0.7 /CUMM) 0.1 Absolute Basophils (0.0 - 0.2 /CUMM) 0 09/16 1850 Chemistry Lactic Acid (0.7 - 2.1 mmol/L) 0.9 Magnesium (1.6 - 2.3 mg/dL) 1.7 Toxicology Urine Opiates Screen (>2000 NG/ML) > 4000.00 H Methadone Screen (>300 NG/ML) < 40 Barbiturate Screen (>200 NG/ML) < 60 Ur Phencyclidine Scrn (>25 NG/ML) < 6.00 Amphetamines Screen (>1000 NG/ML) < 100 U Benzodiazepines Scrn (>200 NG/ML) < 85 Urine Cocaine Screen (>300 NG/ML) < 50 Urine Cannabis Screen (>50 NG/ML) < 5.00 Urines Urine Color (YEL,AMB,STR) YEL Urine Clarity (CLEAR) CLEAR Urine pH (5.0 - 8.0) 6.5 Ur Specific Epes (1.001 - 1.035) 1.025 Urine Protein (NEG,<30 MG/DL) TRACE H Urine Ketones (NEG) NEG Urine Nitrite (NEG) NEG Urine Bilirubin (NEG) NEG Urine Urobilinogen (0.1 - 1.0 EU/dl) 0.2 Ur Leukocyte Esterase (NEG) NEG Ur Microscopic SEDIMENT EXAMINED Urine RBC (0 - 5 /HPF) RARE Urine WBC (0 - 2 /HPF) RARE Ur Epithelial Cells (NONE,FEW) RARE Urine Bacteria (NEG/NONE) RARE H Urine Mucus (FEW,NONE) RARE Urine Hemoglobin (NEG) NEG Urine Glucose (N MG/DL) NEG 09/16 1850 Chemistry Sodium (137 - 145 mmol/L) 134 L Potassium (3.5 - 5.1 mmol/L) 4.7 Chloride (98 - 107 mmol/L) 92 L Carbon Dioxide (22 - 30 mmol/L) 31 H Anion Gap (5 - 16) 11 BUN (7 - 17 mg/dL) 16 Creatinine (0.5 - 1.0 mg/dL) 0.8 Estimated GFR (>60 ml/min) > 60 BUN/Creatinine Ratio (7 - 25 %) 20.0 Glucose (65 - 99 mg/dL) 192 H Calcium (8.4 - 10.2 mg/dL) 9.3 Total Bilirubin (0.2 - 1.3 mg/dL) 0.3 AST (14 - 36 U/L) 17 ALT (9 - 52 U/L) 21 Alkaline Phosphatase (<127 U/L) 85 Troponin I (< 0.11 ng/ml) < 0.01 Total Protein (6.3 - 8.2 g/dL) 6.8 Albumin (3.5 - 5.0 g/dL) 3.6 Globulin (1.9 - 4.2 gm/dL) 3.2 Albumin/Globulin Ratio (1.1 - 2.2 %) 1.1 Lipase (23 - 300 U/L) 23 Hematology CBC w Diff NO MAN DIFF REQ WBC (4.8 - 10.8 /CUMM) 6.1 RBC (4.20 - 5.40 /CUMM) 4.51 Hgb (12.0 - 16.0 G/DL) 11.9 L Hct (37 - 47 %) 38.0 MCV (81.0 - 99.0 FL) 84.2 MCH (27.0 - 31.0 PG) 26.4 L MCHC (33.0 - 37.0 G/DL) 31.4 L RDW (11.5 - 14.5 %) 19.1 H Plt Count (130 - 400 /CUMM) 383 MPV (7.4 - 10.4 FL) 8.2 Gran % (42.2 - 75.2 %) 69.6 Lymphocytes % (20.5 - 51.1 %) 18.6 L Monocytes % (1.7 - 9.3 %) 10.3 H Eosinophils % (0 - 5 %) 1.0 Basophils % (0.0 - 2.0 %) 0.5 Absolute Granulocytes (1.4 - 6.5 /CUMM) 4.3 Absolute Lymphocytes (1.2 - 3.4 /CUMM) 1.1 L Absolute Monocytes (0.10 - 0.60 /CUMM) 0.6 Absolute Eosinophils (0.0 - 0.7 /CUMM) 0.1 Absolute Basophils (0.0 - 0.2 /CUMM) 0 Toxicology Serum Alcohol (<10 MG/DL) < 10.0 Last 24 Hours of Shabbir Results: Blood cultures x 2 September 16 negative Urine strep pneumo antigen and Legionella antigen September 16 negative Diagnostic Data Recent Imaging Findings: Chest x-ray September 16 reveals a right lower lobe infiltrate with subsegmental atelectasis and a right pleural effusion CT of the chest September 17 reveals increased tree-in-bud nodularity in both lungs compared to the previous CT scan and consistent with infectious bronchiolitis; peribronchial consolidation/bronchopneumonia in both lower lobes, right worse than left, with no pleural effusion Assessment/Plan Assessment/Plan Impression: This is a 51-year-old woman with a history of diabetes, end-stage renal disease, status post renal transplant 9 years prior to admission, maintained on Tacrolimus, CellCept and 5 mg of prednisone daily, gastroparesis and bronchiectasis, maintained on 4 L of nocturnal oxygen, admitted on September 16 with several days of nausea and weakness, one episode of a productive cough and the more acute onset of altered mental status, hypertension and hypoxia, found to be afebrile with a normal white blood cell count and with a CT of the chest revealing worsening tree-in-bud opacities in both lungs and bibasilar peribronchial consolidation. Her clinical picture is suggestive of possible pneumonia. She has no fever or leukocytosis, which could be secondary to her immunosuppressed state, though she was able to mount a fever and leukocytosis on both of her previous episodes of pneumonia, but, given her reported cough and hypoxia prior to admission and her diffuse rhonchi on exam, feel that empiric treatment for pneumonia is reasonable , particularly given her immunocompromised state. Given her gastroparesis and recent vomiting, aspiration must be considered as a possible explanation for her pneumonia. Her antibiotics, however, should be able to be adjusted, but they will need to remain empiric as she has no significant cough at this time. Her GI symptoms are likely secondary to gastroparesis and appear to have, for the most part, resolved. Her right third toe ulcer has been present for several weeks and further evaluation, for example to rule out underlying osteomyelitis, should be considered. Suggestion: 1. Attempt to obtain a sputum culture 2. X-ray of the right foot 3. Discontinue Ceftazidime 4. Begin Unasyn 1.5 g IV every 6 hours 5. Continue Doxycycline Consult Acknowledgment - Thank you for your consult request.
--- NOTE | 2017-09-17 19:35 | Cons- Cardiology ---
General Information and HPI Consulting Request Date of Consult: 09/17/17 Requested By: Winsome VILLA,Kranthi History of Present Illness: Ms. Mccann is a 51 year old female with history of hypertension, dyslipidemia, diabetes and peripheral vascular disease. She also carries a history of COPD and end stage renal disease status post transplant on immunosuppressive medications. A few days ago this patient noted a watery diarrhea that resolved with Immodium but was followed by nausea and vomiting. Her breathing subsequently became worse and was accompanied by a productive cough. She was brought to the ER with decreased mental status and does not have a good recollection of events on the day she was admitted. Over the past few days this patient has had a cough and some nausea. It should be noted that she had a seizure about six days ago. Ariella denies chest pain, pressure, tightness, any current shortness of breath or palpitations but does have some lightheadedness. Workup included a chest X-ray showing a right lower lobe density with small right pleural effusion but normal white blood cell count. Finally, it should be noted that this patient was very hypertensive upon intial presentation. To review this patients prior history, back in November Ariella was noted by her to be unresponsive and diaphoretic and she was given glucose by him. Her blood glucose was elevated upon presentation to the ER. The patient is noted on her ECG to have ischemic anterolateral ST depressions. Allergies/Medications Allergies: Coded Allergies: erythromycin base (From ERYTHROCIN) (NAUSEA 09/13/17) Home Med List: Alprazolam (Xanax) 0.25 MG TABLET 1 TAB PO BIDP PRN ANXIETTY (Reported) Codeine Sulfate 60 MG TABLET 60 MG PO TID PRN PAIN (Reported) Diphenoxylate HCl/Atropine (Lomotil 2.5-0.025 MG Tablet) 2.5 MG-0.025 MG TABLET 1-2 TAB PO BID PRN DIARRHEA (Reported) Dipyridamole W/ Aspirin (Aggrenox 25 MG-200 MG Capsule) 25 MG-200 MG CPMP.12HR 1 CAP PO BID ANTIPLATELET (Reported) Famotidine 20 MG TABLET 1 TAB PO BID GI (Reported) Furosemide (Lasix) 40 MG TABLET 1 TAB PO DAILY DIURETIC (Reported) Gabapentin (Neurontin) 300 MG CAPSULE 1 CAP PO TID NEUROPATHY (Reported) Lacosamide (Vimpat) 50 MG TABLET 1 TAB PO BID SEIZURES (Reported) Metoclopramide HCl (Reglan) 10 MG TABLET 1 TAB PO 4XDAILY NAUSEA (Reported) 30 minutes before meals and bedtime Mycophenolate Mofetil 250 MG CAPSULE 3 CAP PO BID KIDNEY TRANSPLANT (Reported ) Ondansetron (Zofran Odt) 4 MG TAB.RAPDIS 1 TAB SL TID PRN NAUSEA Pravastatin Sodium (Pravachol) 40 MG TABLET 1 TAB PO QHS HPL (Reported) Prednisone 5 MG TABLET 1 TAB PO DAILY RENAL TRANSPLANT (Reported) Tacrolimus (Prograf) 1 MG CAPSULE 1.5 MG PO BID TRANSPLANT (Reported) Review of Systems Review of Systems: upper airway congestion Past History Travel History Traveled to [place] past 21 day No Medical History Neurological: CVA, TIA, NEUROPATHY EENT: diabetic retinopathy Cardiovascular: hypertension, PVD, ORTHOSTATIC HYPOTENSION Respiratory: COPD, bronchiectasis Gastrointestinal: GERD, GASTROPARESIS Hepatic: NONE Renal: KIDNEY TRANSPLANT Musculoskeletal: OSTEOMYELITIS Psychiatric: NONE Endocrine: diabetes Blood Disorders: NONE Cancer(s): NONE 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 Surgical History Surgical History: renal transplant s/p amputation of the right 4th toe s/p right eye prosthesis Family History Relations & Conditions If Any: FATHER Relation not specified for: FH: HTN (hypertension) Psychosocial History Services at Home: None Smoking Status: Never Smoked ETOH Use: denies use Illicit Drug Use: denies illicit drug use Exam & Diagnostic Data Vital Signs and I&O Vital Signs Date Time Temp Pulse Resp B/P B/P Pulse O2 O2 Flow FiO2 Mean Ox Delivery Rate 09/17 1731 83 162/100 09/17 1600 Nasal 3.0L Cannula 09/17 1432 98.3 79 24 112/58 96 Room Air 09/17 0800 Nasal 4.0L Cannula 09/17 0649 98.7 80 26 148/70 95 09/17 0111 98.9 84 29 160/90 96 Nasal 4.0L Cannula 09/17 0044 Nasal 4.0L Cannula 09/17 0001 99.2 85 20 181/82 97 Nasal 4.0L Cannula 09/16 2145 99.2 83 17 168/96 96 Nasal 2.0L Cannula 09/166 83 09/16 2116 197/94 09/16 2104 93 204/96 09/16 2001 99.2 95 10 208/92 99 Nasal 4.0L Cannula 09/16 1924 Nasal Cannula Intake & Output 09/17 1600 09/17 0800 09/17 0000 09/16 1600 09/16 0800 09/16 0000 Intake Total 578 015 3771 Output Total 1400 200 Balance -1100 -80 1000 Intake, IV 1000 Intake, Oral 300 120 Output, Urine 1400 200 Patient 127 lb 120 lb Weight Weight Bed scale Reported by Patient Measurement Method Physical Exam: General: WD/WN female in NAD; alert and oriented x 3 HEENT: NC/AT, Left eye reactive to light with EOMI Neck: no JVD, no carotid bruit Heart: RRR with 2/6 systolic murmur at the LLSB and RUSB Lungs: course crackles bilaterally with upper airway sounds and wheezing Abdomen: soft, NT, +ve bowel sounds Ext: no edema, right toe amp Assessment/Plan Assessment/Plan * Hypertension. This patient was very hypertensive upon initial presentation to the ER. This is possibly due to decreased intake of her medications while experiencing a decreased responsiveness as well as to difficulty keeping her medications down in the setting of vomiting. She likely also had an increase in stress hormones due to her acute illness. Her blood pressure has improved although it is not in the ideal range. In consideration of her small pleural effusion I would restart her diuretic. Her renal function is normal Begin Lasix at 20mg daily. Increase Lisinopril to a more effective dose of 10mg daily with monitoring of her BUN and creatinine. * This patient appears to have a primary pulmonary problem without evidence of myocardial ischemia or decompensated CHF. She does have a couple prominent cardiac murmurs however. I would repeat an echocardiogram at this time. Consult Acknowledgment - Thank you for your consult request.
[2017-09-17 22:08] VITALS: BP 146/82
[2017-09-18 06:33] VITALS: BP 94/52
--- NOTE | 2017-09-18 07:26 | PN- Housestaff ---
Subjective Follow-up For: Hypertensive urgency Pneumonia (possible) Renal transplant on immunosuppressants IDDM COPD History of CVA/TIA and seizures Tele-Events Since Last Visit: Patient in normal sinus rhythm overnight, rates from 65-70 Subjective: Patient seen resting comfortably in the bed. Overnight the patient had an episode of hypoglycemia early in the morning, as she does not have an evening snack and her insulin was recently adjusted to replace her insulin pump while she is an inpatient. She states that she is still feeling a little "out of it" from that episode, and currently is complaining of a headache. She reports that her shortness of breath is improving, denies fever, but still c/o cough, which is productive of sputum. Review of Systems Constitutional: Denies: chills, malaise, weakness. Cardiovascular: Denies: chest pain, orthopena, palpitations. Respiratory: Reports: sputum production, wheezing. Denies: cough, short of breath. Gastrointestinal: Denies: abdominal pain, nausea, vomiting. Objective Last 24 Hrs of Vital Signs/I&O Vital Signs Date Time Temp Pulse Resp B/P B/P Pulse O2 O2 Flow FiO2 Mean Ox Delivery Rate 09/18 0633 98.1 78 22 94/52 94 Nasal Cannula 09/17 2208 98.4 78 20 146/82 93 Nasal Cannula 09/17 2158 Nasal 3.0L Cannula 09/17 1731 83 162/100 09/17 1600 Nasal 3.0L Cannula 09/17 1432 98.3 79 24 112/58 96 Room Air 09/17 0800 Nasal 4.0L Cannula Intake & Output 09/18 0800 09/18 0000 09/17 1600 Intake Total 470 210 300 Output Total 500 1400 Balance -30 210 -1100 Intake, IV 110 110 Intake, Oral 360 100 300 Number 2 Bowel Movements Output, Urine 500 1400 Patient 57.606 kg Weight Weight Bed scale Measurement Method Physical Exam General Appearance: Alert, Oriented X3, Cooperative, No Acute Distress HEENT: Atraumatic, Mucous Membr. moist/pink Neck: Supple, No JVD Cardiovascular: Regular Rate, Normal S1, Normal S2 Lungs: Diffuse rales with deep ronchi bilaterally Current Medications: Current Medications Sig/Marvin Start time Last Medication Dose Route Stop Time Status Admin Acetaminophen 650 MG .STK-MED ONE 09/17 171 DC PO 09/17 171 Acetaminophen 650 MG Q6P PRN 09/16 2214 AC 09/17 PO 1717 Alprazolam 0.25 MG BID PRN 09/16 2145 AC 09/17 PO 09/23 2144 1717 Amlodipine Besylate 2.5 MG ONCE ONE 09/18 1999 DC 09/17 PO 09/17 Amlodipine Besylate 2.5 MG ONCE ONE 09/17 1730 DC 09/17 PO 09/17 1731 1731 Ampicillin Sodium/ 1,500 MG Q6H 09/18 1999 AC 09/18 Sulbactam Sodium IV 0110 Sodium Chloride 100 ML Ceftazidime 1,000 MG Q12 09/17 0900 DC 09/17 IV 0819 Codeine 120 MG Q8 PRN 09/16 2145 AC 09/17 PO 1854 Dipyridamole/Aspirin 1 CAP BID 09/16 2300 AC 09/17 PO 2129 Doxycycline Hyclate 100 MG BID 09/17 2100 AC 09/17 PO 2129 Doxycycline Hyclate 100 MG BID 09/17 0900 DC 09/17 PO 0819 Famotidine 20 MG BID 09/16 213 AC 09/17 PO 2129 Furosemide 20 MG DAILY 09/18 0900 AC PO Furosemide 40 MG DAILY 09/17 0900 DC 09/17 PO 0819 Gabapentin 300 MG TID 09/16 213 AC 09/17 PO 2129 Heparin Sodium 5,000 UNIT Q8 09/17 0600 AC 09/18 (Porcine) SC 0509 Insulin Aspart 0 TIDAC/HS 09/17 0819 AC 09/17 SC 1851 Insulin Aspart 0 TIDAC 09/17 0800 DC SC Insulin Aspart 0 TIDAC 09/17 0800 DC SC Insulin Detemir 10 UNITS BID 09/17 0900 AC 09/17 SC 2130 Insulin Detemir 7 UNITS BID 09/17 0248 DC SC Lacosamide 50 MG BID 09/16 2139 AC 09/17 PO 2128 Lisinopril 5 MG DAILY 09/18 0900 DC PO Lisinopril 10 MG DAILY 09/18 0900 AC PO Metoclopramide HCl 10 MG TIDAC 09/17 0800 AC 09/17 PO 1717 Mycophenolate Mofetil 750 MG BID 09/16 2138 AC 09/17 PO 2129 Ondansetron HCl 4 MG Q6P PRN 09/16 2215 AC IV Pravastatin Sodium 40 MG 1700 09/17 1700 AC 09/17 PO 1717 Prednisone 5 MG DAILY 09/17 0900 AC 09/17 PO 0819 Tacrolimus 1.5 MG BID 09/16 2144 AC 09/17 PO 8 Last 24 Hrs of Lab/Shabbir Results Last 24 Hrs of Labs/Mics: Laboratory Tests 09/18/17 0619: Sodium Pending, Potassium Pending, Chloride Pending, Carbon Dioxide Pending, Anion Gap Pending, BUN Pending, Creatinine Pending, BUN/Creatinine Ratio Pending , CBC w Diff Pending, WBC Pending, RBC Pending, Hgb Pending, Hct Pending, MCV Pending, MCH Pending, MCHC Pending, RDW Pending, Plt Count Pending, MPV Pending Microbiology 09/18 314 STOOL: Clostridium difficile Toxin A & B - RECD 09/18 1855 LOWER RESP: Respiratory Culture - COLB 09/18 1855 LOWER RESP: Gram Stain - COLB 09/17 941 LOWER RESP: Respiratory Culture - COLB 09/17 941 LOWER RESP: Gram Stain - COLB Assessment/Plan Assessment: 51 year old female with history of ESRD s/p renal transplant on immunosuppression, as well as IDDM, HTN, COPD, history of TIA/CVA and seizures. The patient had been seen in the ED for diarrhea 3 days prior to being admitted with weakness, hypertensive urgency and altered mental status in the setting of hypoxia. Pneumonia was clinically suspected and empiric antibiotics were started in the setting of immunosuppression, without fever or white count. Overnight the patient had a hypoglycemic episode, in the setting of new insulin regimen while an inpatient, with HS insulin without an evening snack. This morning, the patient's blood pressure was 92/54, and the patient reports a history of orthostatic hypotension, so close BP monitoring will be important to her clinical course. The patient's cough is continuing, sputum culture obtained this morning. Problems: 1. ESRD s/p renal transplant on immunosuppressants 2. Hypertensive urgency 3. Possible pneumonia on immunosuppression 4. IDDM, gastroparesis--hypoglycemic episode early this morning 5. History of CVA/TIA and seizures Plan: * Follow-up sputum culture, continue Unasyn and doxycycline * In the setting of orthostatic hypotension and BP of 94/52 today, hold BP meds for systolic under 190 today * MRI foot to evaluate possible osteomyelitis in the setting of diabetic neuropathy and lesion on the right 3rd toe, rule-out infection * Continue Reglan for gastroparesis * Continue immunosuppressive regimen s/p renal transplant Code status: DNR/DNI Prophylaxis: Heparin sc Labs: CBC & BEP Diet: Low fat diet (gastroparesis) Problem List: 1. Hypertensive urgency 2. Pleural effusion 3. Gastroparesis 4. Hypoglycemia due to insulin Pain Ratin Pain Location: none Pain Goal: Pain 4 or less Pain Plan: per pathway Tomorrow's Labs & Rationales: CBC & BEP
[2017-09-18 07:42] LABS: ABSOLUTE BASOPHIL COUNT 0 /CUMM (0.0-0.2); ABSOLUTE EOSINOPHIL COUNT 0.2 /CUMM (0.0-0.7); ABSOLUTE GRANULOCYTE CT 4.5 /CUMM (1.4-6.5); ABSOLUTE LYMPH COUNT 2.5 /CUMM (1.2-3.4); ABSOLUTE MONOCYTE COUNT 1.1 /CUMM (0.10-0.60); BASOPHIL % 0.4 % (0.0-2.0); EOSINOPHIL % 1.8 % (0-5); GRANULOCYTE % 54.9 % (42.2-75.2); HEMATOCRIT 35.4 % (37-47); MEAN CORPUSCULAR HGB 27.1 PG (27.0-31.0); MEAN CORPUSCULAR HGB CONC 31.7 G/DL (33.0-37.0); MEAN CORPUSCULAR VOLUME 85.8 FL (81.0-99.0); MEAN PLATELET VOLUME 8.8 FL (7.4-10.4); PLATELET COUNT 346 /CUMM (130-400); RED BLOOD CELL CT 4.13 /CUMM (4.20-5.40); WHITE BLOOD CELL COUNT 8.2 /CUMM (4.8-10.8)
--- NOTE | 2017-09-18 08:46 | PN- Pulmonary ---
Subjective HPI/Critical Care Issues: The patient is awake and alert. She reports feeling improved since admission. She still has a cough but is having difficulty with expectoration. She has shortness of breath however this has improved with treatment as well. There were no overnight events reported. Objective Current Medications: Current Medications Sig/Marvin Start time Last Medication Dose Route Stop Time Status Admin Acetaminophen 650 MG .STK-MED ONE 09/17 1713 DC PO 09/17 1714 Acetaminophen 650 MG Q6P PRN 09/16 2215 AC 09/17 PO 1717 Alprazolam 0.25 MG BID PRN 09/16 2145 AC 09/17 PO 09/23 2144 1717 Amlodipine Besylate 2.5 MG ONCE ONE 09/18 1999 DC 09/17 PO 09/17 Amlodipine Besylate 2.5 MG ONCE ONE 09/17 1730 DC 09/17 PO 09/17 173 1731 Ampicillin Sodium/ 1,500 MG Q6H 09/18 1999 AC 09/18 Sulbactam Sodium IV 0825 Sodium Chloride 100 ML Ceftazidime 1,000 MG Q12 09/17 0900 DC 09/17 IV 0819 Codeine 120 MG Q8 PRN 09/16 2145 AC 09/17 PO 1854 Dipyridamole/Aspirin 1 CAP BID 09/16 2300 AC 09/18 PO 0826 Doxycycline Hyclate 100 MG BID 09/17 2100 AC 09/18 PO 0826 Doxycycline Hyclate 100 MG BID 09/17 0900 DC 09/17 PO 0819 Famotidine 20 MG BID 09/16 213 AC 09/18 PO 0826 Furosemide 20 MG DAILY 09/18 09 AC 09/18 PO 0823 Furosemide 40 MG DAILY 09/17 0900 DC 09/17 PO 0819 Gabapentin 300 MG TID 09/16 213 AC 09/18 PO 0826 Heparin Sodium 5,000 UNIT Q8 09/17 06 AC 09/18 (Porcine) SC 0509 Insulin Aspart 0 TIDAC/HS 09/17 08 AC 09/18 SC 0822 Insulin Aspart 0 TIDAC 09/17 0800 DC SC Insulin Detemir 8 UNITS BID 09/18 0900 AC 09/18 SC 0821 Insulin Detemir 10 UNITS BID 09/17 0900 DC 09/17 SC 2130 Lacosamide 50 MG BID 09/16 213 AC 09/18 PO 0827 Lisinopril 5 MG DAILY 09/18 09 DC PO Lisinopril 10 MG DAILY 09/18 899 AC PO Magnesium Oxide 400 MG 0815 09/18 0815 DC PO 09/18 0816 Metoclopramide HCl 10 MG TIDAC 09/17 0800 AC 09/18 PO 0823 Mycophenolate Mofetil 750 MG BID 09/16 2138 AC 09/18 PO 0825 Ondansetron HCl 4 MG Q6P PRN 09/16 2215 AC IV Pravastatin Sodium 40 MG 1700 09/17 1700 AC 09/17 PO 1717 Prednisone 5 MG DAILY 09/17 09 AC 09/18 PO 0826 Tacrolimus 1.5 MG BID 09/16 2145 AC 09/18 PO 0826 Vital Signs & I&O Last 24 Hrs of Vitals and I&O: Vital Signs Date Time Temp Pulse Resp B/P B/P Pulse O2 O2 Flow FiO2 Mean Ox Delivery Rate 09/18 0633 98.1 78 22 94/52 94 Nasal Cannula 09/17 2208 98.4 78 20 146/82 93 Nasal Cannula 09/17 2158 Nasal 3.0L Cannula 09/17 1731 83 162/100 09/17 1600 Nasal 3.0L Cannula 09/17 1432 98.3 79 24 112/58 96 Room Air Intake & Output 09/18 1600 09/18 0800 09/18 0000 Intake Total 470 210 Output Total 500 Balance -30 210 Intake, IV 110 110 Intake, Oral 360 100 Number 2 Bowel Movements Output, Urine 500 Patient 127 lb Weight Weight Bed scale Measurement Method Physical Exam General Appearance: no apparent distress, alert, awake, comfortable Head: atraumatic, normal appearance Neck: supple Respiratory: bilateral crackles and ronchi Cardiovascular: regular rate/rhythm Gastrointestinal: normal bowel sounds, soft, non-tender Extremities: no edema Skin: intact, normal color, warm/dry Results Last 24 Hrs of Lab Results: Laboratory Tests 09/18/17 0619: Anion Gap 13, Estimated GFR 58 L, BUN/Creatinine Ratio 21.0, Magnesium 1.7, CBC w Diff NO MAN DIFF REQ, RBC 4.13 L, MCV 85.8, MCH 27.1, MCHC 31.7 L, RDW 19.0 H, MPV 8.8, Gran % 54.9, Lymphocytes % 30.0, Monocytes % 12.9 H, Eosinophils % 1.8, Basophils % 0.4, Absolute Granulocytes 4.5, Absolute Lymphocytes 2.5, Absolute Monocytes 1.1 H, Absolute Eosinophils 0.2, Absolute Basophils [address] Scan Findings: 1. Overall, compared to 07/26/2014, there is worsening tree-in-bud nodularity in both lungs, consistent with infectious bronchiolitis. Also, there is peribronchial consolidation (i.e., bronchopneumonia) in both lower lobes, right worse than left. No pleural effusion. 2. Mild lymphadenopathy within the mediastinum. Impression/Plan Impression/Plan Impression/Plan: 1. Pneumonia - CT scan is consistent with infectious bronchiolitis, demonstrating tree-in-bud nodularity in both lungs, with bibasilar peribronchial consolidation suggestive of pneumonia. On Unasyn and doxycycline, ID following. 2. Gastroparesis and possible aspiration. 3. History of chronic bronchiectasis post renal transplant, noted since 2007. 4. Severe COPD, most recently demonstrated on pulmonary function testing done in June 2017. 5. Chronic hypoxemic respiratory failure secondary to severe COPD and bronchiectasis. 6. History of renal transplant in 2007, on immunosuppressive therapy. 7. History of stroke and TIA. 8. Seizure disorder. 9. Insulin dependent diabetes. 10. Chronic pain, on opiates. 11. Right third toe ulcer. Recommendations: * Continue Unasyn and doxycycline per ID. * Follow-up cultures. * Continue nebs/total respiratory care. Please ensure the patient receives at least twice daily albuterol nebulizer treatments. * Add Spiriva 1 inhalation every morning. * Please ask respiratory to teach inhaler use (can be entered in orders). * Taper oxygen down for saturations greater than 92%. * Follow-up echocardiogram results. * Continue patient's home medication regimen. * Osteomyelitis workup per primary team and ID. * Continue all supportive care. * DVT prophylaxis at all times.
[2017-09-18 08:49] VITALS: BP 122/64
--- NOTE | 2017-09-18 09:19 | PN- Diabetes ---
Assessment/Plan Diabetes Assessment: 51 years old lady with a significant past medical history of insulin dependent DM (on insulin pump), COPD (on night time O2 4 L/Min), ESRD (Rt side renal transplant 10 years ago, on Tacrolimus, mycophenolate, and prednisolone), CVA/ TIA and seizures , gasteroparesis, GERD, and neuropathy, was broght to ER for evaluation of loss of appetite, and nausea. Her BP was found to be 208/92. She was admitted to tele for hypertensive urgency. Due to the hospital policy, insulin pump has been held. She was put on Levemir 10 units twice a day; Novolog coverage before meals and another Novolog coverage at bedtime: Before Each Meal: Bolus Insulin: Novolog < 80 mg/dl: no coverage 80-100 mg/dl: 2 units 101-120 mg/dl: 2 units 121-150 mg/dl: 2 units 151-200 mg/dl: 3 units 201-250 mg/dl: 4 units 251-300 mg/dl: 5 units 301-350 mg/dl: 6 units 351-400 mg/dl: 8 units > 400 mg/dl: 10 units Bedtime: Bolus Insulin: Novolog < 80 mg/dl: No coverage 80-100 mg/dl: no coverage 101-120 mg/dl: no coverage 121-150 mg/dl: no coverage 151-200 mg/dl: no coverage 201-250 mg/dl: no covearge 251-300 mg/dl: 2 units 301-350 mg/dl: 3 units 351-400 mg/dl: 4 units > 400 mg/dl: 5 units During the day, her FSGs were stable; however, she had an episode of hypoglycemia overnight with glucose level of less than 50. Her glucose level was 132 this morning. Plan: 1. decrease Levemir to 8 units twice a day; 2. continue the current Novolog coverage before meals and Novolog coverage at bedtime; 3. monitor FSGs; 4.if she is medically stable for discharge, she will go back on her meditronic insulin pump--- I have adjsuted her basal rate as her basal insulin requirement has decreased. Basal rate: midnight 0.65units per hour; 3 am 0.8 units per hour; 6 am 0.8 units per hour 12 pm 0.75 units per hour 4 pm 1.0 units per hour 22 pm 0.65 units per hour IC ratio 16 grams; insulin sensitivity 70-100 mg/dl Target: 110-120 mg/dl Active insulin time: 4 hours 5. f/u with Dr. Morin in the office after discharge. Subjective Subjective: Overall she has been feeling better. Objective Last 24 Hrs of Vital Signs/I&O Vital Signs Date Time Temp Pulse Resp B/P B/P Pulse O2 O2 Flow FiO2 Mean Ox Delivery Rate 09/18 0849 122/64 09/18 0633 98.1 78 22 94/52 94 Nasal Cannula 09/17 2208 98.4 78 20 146/82 93 Nasal Cannula 09/17 2158 Nasal 3.0L Cannula 09/17 1731 83 162/100 09/17 1600 Nasal 3.0L Cannula 09/17 1432 98.3 79 24 112/58 96 Room Air Intake & Output 09/18 1600 09/18 0800 09/18 0000 Intake Total 470 210 Output Total 500 Balance -30 210 Intake, IV 110 110 Intake, Oral 360 100 Number 2 Bowel Movements Output, Urine 500 Patient 127 lb Weight Weight Bed scale Measurement Method
--- NOTE | 2017-09-18 09:54 | RADIOLOGY REPORT ---
EXAMINATION: XR FOOT, RIGHT CLINICAL INFORMATION: Right foot toe ulcer. Question osteomyelitis. COMPARISON: None TECHNIQUE: 2 views of the right foot. FINDINGS: There is periarticular osteopenia. The patient is status post distal osteotomy involving the fifth metatarsal bone and amputation of the fourth digit at the metatarsophalangeal joint level. Hammertoe deformities of the first, second and third toes are seen, which limits assessment of the toes, but no definite evidence of osteomyelitis is seen by plain film. No periostitis is noted. No ankle joint effusion is seen. Mild degenerative changes are seen at the interphalangeal joints and the first metatarsophalangeal joint and the first tarsometatarsal joint. Mild soft tissue swelling is noted about the ankle, dorsum of the foot, and along the plantar surface of the metatarsal phalangeal joints. Faint arterial soft tissue calcifications are noted. IMPRESSION: 1. No plain film evidence of osteomyelitis. 2. Changes related to prior osteotomy/amputation as described above. 3. Osteopenia with mild degenerative changes in the foot.
[2017-09-18 10:00] VITALS: BP 150/82
--- NOTE | 2017-09-18 10:44 | PN- Att Addend ---
Attending Addendum Attending Brief Note Patient seen and examined. Resting comfortably and not in any acute distress. This morning she was hypoglycemic with blood glucose level less than 50. Blood glucose levels have improved. She has been seen by the endocrinology service. She was hypotensive yesterday with blood pressure in the 170s systolic. She did receive a total of 5 mg of amlodipine yesterday. Cardiology service had recommended resuming her Lasix and starting patient on lisinopril. This morning her blood pressure was in the 90s systolic prior to any meds. Blood pressure improved to 120 systolic. She received 20 mg of Lasix. Just over 1 hour after this orthostatic pressures were obtained. She dropped her blood pressure from 160 systolic supine to 90 systolic sitting and and 50 systolic standing. She reported feeling very dizzy. She admits to history of dizziness with position changes. She admits to history of dizziness while ambulating in the community and states that she has to sit down frequently to rest. Vital Signs Date Time Temp Pulse Resp B/P B/P Pulse O2 O2 Flow FiO2 Mean Ox Delivery Rate 09/18 0849 122/64 09/18 0633 98.1 78 22 94/52 94 Nasal Cannula 09/17 2208 98.4 78 20 146/82 93 Nasal Cannula 09/17 2158 Nasal 3.0L Cannula 09/17 1731 83 162/100 09/17 1600 Nasal 3.0L Cannula 09/17 1432 98.3 79 24 112/58 96 Room Air General appearance: Well-developed and not in any acute distress. HEENT: Anicteric, no pallor, pupils equal and reactive. Neck: Supple with no jugular venous distention. Heart: S1-S2 regular with no audible murmur. Lungs: Adequate and symmetric air entry bilaterally with no added sounds. Abdomen: Nondistended with normal bowel sounds. Soft, nontender with no palpable masses. Extremities: No pedal edema. Dry ulceration third right toe. No surrounding erythema. No discharge. Skin: Intact 61-year-old female with history of bronchiectasis, COPD on nocturnal oxygen, insulin-dependent diabetes mellitus with an insulin pump, end-stage renal disease status post transplant, stroke/TIA, seizure disorder, gastroparesis, neuropathy, osteomyelitis status post amputation of the right fifth toe, orthostatic hypotension. Presented emergency room with complaints of nausea vomiting. Found in the emergency room to have markedly elevated blood pressure. X-ray imaging was suggestive of pneumonia so she was started on antibiotic therapy and admitted to the telemetry service for management of her blood pressure. Problems: 1. Bilateral pneumonia 2. Nausea vomiting; resolved 3. Severe orthostatic hypotension 4. Severe COPD on nocturnal O2 5. Insulin-dependent diabetes mellitus 6. Chronic pain syndrome 7. Right third toe ulceration 8. Status post renal transplant on immunosuppressive therapy. Plan: -Given significant drop in her blood pressure today would recommend discontinuation of antihypertensive medications. Would recommend treating her blood pressure only if systolic blood pressure is greater than 190 systolic. If her blood pressure is elevated, would recommend to sit the patient up in order to bring the blood pressure down to a more acceptable range. -Patient refuses to wear compression stockings. -Continue antibiotic therapy with Unasyn and doxycycline as recommended by the ID service. Follow-up sputum cultures. -Continue respiratory therapy as recommended by the pulmonology service. -No evidence of osteo-myelitis on the x-ray. -Patient was hypoglycemic this morning. Endocrinology recommendations appreciated.
--- NOTE | 2017-09-18 11:22 | PN- Infect Dx ---
Subjective Subjective: Afebrile on steroids. She feels well but did note an episode of hypoglycemia earlier this morning. She has no further nausea or vomiting but did have 2 soft stools. She does not report shortness of breath but did note a cough, productive of haywood sputum, this morning. Objective Last 24 Hrs of Vital Signs/I&O Vital Signs Date Time Temp Pulse Resp B/P B/P Pulse O2 O2 Flow FiO2 Mean Ox Delivery Rate 09/18 1000 150/82 09/18 0849 122/64 09/18 0633 98.1 78 22 94/52 94 Nasal Cannula 09/17 2208 98.4 78 20 146/82 93 Nasal Cannula 09/17 2158 Nasal 3.0L Cannula 09/17 1731 83 162/100 09/17 1600 Nasal 3.0L Cannula 09/17 1432 98.3 79 24 112/58 96 Room Air Intake & Output 09/18 1600 09/18 0800 09/18 0000 Intake Total 470 210 Output Total 500 Balance -30 210 Intake, IV 110 110 Intake, Oral 360 100 Number 2 Bowel Movements Output, Urine 500 Patient 127 lb Weight Weight Bed scale Measurement Method Physical Exam Other Physical Findings: She appears comfortable in no acute distress Lungs diffuse rhonchi and crackles Heart regular rhythm with a 2/6 systolic ejection murmur Abdomen is soft, nontender with positive bowel sounds Extremities right third toe swelling, with an ulcer over the dorsal aspect with no surrounding inflammation Results Last 24 Hours of Lab Results: Laboratory Tests 09/18 06 Chemistry Sodium (137 - 145 mmol/L) 137 Potassium (3.5 - 5.1 mmol/L) 4.2 Chloride (98 - 107 mmol/L) 94 L Carbon Dioxide (22 - 30 mmol/L) 30 Anion Gap (5 - 16) 13 BUN (7 - 17 mg/dL) 21 H Creatinine (0.5 - 1.0 mg/dL) 1.0 Estimated GFR (>60 ml/min) 58 L BUN/Creatinine Ratio (7 - 25 %) 21.0 Magnesium (1.6 - 2.3 mg/dL) 1.7 Hematology CBC w Diff NO MAN DIFF REQ WBC (4.8 - 10.8 /CUMM) 8.2 RBC (4.20 - 5.40 /CUMM) 4.13 L Hgb (12.0 - 16.0 G/DL) 11.2 L Hct (37 - 47 %) 35.4 L MCV (81.0 - 99.0 FL) 85.8 MCH (27.0 - 31.0 PG) 27.1 MCHC (33.0 - 37.0 G/DL) 31.7 L RDW (11.5 - 14.5 %) 19.0 H Plt Count (130 - 400 /CUMM) 346 MPV (7.4 - 10.4 FL) 8.8 Gran % (42.2 - 75.2 %) 54.9 Lymphocytes % (20.5 - 51.1 %) 30.0 Monocytes % (1.7 - 9.3 %) 12.9 H Eosinophils % (0 - 5 %) 1.8 Basophils % (0.0 - 2.0 %) 0.4 Absolute Granulocytes (1.4 - 6.5 /CUMM) 4.5 Absolute Lymphocytes (1.2 - 3.4 /CUMM) 2.5 Absolute Monocytes (0.10 - 0.60 /CUMM) 1.1 H Absolute Eosinophils (0.0 - 0.7 /CUMM) 0.2 Absolute Basophils (0.0 - 0.2 /CUMM) 0 Last 24 Hours of Shabbir Results: Blood cultures 2 September 16 negative Sputum culture September 18 pending Stool C. difficile September 18 pending Recent Imaging Studies: X-ray of the right foot September 17 no evidence for osteomyelitis Assessment/Plan ID Impression: Stable, with temperatures and white blood cell count remaining normal, now on Unasyn and Doxycycline, Day 2 of treatment for possible bibasilar bronchopneumonia, suggested on the recent CT of the chest. Her GI symptoms have mostly resolved, though she did have several soft stools this morning. The x- ray of her right foot does not suggest osteomyelitis but, given her nonhealing ulcer, an MRI may need to be considered. Suggestion: 1. Follow-up sputum culture 2. Follow-up stool for C. difficile 3. Consider MRI of the right foot 4. Continue Unasyn and Doxycycline pending above
--- NOTE | 2017-09-18 11:35 | PN- Nephrology ---
Assessment/Plan Nephrology Assessment: Doing well. BP better controlled. On antibiotics for pneumonia. Continue meds. Ashok Grider MD Suggestion: . Subjective Subjective: Pt doing well. feels better. Objective Vital Signs and I&Os F NAD 150/80 78 98 Lungs bilat ronchi (chronic) Cor RRR Abd soft Ext neg edema Results Pertinent Lab Results: 137/ 94 / 21 / 4.2 / 30 / 1.0\
--- NOTE | 2017-09-18 11:55 | ECHOCARDIOGRAM REPORT ---
SHELDON VASQUEZ Age: 51 : 1965 Gender: F Exam Date: 09/17/2017 18:21 Exam Location: 1 [address] Ht (in): 66 Wt (lb): 120 BSA: 1.59 BP: 112 / 58 Ordering Physician: Jaquan Rea MD Referring Physician: Deejay Ledesma MD, PhD Technologist: Lisa Perera [facility] [[email or web address] Room Number: 181 Indications: Hypertension Rhythm: Sinus Technical Quality: fair FINDINGS Left Ventricle Normal left ventricular size with moderate left ventricular hypertrophy. Normal systolic function with no obvious regional wall motion abnormalities. Diastolic filling pattern is consistent with impaired LV relaxation. The ejection fraction is visually estimated at 70%. Right Ventricle The right ventricle is normal in size and function. Right Atrium The right atrium is normal in size. Left Atrium The left atrium is normal in size. The interatrial septum is intact. Mitral Valve The mitral valve demonstrates mild annular calcification with normal function. Systolic anterior motion of the anterior mitral valve leaflet is noted. There is mild mitral regurgitation. Aortic Valve Mildly thickened and sclerotic aortic valve without significant stenosis. There is no aortic regurgitation. Tricuspid Valve The tricuspid valve is normal in structure and function. There is trace tricuspid regurgitation. Pulmonary artery systolic pressure is normal. Pulmonic Valve Structurally normal pulmonic valve. There is trace pulmonic regurgitation. Pericardium Normal pericardium without effusion. No pleural effusion. Great Vessels Normal aortic root dimension. The aortic arch and great vessels are well seen and are normal. CONCLUSIONS 1. Normal EF of 70% with impaired LV relaxation. 2. Moderate left ventricular hypertrophy. 3. Mild mitral regurgitation with mitral annular calcification. Systolic anterior motion of the anterior leaflet is noted. 4. Trace tricuspid regurgitation. 5. Trace pulmonic regurgitation. 6. Mild aortic sclerosis without stenosis. Deejay Ledesma M.D. (Electronically Signed) Final Date: 18 September 2017 11:51 MEASUREMENTS (Male / Female) Normal Values 2D ECHO LV Diastolic Diameter PLAX 3.6 cm 4.2 - 5.9 / 3.9 - 5.3 cm LV Systolic Diameter PLAX 1.7 cm 2.1 - 4.0 cm LV Fractional Shortening PLAX 52.8 % 25 - 46 % LV Ejection Fraction 2D Teich 84.6 % IVS Diastolic Thickness 1.7 cm LVPW Diastolic Thickness 1.7 cm LV Relative Wall Thickness 0.9 RV Internal Dim ED PLAX 2.4 cm 1.9 - 3.8 cm LVOT Diameter 1.8 cm Aortic Root Diameter 2.9 cm LA Systolic Diameter LX 3.2 cm 3.0 - 4.0 / 2.7 - 3.8 cm LA Volume 31.0 cm 18 - 58 / 22 - 52 cm Ascending Aorta Diameter 3.0 cm DOPPLER AV Peak Velocity 152.0 cm/s AV Peak Gradient 9.2 mmHg AV Mean Velocity 104.0 cm/s AV Mean Gradient 5.0 mmHg AV Velocity Time Integral 36.1 cm LVOT Peak Velocity 104.0 cm/s LVOT Peak Gradient 4.3 mmHg LVOT Mean Velocity 74.5 cm/s LVOT Mean Gradient 3.0 mmHg LVOT Velocity Time Integral 26.3 cm LVOT Stroke Volume 66.9 cm AV Area Cont Eq vti 1.9 cm AV Area Cont Eq pk 1.7 cm MV Peak Velocity 154.0 cm/s MV Peak Gradient 9.5 mmHg MV Mean Velocity 92.4 cm/s MV Mean Gradient 4.0 mmHg Mitral E Point Velocity 75.0 cm/s Mitral A Point Velocity 113.0 cm/s Mitral E to A Ratio 0.7 MV PHT Velocity 151.0 cm/s MV Deceleration Dickenson 897.0 cm/s MV Pressure Half Time 50.5 ms MV Area PHT 4.4 cm MV Deceleration Time 174.0 ms TR Peak Velocity 176.0 cm/s TR Peak Gradient 12.4 mmHg Right Atrial Pressure 5.0 mmHg Pulmonary Artery Systolic Pressure 17.4 mmHg Right Ventricular Systolic Pressure 17.4 mmHg PV Peak Velocity 124.0 cm/s PV Peak Gradient 6.2 mmHg PV Mean Velocity 81.1 cm/s PV Mean Gradient 3.0 mmHg PV Velocity Time Integral 25.0 cm LV E' Lateral Velocity 5.9 cm/s Mitral E to LV E' Lateral Ratio 12.6 LV E' Septal Velocity 6.5 cm/s Mitral E to LV E' Septal Ratio 11.5
--- NOTE | 2017-09-18 13:50 | PN- Cardiology ---
Subjective Subjective: * Patient feels improved without shortness of breath despite severe upper airway congestion. No chest pain. * Echo shows a mild outflow tract obstruction with normal EF Objective Vital Signs and I&Os Vital Signs Date Time Temp Pulse Resp B/P B/P Pulse O2 O2 Flow FiO2 Mean Ox Delivery Rate 09/18 1000 150/82 09/18 0849 122/64 09/18 0633 98.1 78 22 94/52 94 Nasal Cannula 09/17 2208 98.4 78 20 146/82 93 Nasal Cannula 09/17 2158 Nasal 3.0L Cannula 09/17 1731 83 162/100 09/17 1600 Nasal 3.0L Cannula 09/17 1432 98.3 79 24 112/58 96 Room Air Intake & Output 09/18 1600 09/18 0800 09/18 0000 09/17 1600 09/17 0800 09/17 0000 Intake Total 470 210 693 929 3040 Output Total 500 1400 200 Balance -30 210 -1100 -80 1000 Intake, IV 009 770 1942 Intake, Oral 360 100 300 120 Number 2 Bowel Movements Output, Urine 500 1400 200 Patient 127 lb 127 lb 120 lb Weight Weight Bed scale Bed scale Reported by Patient Measurement Method Physical Exam: General: WD/WN female in NAD; alert and oriented x 3 HEENT: NC/AT, Left eye reactive to light with EOMI Neck: no JVD, no carotid bruit Heart: RRR with 2/6 systolic murmur at the LLSB and RUSB Lungs: course crackles bilaterally with upper airway sounds and wheezing Abdomen: soft, NT, +ve bowel sounds Ext: no edema, right toe amp Assessment/Plan Assessment/Plan * Hypertension. This patient was very hypertensive upon initial presentation to the ER. This is possibly due to decreased intake of her medications while experiencing a decreased responsiveness as well as to difficulty keeping her medications down in the setting of vomiting. She likely also had an increase in stress hormones due to her acute illness. Her blood pressure has improved although it is not in the ideal range. In consideration of her small pleural effusion I would restart her diuretic. Her renal function is normal. Begin Lasix at 20mg daily. Increase Lisinopril to a more effective dose of 10mg daily with monitoring of her BUN and creatinine. In consideration of her outflow tract obstruction this patient will do better with a slower heart rate and minimal afterload reduction. Begin Metoprolol 25mg BID. * This patient appears to have a primary pulmonary problem without evidence of myocardial ischemia or decompensated CHF. Continue telemetry? Yes
[2017-09-18 14:17] VITALS: BP 94/56
--- NOTE | 2017-09-18 22:06 | Event Note ---
Event Note Event Note: two VTach runs of 4 and then 6 beats
[2017-09-18 22:29] VITALS: BP 142/94
--- NOTE | 2017-09-18 22:31 | Event Note ---
Event Note Event Note: Situation: I was informed by the nurse that Ms. Mccann had a V. tach run of 4 beats followed by a 6 beat V. tach at 21: 33. Background: Ms. Cuevas is a 51 years old lady with past medical history of IDDM, ESRD (Rt side renal transplant), COPD (on home night )2 4L/min), TIA/CVA and seizures since 2014, who is here with generalized weakness, fever and chills, headache and loss of appetite. She has a BP of 197/94 and headache and nausea. Her current symptoms (headache), are probably caused by hypertensive emergency. Assessment: I agree stated that examined the patient, she did not report any chest pain, shortness of breath, lightheadedness, dizziness, or any pain overall. She was breathing normally and was in no acute distress. I reviewed the labs of the patient, labs from this morning showed a potassium of 4.2, magnesium: 1.7, calcium was checked September 16 which was 9.3. Recommendations: Since the patient is not symptomatic, and the V. tach was not sustained, EKG was not obtained, and since her electrolytes and lab results are up to date and within normal limits, we will closely observe the patient and if the V. tach repeats I will reassess the patient.
--- NOTE | 2017-09-19 05:40 | PN- Housestaff ---
Aristeo Forbes 09/19/17 0540: Subjective Follow-up For: Hypertensive urgency Pneumonia (possible) Renal transplant on immunosuppressants IDDM COPD History of CVA/TIA and seizures Tele-Events Since Last Visit: NSR overnight, with an episode of unsustained V. tach, for which the patient was asymptomatic. Subjective: Patient seen sitting comfortably at the bedside, in no acute distress. Overnight, the patient had a brief run of V. tach overnight, was asymptomatic. This morning, however, when discussing the incident the patient inquired whether defibrillation would be considered a resuscitative measure. After discussion, the patient made her wishes known that she would like to remain DNI status, but would like to be resuscitated if situation arises. Otherwise, she did not have any other complaints. Her blood sugar overnight remained within normal limits, after an evening snack. And the patient reported that her breathing felt much improved. Patient denies chest pain, shortness of breath, palpitations, or dizziness. Review of Systems Constitutional: Denies: chills, fever, weakness. Cardiovascular: Denies: chest pain, palpitations, peripheral edema. Respiratory: Reports: cough. Denies: short of breath. Gastrointestinal: Denies: abdominal pain, nausea, vomiting. Objective Last 24 Hrs of Vital Signs/I&O Vital Signs Date Time Temp Pulse Resp B/P B/P Pulse O2 O2 Flow FiO2 Mean Ox Delivery Rate 09/19 1000 74 110/74 09/19 0802 72 110/62 09/19 0800 Room Air Room Air 09/19 0626 98.0 72 18 118/64 93 Nasal Cannula 09/18 2229 98.3 79 14 142/94 94 09/18 2018 Nasal 3.0L Cannula 09/18 1600 Nasal 3.0L Cannula 09/18 1417 98.2 78 18 94/56 90 Nasal 3.0L Cannula Intake & Output 09/19 1600 09/19 0800 09/19 0000 Intake Total 360 440 Output Total Balance 360 440 Intake, IV 200 200 Intake, Oral 160 240 Patient 57.805 kg Weight Physical Exam General Appearance: Alert, Oriented X3, Cooperative, No Acute Distress Neck: Supple, No JVD Cardiovascular: Regular Rate, Normal S1, Normal S2, systolic murmur appreciated Lungs: Clear to Auscultation Abdomen: Normal Bowel Sounds, Soft, No Tenderness Neurological: Normal Gait, Normal Speech Assessment/Plan Assessment: 51 year old female with history of ESRD s/p renal transplant on immunosuppression, as well as IDDM, HTN, COPD, history of TIA/CVA and seizures. The patient had been seen in the ED for diarrhea 3 days prior to being admitted with weakness, hypertensive urgency and altered mental status in the setting of hypoxia. Pneumonia was clinically suspected and empiric antibiotics were started in the setting of immunosuppression, without fever or white count. This morning , the patient received her lisinopril and Lasix, and the patient's orthostatics are positive this morning. The patient's cough is continuing, but she reports this is chronic, sputum culture obtained yesterday. Problems: 1. ESRD s/p renal transplant on immunosuppressants 2. Hypertensive urgency 3. Possible pneumonia on immunosuppression 4. IDDM, gastroparesis--hypoglycemic episode early this morning 5. History of CVA/TIA and seizures Plan: * Discuss metoprolol with cardiology in the setting of V. tach overnight * Follow-up sputum culture, continue Unasyn and doxycycline * DC blood pressure medicines for now in the setting of orthostatic hypotension * Check and replete magnesium as necessary, keep above 2.0 * Follow-up MRI foot * Continue Reglan for gastroparesis * Continue immunosuppressive regimen s/p renal transplant * Update patient's code status to DNI Code status: DNI Prophylaxis: Heparin sc Labs: CBC & BEP Diet: Low fat diet (gastroparesis) Problem List: 1. Hypertensive urgency 2. Gastroparesis 3. Hypoglycemia due to insulin 4. Pleural effusion Pain Ratin Pain Location: none Pain Goal: Pain 4 or less Pain Plan: per pathway Tomorrow's Labs & Rationales: Mg++, BEP, CBC Winsome VILLA,[facility] 09/19/17 1434: Attending MD Review Statement Attending Statement Attending MD Statement: examined this patient, discuss w/resident/PA/STEWARD/STEWARDESS NIGHT, agreed w/resident/PA/STEWARD/STEWARDESS NIGHT, reviewed EMR data (avail), discussed with nursing, discussed with case mgmt, amended to note Attending Assessment/Plan: Patient seen and examined. Resting comfortably not in any acute distress. No issues overnight. No new complaints today. On telemetry overnight she had an episode of nonsustained ventricular tachycardia. She was symptomatic at that time. She reports feeling much better. Cough is improving. Little phlegm production. Sputum culture is growing mixed joey. On examination she has improved air entry bilaterally with mild rhonchi. Problems: 1. Bilateral pneumonia 2. Nausea vomiting; resolved 3. Severe orthostatic hypotension 4. Severe COPD on nocturnal O2 5. Insulin-dependent diabetes mellitus 6. Chronic pain syndrome 7. Right third toe ulceration 8. Status post renal transplant on immunosuppressive therapy. Plan: -Follow-up MRI of the foot -Continue current IV antibiotic therapy. The patient remains afebrile overnight with improved respiratory symptoms recommend transitioning to oral antibiotic therapy. -Bronchodilator regimen as recommended by the pulmonology service. -Follow-up with cardiology service regarding episode of nonsustained ventricular tachycardia overnight. She is clinically stable on low-dose beta-fredy therapy. Lisinopril and Lasix have been discontinued. -She does have history of orthostatic-hypotension most likely secondary to autonomic dysfunction from diabetes she has been counseled on lifestyle modification. She continues to refuse to use compression stockings. -Anticipate discharge home tomorrow if clinically stable from pulmonology standpoint and cleared by the cardiology service. -Repeat labs tomorrow only if there is a change in her clinical status
[2017-09-19 06:26] VITALS: BP 118/64
[2017-09-19 07:49] LABS: ABSOLUTE BASOPHIL COUNT 0 /CUMM (0.0-0.2); ABSOLUTE EOSINOPHIL COUNT 0.1 /CUMM (0.0-0.7); ABSOLUTE GRANULOCYTE CT 4.4 /CUMM (1.4-6.5); ABSOLUTE LYMPH COUNT 2.3 /CUMM (1.2-3.4); ABSOLUTE MONOCYTE COUNT 0.8 /CUMM (0.10-0.60); BASOPHIL % 0.5 % (0.0-2.0); EOSINOPHIL % 1.9 % (0-5); GRANULOCYTE % 57.1 % (42.2-75.2); MEAN CORPUSCULAR HGB 27.3 PG (27.0-31.0); MEAN CORPUSCULAR HGB CONC 31.5 G/DL (33.0-37.0); MEAN CORPUSCULAR VOLUME 86.7 FL (81.0-99.0); MEAN PLATELET VOLUME 9.1 FL (7.4-10.4); PLATELET COUNT 327 /CUMM (130-400); RED BLOOD CELL CT 4.04 /CUMM (4.20-5.40); WHITE BLOOD CELL COUNT 7.7 /CUMM (4.8-10.8)
--- NOTE | 2017-09-19 08:39 | PN- Pulmonary ---
Subjective HPI/Critical Care Issues: The patient is awake and alert. She is afebrile on steroids. She still has a congested cough. There is no report of hemoptysis. Objective Current Medications: Current Medications Sig/Marvin Start time Last Medication Dose Route Stop Time Status Admin Acetaminophen 650 MG .STK-MED ONE 09/18 0840 DC PO 09/18 0841 Acetaminophen 650 MG Q6P PRN 09/16 2215 AC 09/18 PO 0844 Alprazolam 0.25 MG BID PRN 09/16 2145 AC 09/17 PO 09/23 2144 1717 Ampicillin Sodium/ 1,500 MG Q6H 09/17 2000 AC 09/19 Sulbactam Sodium IV 0807 Sodium Chloride 100 ML Codeine 120 MG Q8 PRN 09/16 214 AC 09/18 PO 1928 Dipyridamole/Aspirin 1 CAP BID 09/16 2300 AC 09/19 PO 0801 Doxycycline Hyclate 100 MG BID 09/17 2100 AC 09/19 PO 0803 Famotidine 20 MG BID 09/16 213 AC 09/19 PO 0801 Furosemide 20 MG DAILY 09/18 0900 AC 09/19 PO 0801 Gabapentin 300 MG TID 09/16 2138 AC 09/19 PO 0801 Heparin Sodium 5,000 UNIT Q8 09/17 06 AC 09/19 (Porcine) SC 0555 Insulin Aspart 0 TIDAC/HS 09/17 0819 AC 09/19 SC 0756 Insulin Detemir 8 UNITS BID 09/18 0900 AC 09/19 SC 0800 Lacosamide 50 MG BID 09/16 213 AC 09/18 PO 2059 Lisinopril 10 MG DAILY 09/18 0900 AC 09/19 PO 0802 Metoclopramide HCl 10 MG TIDAC 09/17 0800 AC 09/19 PO 0800 Mycophenolate Mofetil 750 MG BID 09/16 2138 AC 09/19 PO 0804 Ondansetron HCl 4 MG Q6P PRN 09/16 221 AC IV Pravastatin Sodium 40 MG 1700 09/17 1700 AC 09/18 PO 1656 Prednisone 5 MG DAILY 09/17 0900 AC 09/19 PO 0801 Tacrolimus 1.5 MG BID 09/16 2145 AC 09/19 PO 0803 Tiotropium Paradox 1 PUF DAILY 09/18 1302 AC 07/25 INH 0805 Vital Signs & I&O Last 24 Hrs of Vitals and I&O: Vital Signs Date Time Temp Pulse Resp B/P B/P Pulse O2 O2 Flow FiO2 Mean Ox Delivery Rate 09/19 0802 72 110/62 09/19 0626 98.0 72 18 118/64 93 Nasal Cannula 09/18 2229 98.3 79 14 142/94 94 09/18 2019 Nasal 3.0L Cannula 09/18 1600 Nasal 3.0L Cannula 09/18 1417 98.2 78 18 94/56 90 Nasal 3.0L Cannula 09/18 1000 150/82 09/18 0849 122/64 Intake & Output 09/19 1600 09/19 0800 09/19 0000 Intake Total 360 440 Output Total Balance 360 440 Intake, IV 200 200 Intake, Oral 160 240 Patient 127 lb Weight Physical Exam General Appearance: no apparent distress, alert, awake, comfortable Head: atraumatic, normal appearance Neck: supple Respiratory: bilateral crackles and ronchi Cardiovascular: regular rate/rhythm Gastrointestinal: normal bowel sounds, soft, non-tender Extremities: no edema Skin: intact, normal color, warm/dry Results Last 24 Hrs of Lab Results: Laboratory Tests 09/19/17 0620: Anion Gap 10, Estimated GFR 58 L, BUN/Creatinine Ratio 27.0 H, Magnesium 2.0, CBC w Diff NO MAN DIFF REQ, RBC 4.04 L, MCV 86.7, MCH 27.3, MCHC 31.5 L, RDW 19.0 H, MPV 9.1, Gran % 57.1, Lymphocytes % 30.2, Monocytes % 10.3 H, Eosinophils % 1.9, Basophils % 0.5, Absolute Granulocytes 4.4, Absolute Lymphocytes 2.3, Absolute Monocytes 0.8 H, Absolute Eosinophils 0.1, Absolute Basophils 0 09/18/17 1540: ESR Westergren 28 H Impression/Plan Impression/Plan Impression/Plan: 1. Pneumonia - CT scan is consistent with infectious bronchiolitis. 2. Gastroparesis and possible aspiration. 3. History of chronic bronchiectasis post renal transplant, noted since 2007. 4. Severe COPD, most recently demonstrated on pulmonary function testing done in June 2017. 5. Chronic hypoxemic respiratory failure secondary to severe COPD and bronchiectasis. 6. History of renal transplant in 2007, on immunosuppressive therapy. 7. History of stroke and TIA. 8. Seizure disorder. 9. Insulin dependent diabetes. 10. Chronic pain, on opiates. 11. Right third toe ulcer. Recommendations: * Continue Unasyn and doxycycline per ID. * Follow-up cultures. * Continue nebs/total respiratory care. * Spiriva 1 inhalation every morning. * Taper oxygen down for saturations greater than 92%. * Follow-up echocardiogram results. * Osteomyelitis workup per primary team and ID. * Continue all supportive care. * DVT prophylaxis at all times.
--- NOTE | 2017-09-19 08:50 | Event Note ---
Event Note Event Note: S- Went to talk with the patient this morning about a brief run of unsustained v -tach she had overnight. During this discussion she inquired about whether defibrillation in the setting of sustained V-tach would be consider resuscitation, and I informed her that it would, as would measures such as chest compressions. The patient did not realize that those measures were considered resuscitation, and expressed a desire to be resuscitated but not to be intubated if the situation were to come to it. B- The patient was admitted with code status DNR/DNI A- The patient expressed a desire to be resuscitated in the event that lifesaving measures were required. R- Changed the patient's code status to DNI
[2017-09-19 10:00] VITALS: BP 110/74
--- NOTE | 2017-09-19 11:51 | PN- Nephrology ---
Assessment/Plan Nephrology Assessment: CKD s/p LRT 10 yrs ago. Cr stable at baseline. On antibiotics for pneumonia getting better. Vtach last night await Dr. Ledesma's assessment Continue transplant meds. Ashok Grider MD Suggestion: . Subjective Subjective: Pt feels well had 5 and 7 beat run of V tach Objective Vital Signs and I&Os F NAD 110/74 74 98 Lungs bilat rhonchi Cor RRR Abd soft N/T Ext neg edema Results Pertinent Lab Results: Laboratory Tests 09/19 09/18 0620 1540 Chemistry Sodium (137 - 145 mmol/L) 136 L Potassium (3.5 - 5.1 mmol/L) 4.9 Chloride (98 - 107 mmol/L) 94 L Carbon Dioxide (22 - 30 mmol/L) 31 H Anion Gap (5 - 16) 10 BUN (7 - 17 mg/dL) 27 H Creatinine (0.5 - 1.0 mg/dL) 1.0 Estimated GFR (>60 ml/min) 58 L BUN/Creatinine Ratio (7 - 25 %) 27.0 H Magnesium (1.6 - 2.3 mg/dL) 2.0 Hematology CBC w Diff NO MAN DIFF REQ WBC (4.8 - 10.8 /CUMM) 7.7 RBC (4.20 - 5.40 /CUMM) 4.04 L Hgb (12.0 - 16.0 G/DL) 11.0 L Hct (37 - 47 %) 35.0 L MCV (81.0 - 99.0 FL) 86.7 MCH (27.0 - 31.0 PG) 27.3 MCHC (33.0 - 37.0 G/DL) 31.5 L RDW (11.5 - 14.5 %) 19.0 H Plt Count (130 - 400 /CUMM) 327 MPV (7.4 - 10.4 FL) 9.1 Gran % (42.2 - 75.2 %) 57.1 Lymphocytes % (20.5 - 51.1 %) 30.2 Monocytes % (1.7 - 9.3 %) 10.3 H Eosinophils % (0 - 5 %) 1.9 Basophils % (0.0 - 2.0 %) 0.5 Absolute Granulocytes (1.4 - 6.5 /CUMM) 4.4 Absolute Lymphocytes (1.2 - 3.4 /CUMM) 2.3 Absolute Monocytes (0.10 - 0.60 /CUMM) 0.8 H Absolute Eosinophils (0.0 - 0.7 /CUMM) 0.1 Absolute Basophils (0.0 - 0.2 /CUMM) 0 ESR Westergren (0 - 20 MM) 28 H 09/18 09/17 0619 0635 Chemistry Sodium (137 - 145 mmol/L) 137 133 L Potassium (3.5 - 5.1 mmol/L) 4.2 4.4 Chloride (98 - 107 mmol/L) 94 L 96 L Carbon Dioxide (22 - 30 mmol/L) 30 30 Anion Gap (5 - 16) 13 7 BUN (7 - 17 mg/dL) 21 H 16 Creatinine (0.5 - 1.0 mg/dL) 1.0 0.7 Estimated GFR (>60 ml/min) 58 L > 60 BUN/Creatinine Ratio (7 - 25 %) 21.0 22.9 Magnesium (1.6 - 2.3 mg/dL) 1.7 1.7 Troponin I (< 0.11 ng/ml) < 0.01 Hematology CBC w Diff NO MAN DIFF REQ NO MAN DIFF REQ WBC (4.8 - 10.8 /CUMM) 8.2 6.9 RBC (4.20 - 5.40 /CUMM) 4.13 L 3.83 L Hgb (12.0 - 16.0 G/DL) 11.2 L 10.4 L Hct (37 - 47 %) 35.4 L 32.7 L MCV (81.0 - 99.0 FL) 85.8 85.5 MCH (27.0 - 31.0 PG) 27.1 27.3 MCHC (33.0 - 37.0 G/DL) 31.7 L 31.9 L RDW (11.5 - 14.5 %) 19.0 H 19.1 H Plt Count (130 - 400 /CUMM) 346 332 MPV (7.4 - 10.4 FL) 8.8 8.6 Gran % (42.2 - 75.2 %) 54.9 66.1 Lymphocytes % (20.5 - 51.1 %) 30.0 21.0 Monocytes % (1.7 - 9.3 %) 12.9 H 11.7 H Eosinophils % (0 - 5 %) 1.8 0.8 Basophils % (0.0 - 2.0 %) 0.4 0.4 Absolute Granulocytes (1.4 - 6.5 /CUMM) 4.5 4.6 Absolute Lymphocytes (1.2 - 3.4 /CUMM) 2.5 1.5 Absolute Monocytes (0.10 - 0.60 /CUMM) 1.1 H 0.8 H Absolute Eosinophils (0.0 - 0.7 /CUMM) 0.2 0.1 Absolute Basophils (0.0 - 0.2 /CUMM) 0 0 09/17 09/16 09/16 0100 2323 2114 Chemistry Lactic Acid Cancelled Troponin I (< 0.11 ng/ml) < 0.01 Toxicology Urine Opiates Screen (>2000 NG/ML) > 4000.00 H Methadone Screen (>300 NG/ML) < 40 Barbiturate Screen (>200 NG/ML) < 60 Ur Phencyclidine Scrn (>25 NG/ML) < 6.00 Amphetamines Screen (>1000 NG/ML) < 100 U Benzodiazepines Scrn (>200 NG/ML) < 85 Urine Cocaine Screen (>300 NG/ML) < 50 Urine Cannabis Screen (>50 NG/ML) < 5.00 Urines Urine Color (YEL,AMB,STR) YEL Urine Clarity (CLEAR) CLEAR Urine pH (5.0 - 8.0) 6.5 Ur Specific [place] (1.001 - 1.035) 1.025 Urine Protein (NEG,<30 MG/DL) TRACE H Urine Ketones (NEG) NEG Urine Nitrite (NEG) NEG Urine Bilirubin (NEG) NEG Urine Urobilinogen (0.1 - 1.0 EU/dl) 0.2 Ur Leukocyte Esterase (NEG) NEG Ur Microscopic SEDIMENT EXAMINED Urine RBC (0 - 5 /HPF) RARE Urine WBC (0 - 2 /HPF) RARE Ur Epithelial Cells (NONE,FEW) RARE Urine Bacteria (NEG/NONE) RARE H Urine Mucus (FEW,NONE) RARE Urine Hemoglobin (NEG) NEG Urine Glucose (N MG/DL) NEG 09/16 1850 1850 Chemistry Sodium (137 - 145 mmol/L) 134 L Potassium (3.5 - 5.1 mmol/L) 4.7 Chloride (98 - 107 mmol/L) 92 L Carbon Dioxide (22 - 30 mmol/L) 31 H Anion Gap (5 - 16) 11 BUN (7 - 17 mg/dL) 16 Creatinine (0.5 - 1.0 mg/dL) 0.8 Estimated GFR (>60 ml/min) > 60 BUN/Creatinine Ratio (7 - 25 %) 20.0 Glucose (65 - 99 mg/dL) 192 H Lactic Acid (0.7 - 2.1 mmol/L) 0.9 Calcium (8.4 - 10.2 mg/dL) 9.3 Magnesium (1.6 - 2.3 mg/dL) 1.7 Total Bilirubin (0.2 - 1.3 mg/dL) 0.3 AST (14 - 36 U/L) 17 ALT (9 - 52 U/L) 21 Alkaline Phosphatase (<127 U/L) 85 Troponin I (< 0.11 ng/ml) < 0.01 Total Protein (6.3 - 8.2 g/dL) 6.8 Albumin (3.5 - 5.0 g/dL) 3.6 Globulin (1.9 - 4.2 gm/dL) 3.2 Albumin/Globulin Ratio (1.1 - 2.2 %) 1.1 Lipase (23 - 300 U/L) 23 Hematology CBC w Diff NO MAN DIFF REQ WBC (4.8 - 10.8 /CUMM) 6.1 RBC (4.20 - 5.40 /CUMM) 4.51 Hgb (12.0 - 16.0 G/DL) 11.9 L Hct (37 - 47 %) 38.0 MCV (81.0 - 99.0 FL) 84.2 MCH (27.0 - 31.0 PG) 26.4 L MCHC (33.0 - 37.0 G/DL) 31.4 L RDW (11.5 - 14.5 %) 19.1 H Plt Count (130 - 400 /CUMM) 383 MPV (7.4 - 10.4 FL) 8.2 Gran % (42.2 - 75.2 %) 69.6 Lymphocytes % (20.5 - 51.1 %) 18.6 L Monocytes % (1.7 - 9.3 %) 10.3 H Eosinophils % (0 - 5 %) 1.0 Basophils % (0.0 - 2.0 %) 0.5 Absolute Granulocytes (1.4 - 6.5 /CUMM) 4.3 Absolute Lymphocytes (1.2 - 3.4 /CUMM) 1.1 L Absolute Monocytes (0.10 - 0.60 /CUMM) 0.6 Absolute Eosinophils (0.0 - 0.7 /CUMM) 0.1 Absolute Basophils (0.0 - 0.2 /CUMM) 0 Toxicology Serum Alcohol (<10 MG/DL) < 10.0
--- NOTE | 2017-09-19 12:55 | PN- Infect Dx ---
Subjective Subjective: Afebrile on steroids. She had a 4 beat run of V. tach overnight with no symptoms. She feels well, with no chest pain or shortness of breath, though still notes a productive cough. Objective Last 24 Hrs of Vital Signs/I&O Vital Signs Date Time Temp Pulse Resp B/P B/P Pulse O2 O2 Flow FiO2 Mean Ox Delivery Rate 09/19 1000 74 110/74 09/19 0802 72 110/62 09/19 0800 Room Air Room Air 09/19 0626 98.0 72 18 118/64 93 Nasal Cannula 09/18 2229 98.3 79 14 142/94 94 09/18 2019 Nasal 3.0L Cannula 09/18 1600 Nasal 3.0L Cannula 09/18 1417 98.2 78 18 94/56 90 Nasal 3.0L Cannula Intake & Output 09/19 1600 09/19 0800 09/19 0000 Intake Total 360 440 Output Total Balance 360 440 Intake, IV 200 200 Intake, Oral 160 240 Patient 127 lb Weight Physical Exam Other Physical Findings: She appears comfortable in no acute distress Lungs diffuse rhonchi and crackles bilaterally Heart regular rhythm with no murmur Extremities no cyanosis, clubbing or edema Results Last 24 Hours of Lab Results: Laboratory Tests 09/19 09/18 0620 1540 Chemistry Sodium (137 - 145 mmol/L) 136 L Potassium (3.5 - 5.1 mmol/L) 4.9 Chloride (98 - 107 mmol/L) 94 L Carbon Dioxide (22 - 30 mmol/L) 31 H Anion Gap (5 - 16) 10 BUN (7 - 17 mg/dL) 27 H Creatinine (0.5 - 1.0 mg/dL) 1.0 Estimated GFR (>60 ml/min) 58 L BUN/Creatinine Ratio (7 - 25 %) 27.0 H Magnesium (1.6 - 2.3 mg/dL) 2.0 Hematology CBC w Diff NO MAN DIFF REQ WBC (4.8 - 10.8 /CUMM) 7.7 RBC (4.20 - 5.40 /CUMM) 4.04 L Hgb (12.0 - 16.0 G/DL) 11.0 L Hct (37 - 47 %) 35.0 L MCV (81.0 - 99.0 FL) 86.7 MCH (27.0 - 31.0 PG) 27.3 MCHC (33.0 - 37.0 G/DL) 31.5 L RDW (11.5 - 14.5 %) 19.0 H Plt Count (130 - 400 /CUMM) 327 MPV (7.4 - 10.4 FL) 9.1 Gran % (42.2 - 75.2 %) 57.1 Lymphocytes % (20.5 - 51.1 %) 30.2 Monocytes % (1.7 - 9.3 %) 10.3 H Eosinophils % (0 - 5 %) 1.9 Basophils % (0.0 - 2.0 %) 0.5 Absolute Granulocytes (1.4 - 6.5 /CUMM) 4.4 Absolute Lymphocytes (1.2 - 3.4 /CUMM) 2.3 Absolute Monocytes (0.10 - 0.60 /CUMM) 0.8 H Absolute Eosinophils (0.0 - 0.7 /CUMM) 0.1 Absolute Basophils (0.0 - 0.2 /CUMM) 0 ESR Westergren (0 - 20 MM) 28 H Last 24 Hours of Shabbir Results: Blood cultures 2 September 16 negative Stool C. difficile September 18 negative Sputum culture September 18 mixed joey Assessment/Plan ID Impression: Stable, with temperatures and white blood cell count remaining normal, on Unasyn and Doxycycline, Day 3 of treatment for possible bibasilar bronchopneumonia, possibly secondary to aspiration given her episodes of emesis several days prior to admission. She is being evaluated for osteomyelitis of the right third toe secondary to a chronic, nonhealing ulcer on the dorsal aspect of the toe. Suggestion: 1. Follow-up final sputum culture 2. Await MRI of the right foot 3. Continue Unasyn and Doxycycline pending above
[2017-09-19 14:21] VITALS: BP 140/62
--- NOTE | 2017-09-19 17:32 | PN- Cardiology ---
Subjective Subjective: * No chest pain, shortness of breath, lightheadedness or palpitations. * brief run of wide complex tachycardia likely to be SVT with aberracy although NSVT cannot be excluded. Objective Vital Signs and I&Os Vital Signs Date Time Temp Pulse Resp B/P B/P Pulse O2 O2 Flow FiO2 Mean Ox Delivery Rate 09/19 1421 98.3 71 18 140/62 94 Nasal 3.0L Cannula 09/19 1352 71 140/62 09/19 1000 74 110/74 09/19 0802 72 110/62 09/19 0800 Room Air Room Air 09/19 0626 98.0 72 18 118/64 93 Nasal Cannula 09/18 2229 98.3 79 14 142/94 94 09/18 2018 Nasal 3.0L Cannula Intake & Output 09/19 1600 09/19 0800 09/19 0000 09/18 1600 09/18 0800 09/18 0000 Intake Total 500 360 440 820 470 210 Output Total 500 Balance 500 360 440 820 -30 210 Intake, IV 200 200 220 110 110 Intake, Oral 500 160 240 600 360 100 Number 2 Bowel Movements Output, Urine 500 Patient 127 lb 127 lb Weight Weight Bed scale Measurement Method Physical Exam: General: WD/WN female in NAD; alert and oriented x 3 HEENT: NC/AT, Left eye reactive to light with EOMI Neck: no JVD, no carotid bruit Heart: RRR with 2/6 systolic murmur at the LLSB and RUSB Lungs: course crackles bilaterally with upper airway sounds and wheezing Abdomen: soft, NT, +ve bowel sounds Ext: no edema, right toe amp Assessment/Plan Assessment/Plan * Hypertension. This patient was very hypertensive upon initial presentation to the ER. This is possibly due to decreased intake of her medications while experiencing a decreased responsiveness as well as to difficulty keeping her medications down in the setting of vomiting. She likely also had an increase in stress hormones due to her acute illness. Her blood pressure has improved although it is not in the ideal range. In consideration of her outflow tract obstruction this patient will do better with a slower heart rate and minimal afterload reduction. Begin Metoprolol 25mg BID. * This patient appears to have a primary pulmonary problem without evidence of myocardial ischemia or decompensated CHF. Continue telemetry? Yes
[2017-09-19 21:43] VITALS: BP 114/60
--- NOTE | 2017-09-19 22:18 | Patient Discharge Instructions ---
Discharge Instructions General Discharge Information You were seen/treated for: HYPERTENSIVE URGENCY Pneumonia Watch for these problems: If you feel sudden onset of dizziness, chest pain, shortness of breath, please go to your nearest emergency room. Special Instructions: Please follow up with your service coordinator elderly facility, museum technician, crime investigator special agent and primary care doctor after discharge. Please also make an appointment to follow-up with the [facility] after discharge. Diet Continue normal diet: Yes Recommended Diet: Low Fat Activity Full Activity/No Limits: No Activity Self Limited: Yes Acute Coronary Syndrome Inclusion Criteria At DC or during hospital stay patient has or had the following: ACS DIAGNOSIS No Discharge Core Measures Meds if any: Prescribed or Continued at Discharge Meds if any: NOT Prescribed or Continued at Discharge Congestive Heart Failure Inclusion Criteria At DC or during hospital stay patient has or had the following: CHF DIAGNOSIS No Discharge Core Measures Meds if any: Prescribed or Continued at Discharge Meds if any: NOT Prescribed or Continued at Discharge Cerebrovascular accident Inclusion Criteria At DC or during hospital stay patient has or had the following: CVA/TIA Diagnosis No Discharge Core Measures Meds if any: Prescribed or Continued at Discharge Meds if any: NOT Prescribed or Continued at Discharge Venous thromboembolism Inclusion Criteria VTE Diagnosis No VTE Type NONE VTE Confirmed by (Test) NONE Discharge Core Measures - Per Current guidelines, there needs to be overlap - treatment for the first 5 days of Warfarin therapy. - If discharged on Warfarin prior to 5 days of - overlap therapy, the patient will need to be - assessed for post discharge needs including - *Post discharge parental anticoagulation - *Warfarin and/or parental anticoagulation education - *Follow up date to check INR post discharge At least 5 days overlap therapy as Inpatient No Meds if any: Prescribed or Continued at Discharge Note: Overlap Therapy is Warfarin and Anticoagulant Meds if any: NOT Prescribed or Continued at Discharge
--- NOTE | 2017-09-20 06:18 | PN- Housestaff ---
Aristeo Forbes 09/20/17 0618: Subjective Follow-up For: Hypertensive urgency (resolved) Pneumonia (possible) Renal transplant on immunosuppressants IDDM COPD History of CVA/TIA and seizures Tele-Events Since Last Visit: Normal sinus rhythm Subjective: Patient seen seated comfortably at the bedside. Overnight she complained of several episodes of diffuse, wateray diarrhea, but no fever or dizziness associated with the onset of the episodes. The diarrhea stopped before midnight and the patient is currently without complaints. She has been using her oxygen less throughout the day, and is feeling better in terms of SOB, denying chest pain, abdominal pain, vomiting or changes in urination. Review of Systems Constitutional: Reports: chills. Denies: fever, weakness. Cardiovascular: Denies: chest pain, edema, orthopena, palpitations, peripheral edema. Respiratory: Reports: cough. Denies: short of breath, sputum production. Gastrointestinal: Reports: diarrhea. Denies: abdominal pain, nausea, vomiting. Objective Last 24 Hrs of Vital Signs/I&O Vital Signs Date Time Temp Pulse Resp B/P B/P Pulse O2 O2 Flow FiO2 Mean Ox Delivery Rate 09/20 1600 Nasal 3.0L Cannula 09/20 1430 98.1 73 18 104/66 94 Nasal 3.0L Cannula 09/20 0819 98.4 71 18 90/54 09/20 0800 94 Nasal 3.0L Cannula 09/20 0655 98.4 56 18 110/52 91 Nasal Cannula 09/20 0000 Nasal 3.0L Cannula 09/19 2143 98.4 74 18 114/60 92 Intake & Output 09/20 1600 09/20 0800 09/20 0000 Intake Total 880 530 Output Total Balance 880 530 Intake, IV 400 130 Intake, Oral 480 400 Number 4 Bowel Movements Physical Exam General Appearance: Alert, Oriented X3, Cooperative, No Acute Distress HEENT: Atraumatic, PERRLA, EOMI Neck: Supple, No JVD, No thryomegaly, +2 Carotid Pulse wo Bruit Cardiovascular: Regular Rate, Normal S1, Normal S2, No Murmurs Lungs: Loud ronchi bilaterally Abdomen: Soft, No Tenderness, hypoactive bowel sounds Neurological: Normal Gait, Normal Speech Extremities: No Clubbing, No Cyanosis, No Edema Assessment/Plan Assessment: 51 year old female with history of ESRD s/p renal transplant on immunosuppression, as well as IDDM, HTN, COPD, history of TIA/CVA and seizures. The patient had been seen in the ED for diarrhea 3 days prior to being admitted with weakness, hypertensive urgency and altered mental status in the setting of hypoxia. Pneumonia was clinically suspected and empiric antibiotics were started in the setting of immunosuppression, without fever or white count. This morning , the patient's metoprolol was held in the setting of positive orthostatics and systolic BP of 90. Overnight the patient had a recurrence of watery diarrhea as well, and her white count has remained WNL. BUN and creatinine have both been rising since admission, and in the setting of profuse diarrhea the patient should be provided fluid hydration. Problems: 1. ESRD s/p renal transplant on immunosuppressants 2. Hypertensive urgency (resolved, now orthostatic/hypotensive) 3. Possible pneumonia on immunosuppression 4. IDDM, gastroparesis 5. CORBIN, prerenal 6. History of CVA/TIA and seizures Plan: * Metoprolol 25mg BID, held if SBP < 110 as patient is orthostatic positive * 100mL NS/hour * Follow-up sputum culture, continue Unasyn and doxycycline * Check and replete magnesium as necessary, keep above 2.0 * Follow-up MRI foot * Reglan held in the setting of diarrhea, to continue tomorrow * Continue immunosuppressive regimen s/p renal transplant Code status: DNI Prophylaxis: Heparin sc Labs: BEP & Mg Diet: Low fat diet (gastroparesis) Problem List: 1. Pleural effusion 2. Pneumonia 3. History of diabetes mellitus 4. History of renal transplant 5. Hypoglycemia due to insulin Pain Ratin Pain Location: none Pain Goal: Pain 4 or less Pain Plan: per pathway Tomorrow's Labs & Rationales: BEP & Mg_++ Jesus Salvador 09/20/17 1345: Attending MD Review Statement Attending Statement Attending MD Statement: examined this patient, discuss w/resident/PA/FINGERPRINT TECHNICIAN, agreed w/resident/PA/FINGERPRINT TECHNICIAN, reviewed EMR data (avail), discussed with nursing, discussed with case mgmt Attending Assessment/Plan: 51 year old female with history of ESRD s/p renal transplant 10 yr ago on immunosuppression, as well as IDDM on insulin pump at home, HTN, COPD, history of TIA/CVA and seizures. Presented with N/V. Found to have aspriation Pna on unasyn. Also noted to have orthostatic Hypotension. Short run of SVT vs NSVT on tele. Started on metoprolol. Metoprolol held due to low BP today. Follow up with ID for abx recs. CORBIN- prerenal- pt says she gets diarrhea off and on and has been a chronic problem. give her some iv fluids. will f/u on renal panel tomorrow.
[2017-09-20 06:55] VITALS: BP 110/52
--- NOTE | 2017-09-20 07:57 | PN- Cardiology ---
Subjective Subjective: * Patient reports watery diarrhea last night. No lightheadedness. * sinus rhythm without any dysrhythmias Objective Vital Signs and I&Os Vital Signs Date Time Temp Pulse Resp B/P B/P Pulse O2 O2 Flow FiO2 Mean Ox Delivery Rate 09/20 0655 98.4 56 18 110/52 91 Nasal Cannula 09/20 0000 Nasal 3.0L Cannula 09/19 2143 98.4 74 18 114/60 92 09/19 1421 98.3 71 18 140/62 94 Nasal 3.0L Cannula 09/19 1352 71 140/62 09/19 1000 74 110/74 09/19 0802 72 110/62 09/19 0800 Room Air Room Air Intake & Output 09/20 0800 09/20 0000 09/19 1600 09/19 0800 09/19 0000 09/18 1600 Intake Total 530 500 360 440 820 Output Total Balance 530 500 360 440 820 Intake, IV 130 200 200 220 Intake, Oral 400 500 160 240 600 Number 4 Bowel Movements Patient 127 lb Weight Physical Exam: General: WD/WN female in NAD; alert and oriented x 3 HEENT: NC/AT, Left eye reactive to light with EOMI Neck: no JVD, no carotid bruit Heart: RRR with 2/6 systolic murmur at the LLSB and RUSB Lungs: course crackles bilaterally with upper airway sounds and wheezing Abdomen: soft, NT, +ve bowel sounds Ext: no edema, right toe amp Assessment/Plan Assessment/Plan * Hypertension. This patient was very hypertensive upon initial presentation to the ER. This is possibly due to decreased intake of her medications while experiencing a decreased responsiveness as well as to difficulty keeping her medications down in the setting of vomiting. She likely also had an increase in stress hormones due to her acute illness. Her blood pressure has improved although it is not in the ideal range. In consideration of her outflow tract obstruction this patient will do better with a slower heart rate and minimal afterload reduction. Please give Metoprolol 25mg BID and only hold for a heart rate less than 50bpm or BP less than 90mmHg. * This patient appears to have a primary pulmonary problem without evidence of myocardial ischemia or decompensated CHF. Continue telemetry? Yes
--- NOTE | 2017-09-20 08:55 | MRI REPORT ---
EXAMINATION: MR FOOT WITHOUT CONTRAST, RIGHT CLINICAL INFORMATION: Osteomyelitis. COMPARISON: Radiographs 09/17/2017. TECHNIQUE: MRI without contrast was performed on the right foot. FINDINGS: Postsurgical changes with resection of the 4th toe and the distal 5th metatarsal. Mild subcutaneous edema at the lateral aspect of the forefoot. No abscess. No evidence of osteomyelitis. Nonspecific edema along the dorsum of the foot and diffuse fatty atrophy of the intrinsic muscles of the foot. IMPRESSION: No evidence of osteomyelitis.
--- NOTE | 2017-09-20 09:28 | PN- Pulmonary ---
Subjective HPI/Critical Care Issues: The patient is awake and alert. She continues to have a congested cough. She does however feel better noting she is less short of breath. The patient had one episode of watery diarrhea last evening. Objective Current Medications: Current Medications Sig/Marvin Start time Last Medication Dose Route Stop Time Status Admin Acetaminophen 650 MG Q6P PRN 09/16 2215 AC 09/18 PO 0844 Alprazolam 0.25 MG BID PRN 09/16 2144 AC 09/17 PO 09/23 2144 1717 Ampicillin Sodium/ 1,500 MG Q6H 09/17 2000 AC 09/20 Sulbactam Sodium IV 0817 Sodium Chloride 100 ML Codeine 120 MG Q8 PRN 09/16 214 AC 09/18 PO 1928 Dipyridamole/Aspirin 1 CAP BID 09/16 2300 AC 09/20 PO 0817 Doxycycline Hyclate 100 MG BID 09/17 2100 AC 09/20 PO 0817 Famotidine 20 MG BID 09/16 2138 AC 09/20 PO 0817 Gabapentin 300 MG TID 09/16 2138 AC 09/20 PO 0817 Heparin Sodium 5,000 UNIT Q8 09/17 0600 AC 09/20 (Porcine) SC 0540 Insulin Aspart 0 TIDAC/HS 09/17 0819 AC 09/20 SC 0815 Insulin Detemir 6 UNITS AT BEDTIME 09/20 2100 AC SC Insulin Detemir 8 UNITS 0900 09/20 0900 AC SC Insulin Detemir 8 UNITS BID 09/18 0900 DC 09/20 SC 0816 Lacosamide 50 MG BID 09/16 2138 AC 09/20 PO 0819 Loperamide HCl 2 MG ONE ONE 09/19 1830 DC PO 09/19 1831 Metoclopramide HCl 10 MG TIDAC 09/17 0800 DC 09/19 PO 1726 Metoprolol Tartrate 25 MG BID 09/19 1339 AC 09/19 PO 1352 Mycophenolate Mofetil 750 MG BID 09/16 2137 AC 09/20 PO 0818 Ondansetron HCl 4 MG Q6P PRN 09/16 221 AC IV Pravastatin Sodium 40 MG 1700 09/17 1700 AC 09/19 PO 1726 Prednisone 5 MG DAILY 09/17 0900 AC 09/20 PO 0817 Tacrolimus 1.5 MG BID 09/16 214 AC 09/20 PO 0817 Tiotropium Colton 1 PUF DAILY 09/18 1302 AC 09/20 INH 0818 Vital Signs & I&O Last 24 Hrs of Vitals and I&O: Vital Signs Date Time Temp Pulse Resp B/P B/P Pulse O2 O2 Flow FiO2 Mean Ox Delivery Rate 09/20 0819 98.4 71 18 90/54 09/20 0655 98.4 56 18 110/52 91 Nasal Cannula 09/20 0000 Nasal 3.0L Cannula 09/19 2143 98.4 74 18 114/60 92 09/19 1421 98.3 71 18 140/62 94 Nasal 3.0L Cannula 09/19 1352 71 140/62 09/19 1000 74 110/74 Intake & Output 09/20 1600 09/20 0800 09/20 0000 Intake Total 530 Output Total Balance 530 Intake, IV 130 Intake, Oral 400 Number 4 Bowel Movements Physical Exam General Appearance: no apparent distress, alert, awake, comfortable Head: atraumatic, normal appearance Neck: supple Respiratory: bilateral crackles and ronchi Cardiovascular: regular rate/rhythm Gastrointestinal: normal bowel sounds, soft, non-tender Extremities: no edema Skin: intact, normal color, warm/dry Results Last 24 Hrs of Lab Results: Laboratory Tests 09/20/17 0852: Sodium Pending, Potassium Pending, Chloride Pending, Carbon Dioxide Pending, Anion Gap Pending, BUN Pending, Creatinine Pending, BUN/Creatinine Ratio Pending , Magnesium Pending Last 24 Hrs of Micro Results: Sputum positive for yeast. Diagnostic Data Radiology Findings: MRI of the foot is negative for evidence of osteomyelitis. Impression/Plan Impression/Plan Impression/Plan: 1. Pneumonia - CT scan is consistent with infectious bronchiolitis. 2. Gastroparesis and possible aspiration. 3. History of chronic bronchiectasis post renal transplant, noted since 2007. 4. Severe COPD, most recently demonstrated on pulmonary function testing done in June 2017. 5. Chronic hypoxemic respiratory failure secondary to severe COPD and bronchiectasis. 6. History of renal transplant in 2007, on immunosuppressive therapy. 7. History of stroke and TIA. 8. Seizure disorder. 9. Insulin dependent diabetes. 10. Chronic pain. 11. Right third toe ulcer, no evidence of osteomyelitis on MRI. Recommendations: * Continue Unasyn and doxycycline per ID. * Continue nebs/total respiratory care. * Spiriva 1 inhalation every morning. * Taper oxygen down for saturations greater than 92%. * Continue all supportive care. * DVT prophylaxis at all times. * The patient will benefit from going to the COPD clinic post discharge. I have discussed this with the patient she is agreeable to proceed with the recommendation.
[2017-09-20] MEDS ORDERED: SPIRIVA18 MCG INH (09:30)
--- NOTE | 2017-09-20 11:16 | PN- Nephrology ---
Assessment/Plan Nephrology Assessment: Pt s/p transplant. here with pneumonia getting better. Cr at baseline. continue her immunosupressive medications (transplant). Ashok Grider MD Suggestion: . Subjective Subjective: Pt comfortable. Low BS this morning drinking orange juice. Objective Vital Signs and I&Os F NAD 90/54 71 98.4 Lungs bilateral rhonchi Cor RRR Abd soft N/T Ext neg edema Results Pertinent Lab Results: Laboratory Tests 09/20 09/19 09/18 0852 0620 1540 Chemistry Sodium (137 - 145 mmol/L) 136 L 136 L Potassium (3.5 - 5.1 mmol/L) 4.3 4.9 Chloride (98 - 107 mmol/L) 95 L 94 L Carbon Dioxide (22 - 30 mmol/L) 31 H 31 H Anion Gap (5 - 16) 9 10 BUN (7 - 17 mg/dL) 41 H 27 H Creatinine (0.5 - 1.0 mg/dL) 1.1 H 1.0 Estimated GFR (>60 ml/min) 52 L 58 L BUN/Creatinine Ratio (7 - 25 %) 37.3 H 27.0 H Magnesium (1.6 - 2.3 mg/dL) 2.1 2.0 Hematology CBC w Diff NO MAN DIFF REQ WBC (4.8 - 10.8 /CUMM) 7.7 RBC (4.20 - 5.40 /CUMM) 4.04 L Hgb (12.0 - 16.0 G/DL) 11.0 L Hct (37 - 47 %) 35.0 L MCV (81.0 - 99.0 FL) 86.7 MCH (27.0 - 31.0 PG) 27.3 MCHC (33.0 - 37.0 G/DL) 31.5 L RDW (11.5 - 14.5 %) 19.0 H Plt Count (130 - 400 /CUMM) 327 MPV (7.4 - 10.4 FL) 9.1 Gran % (42.2 - 75.2 %) 57.1 Lymphocytes % (20.5 - 51.1 %) 30.2 Monocytes % (1.7 - 9.3 %) 10.3 H Eosinophils % (0 - 5 %) 1.9 Basophils % (0.0 - 2.0 %) 0.5 Absolute Granulocytes (1.4 - 6.5 /CUMM) 4.4 Absolute Lymphocytes (1.2 - 3.4 /CUMM) 2.3 Absolute Monocytes (0.10 - 0.60 /CUMM) 0.8 H Absolute Eosinophils (0.0 - 0.7 /CUMM) 0.1 Absolute Basophils (0.0 - 0.2 /CUMM) 0 ESR Westergren (0 - 20 MM) 28 H 09/18 09/18 0619 0315 Chemistry Sodium (137 - 145 mmol/L) 137 Potassium (3.5 - 5.1 mmol/L) 4.2 Chloride (98 - 107 mmol/L) 94 L Carbon Dioxide (22 - 30 mmol/L) 30 Anion Gap (5 - 16) 13 BUN (7 - 17 mg/dL) 21 H Creatinine (0.5 - 1.0 mg/dL) 1.0 Estimated GFR (>60 ml/min) 58 L BUN/Creatinine Ratio (7 - 25 %) 21.0 Magnesium (1.6 - 2.3 mg/dL) 1.7 Hematology CBC w Diff NO MAN DIFF REQ WBC (4.8 - 10.8 /CUMM) 8.2 RBC (4.20 - 5.40 /CUMM) 4.13 L Hgb (12.0 - 16.0 G/DL) 11.2 L Hct (37 - 47 %) 35.4 L MCV (81.0 - 99.0 FL) 85.8 MCH (27.0 - 31.0 PG) 27.1 MCHC (33.0 - 37.0 G/DL) 31.7 L RDW (11.5 - 14.5 %) 19.0 H Plt Count (130 - 400 /CUMM) 346 MPV (7.4 - 10.4 FL) 8.8 Gran % (42.2 - 75.2 %) 54.9 Lymphocytes % (20.5 - 51.1 %) 30.0 Monocytes % (1.7 - 9.3 %) 12.9 H Eosinophils % (0 - 5 %) 1.8 Basophils % (0.0 - 2.0 %) 0.4 Absolute Granulocytes (1.4 - 6.5 /CUMM) 4.5 Absolute Lymphocytes (1.2 - 3.4 /CUMM) 2.5 Absolute Monocytes (0.10 - 0.60 /CUMM) 1.1 H Absolute Eosinophils (0.0 - 0.7 /CUMM) 0.2 Absolute Basophils (0.0 - 0.2 /CUMM) 0 Serology C. difficile Tox B Gene Pending
--- NOTE | 2017-09-20 11:31 | PN- Infect Dx ---
Subjective Subjective: Afebrile on steroids. She feels well with no new complaints. She continues to report dizziness, which she attributes to her hypoglycemia. Objective Last 24 Hrs of Vital Signs/I&O Vital Signs Date Time Temp Pulse Resp B/P B/P Pulse O2 O2 Flow FiO2 Mean Ox Delivery Rate 09/20 0819 98.4 71 18 90/54 09/20 0800 94 Nasal 3.0L Cannula 09/20 0655 98.4 56 18 110/52 91 Nasal Cannula 09/20 0000 Nasal 3.0L Cannula 09/19 2143 98.4 74 18 114/60 92 09/19 1421 98.3 71 18 140/62 94 Nasal 3.0L Cannula 09/19 1352 71 140/62 Intake & Output 09/20 1600 09/20 0800 09/20 0000 Intake Total 530 Output Total Balance 530 Intake, IV 130 Intake, Oral 400 Number 4 Bowel Movements Physical Exam Other Physical Findings: She appears comfortable in no acute distress Lungs diffuse rhonchi and crackles unchanged Heart regular rhythm with no murmur Extremities no cyanosis, clubbing or edema Results Last 24 Hours of Lab Results: Laboratory Tests 09/21 851 Chemistry Sodium (137 - 145 mmol/L) 136 L Potassium (3.5 - 5.1 mmol/L) 4.3 Chloride (98 - 107 mmol/L) 95 L Carbon Dioxide (22 - 30 mmol/L) 31 H Anion Gap (5 - 16) 9 BUN (7 - 17 mg/dL) 41 H Creatinine (0.5 - 1.0 mg/dL) 1.1 H Estimated GFR (>60 ml/min) 52 L BUN/Creatinine Ratio (7 - 25 %) 37.3 H Magnesium (1.6 - 2.3 mg/dL) 2.1 Last 24 Hours of Shabbir Results: Sputum culture September 18 mixed joey with scant growth of yeast Recent Imaging Studies: MRI of the right foot September 19 no evidence of osteomyelitis Assessment/Plan ID Impression: Stable, with temperatures and white blood cell count remaining normal (on steroids), on Unasyn and Doxycycline, Day 4 of treatment for presumed bibasilar bronchopneumonia, possibly secondary to aspiration given her episodes of emesis several days prior to admission. Suggestion: 1. Discontinue Unasyn and Doxycycline 2. Begin Augmentin 875 mg p.o. every 12 hours for 3 more days
--- NOTE | 2017-09-20 13:01 | PN- Diabetes ---
Assessment/Plan Diabetes Assessment: 51 years old lady with a significant past medical history of insulin dependent DM (on insulin pump), COPD (on night time O2 4 L/Min), ESRD (Rt side renal transplant 10 years ago, on Tacrolimus, mycophenolate, and prednisolone), CVA/ TIA and seizures , gasteroparesis, GERD, and neuropathy, was broght to ER for evaluation of loss of appetite, and nausea. Her BP was found to be 208/92. She was admitted to tele for hypertensive urgency. Due to the hospital policy, insulin pump has been held. She is on Levemir 8 units twice a day; Novolog coverage before meals and another Novolog coverage at bedtime: Before Each Meal: Bolus Insulin: Novolog < 80 mg/dl: no coverage 80-100 mg/dl: 2 units 101-120 mg/dl: 2 units 121-150 mg/dl: 2 units 151-200 mg/dl: 3 units 201-250 mg/dl: 4 units 251-300 mg/dl: 5 units 301-350 mg/dl: 6 units 351-400 mg/dl: 8 units > 400 mg/dl: 10 units Bedtime: Bolus Insulin: Novolog < 80 mg/dl: No coverage 80-100 mg/dl: no coverage 101-120 mg/dl: no coverage 121-150 mg/dl: no coverage 151-200 mg/dl: no coverage 201-250 mg/dl: no covearge 251-300 mg/dl: 2 units 301-350 mg/dl: 3 units 351-400 mg/dl: 4 units > 400 mg/dl: 5 units Her FSGs were 154, 154, 98, 283 and 105. She stated that she had to have snacks at bedtime in order to keep her am FSG 105. Plan: 1. further decrease Levemir to 8 units am and 6 units at bedtime; 2. continue the current Novolog coverage before meals and Novolog coverage at bedtime; 3. monitor FSGs; 4.if she is medically stable for discharge, she will go back on her meditronic insulin pump--- I have adjsuted her basal rate as her basal insulin requirement has decreased. Basal rate: midnight 0.55units per hour; 3 am 0.75 units per hour; 6 am 0.75 units per hour 12 pm 0.75 units per hour 4 pm 1.0 units per hour 22 pm 0.65 units per hour IC ratio 16 grams; insulin sensitivity 70-100 mg/dl Target: 110-120 mg/dl Active insulin time: 4 hours 5. f/u with Dr. Morin in the office after discharge. Plan: plan as above. Subjective Subjective: She feels okay this morning Objective Last 24 Hrs of Vital Signs/I&O Vital Signs Date Time Temp Pulse Resp B/P B/P Pulse O2 O2 Flow FiO2 Mean Ox Delivery Rate 09/20 0819 98.4 71 18 90/54 09/20 0800 94 Nasal 3.0L Cannula 09/20 0655 98.4 56 18 110/52 91 Nasal Cannula 09/20 0000 Nasal 3.0L Cannula 09/19 2143 98.4 74 18 114/60 92 09/19 1421 98.3 71 18 140/62 94 Nasal 3.0L Cannula 09/19 1352 71 140/62 Intake & Output 09/20 1600 09/20 0800 09/20 0000 Intake Total 530 Output Total Balance 530 Intake, IV 130 Intake, Oral 400 Number 4 Bowel Movements Findings Pertinent Lab/Shabbir Results: Laboratory Tests 09/21 851 Chemistry Sodium (137 - 145 mmol/L) 136 L Potassium (3.5 - 5.1 mmol/L) 4.3 Chloride (98 - 107 mmol/L) 95 L Carbon Dioxide (22 - 30 mmol/L) 31 H Anion Gap (5 - 16) 9 BUN (7 - 17 mg/dL) 41 H Creatinine (0.5 - 1.0 mg/dL) 1.1 H Estimated GFR (>60 ml/min) 52 L BUN/Creatinine Ratio (7 - 25 %) 37.3 H Magnesium (1.6 - 2.3 mg/dL) 2.1
[2017-09-20 14:30] VITALS: BP 104/66
[2017-09-20 22:40] VITALS: BP 144/82
[2017-09-20 23:21] LABS: C.DIFFICILE TOXIN B QL PCR NOT DETECTED (NOT DETECTED)
[2017-09-21 06:12] VITALS: BP 140/62
--- NOTE | 2017-09-21 06:34 | PN- Housestaff ---
Aristeo Forbes 09/21/17 0634: Subjective Follow-up For: Hypertensive urgency (resolved) Pneumonia (possible) Renal transplant on immunosuppressants IDDM Hypoglycemic episodes COPD History of CVA/TIA and seizures Tele-Events Since Last Visit: Normal sinus rhythm overnight, with sinus bradycardia at rate of 57 bpm the lowest Subjective: Patient seen resting comfortably in the bed. She is quite unhappy this morning because of the IV fluid we are providing her. She feels that the IV limits her movement, and states that her baseline creatinine is 1.1 there is no need for extra hydration. The patient's BUN has still been rising above baseline, in the setting of diarrhea, but patient does have good p.o. intake and is very eager to be discharged home today. Patient denies chest pain, shortness of breath, palpitations, or dizziness. She had more diarrhea last night, but denies abdominal pain or fever. Review of Systems Constitutional: Denies: chills, fever, malaise, weakness. Cardiovascular: Denies: chest pain, orthopena, peripheral edema. Respiratory: Reports: cough, sputum production. Denies: short of breath. Gastrointestinal: Denies: abdominal pain, nausea, vomiting. Objective Last 24 Hrs of Vital Signs/I&O Vital Signs Date Time Temp Pulse Resp B/P B/P Pulse O2 O2 Flow FiO2 Mean Ox Delivery Rate 09/21 0612 97.6 53 20 140/62 94 Nasal Cannula 09/21 0000 Nasal 3.0L Cannula 09/20 2240 98.5 84 20 144/82 94 Room Air 09/20 2016 80 18 144/82 09/20 1600 Nasal 3.0L Cannula 09/20 1430 98.1 73 18 104/66 94 Nasal 3.0L Cannula 09/20 0819 98.4 71 18 90/54 09/20 0800 94 Nasal 3.0L Cannula Intake & Output 09/21 0800 09/21 0000 09/20 1600 Intake Total 120 900 880 Output Total Balance 120 900 880 Intake, IV 300 400 Intake, Oral 120 600 480 Number 2 Bowel Movements Patient 61.689 kg Weight Weight Bed scale Measurement Method Physical Exam General Appearance: Alert, Oriented X3, Cooperative, No Acute Distress HEENT: Atraumatic, PERRLA, EOMI, Mucous Membr. moist/pink Neck: Supple, No JVD, No thryomegaly, +2 Carotid Pulse wo Bruit Cardiovascular: Regular Rate, Normal S1, Normal S2 Lungs: Coarse ronchi bilaterally Abdomen: Normal Bowel Sounds, Soft, No Tenderness Neurological: Normal Gait, Normal Speech Extremities: No Clubbing, No Cyanosis, No Edema Assessment/Plan Assessment: 51 year old female with history of ESRD s/p renal transplant on immunosuppression, as well as IDDM, HTN, COPD, history of TIA/CVA and seizures. The patient had been seen in the ED for diarrhea 3 days prior to being admitted with weakness, hypertensive urgency and altered mental status in the setting of hypoxia. Pneumonia was clinically suspected and empiric antibiotics were started in the setting of immunosuppression, without fever or white count. This morning , the patient's metoprolol was held in the setting of positive orthostatics and systolic BP of 90. Overnight the patient had a recurrence of watery diarrhea as well, and her white count has remained WNL. The patient was hyperkalemic this morning at 5.2, otherwise ready for discharge but will recheck this afternoon. Problems: 1. ESRD s/p renal transplant on immunosuppressants 2. Hypertensive urgency (resolved, now orthostatic/hypotensive) 3. Possible pneumonia on immunosuppression 4. IDDM, gastroparesis 5. CORBIN, prerenal 6. History of CVA/TIA and seizures Plan: * Metoprolol 25mg BID, held if SBP < 90 as patient is orthostatic positive * Normal saline stopped * Unasyn and doxycycline discontinued, patient put on p.o. Augmentin * Check and replete magnesium as necessary, keep above 2.0 * Recheck potassium this afternoon * Continue immunosuppressive regimen s/p renal transplant Code status: DNI Prophylaxis: Heparin sc Labs: BEP & Mg Diet: Low fat diet (gastroparesis) Problem List: 1. Hypertensive urgency 2. Pneumonia 3. Status post kidney transplant 4. History of diabetes mellitus 5. History of renal transplant 6. Orthostatic hypotension Pain Ratin Pain Location: none Pain Goal: Pain 4 or less Pain Plan: per pathway Tomorrow's Labs & Rationales: bep & cbc ModestoKassieportillo 09/21/17 1306: Attending MD Review Statement Attending Statement Attending MD Statement: examined this patient, discuss w/resident/PA/MULTIPLE NEEDLE STITCHER, agreed w/resident/PA/MULTIPLE NEEDLE STITCHER, reviewed EMR data (avail), discussed with nursing, discussed with case mgmt Attending Assessment/Plan: 51 year old female with history of ESRD s/p renal transplant 10 yr ago on immunosuppression, as well as IDDM on insulin pump at home, HTN, COPD, history of TIA/CVA and seizures. Presented with N/V. Found to have aspriation Pna and was started on unasyn. Also noted to have orthostatic Hypotension. Short run of SVT vs NSVT on tele. Started on metoprolol. Metoprolol held due to low BP yesterday. Follow up with ID for abx recs. Aspiration pneumonia- switched to po augmentin yesterday per ID recommendations. CORBIN- prerenal- pt says she gets diarrhea off and on and has been a chronic problem. give her some iv fluids. renal panel better today. Pt drinking more fluids currently. Hyperkalemia- K of 5.2., will recheck in afternoon and if ok will dc her home today. Hypoglycemia today- pt on insulin pump at home. Endo following. resolved after orange juice.
--- NOTE | 2017-09-21 08:24 | PN- Pulmonary ---
Objective Current Medications: Current Medications Sig/Marvin Start time Last Medication Dose Route Stop Time Status Admin Acetaminophen 650 MG Q6P PRN 09/16 2215 AC 09/18 PO 0844 Alprazolam 0.25 MG BID PRN 09/16 2145 AC 09/20 PO 09/23 2144 1708 Amoxicillin/ 875 MG Q12 09/20 2100 AC 09/20 Clavulanate Potassium PO 2015 Ampicillin Sodium/ 1,500 MG Q6H 09/17 2000 DC 09/20 Sulbactam Sodium IV 1422 Sodium Chloride 100 ML Codeine 120 MG Q8 PRN 09/16 2145 AC 09/18 PO 1928 Dextrose 25 GM .STK-MED ONE 09/20 2312 DC IV 09/20 2313 Dextrose 25 GM ONCE ONE 09/20 1030 DC IV 09/20 1031 Dipyridamole/Aspirin 1 CAP BID 09/16 2300 AC 09/20 PO 2015 Doxycycline Hyclate 100 MG BID 09/17 2100 AC 09/20 PO 2018 Famotidine 20 MG BID 09/16 213 AC 09/20 PO 2017 Gabapentin 300 MG TID 09/16 2138 AC 09/20 PO 2017 Heparin Sodium 5,000 UNIT Q8 09/17 0600 AC 09/21 (Porcine) WI 0605 Insulin Aspart 0 TIDAC/HS 09/17 0819 AC 09/20 WI 1938 Insulin Detemir 5 UNITS AT BEDTIME 09/21 2100 [facility] Insulin Detemir 6 UNITS 0900 09/21 0900 AC 09/21 WI 0818 Insulin Detemir 6 UNITS AT BEDTIME 09/20 2100 DC 09/20 WI 2016 Insulin Detemir 8 UNITS 0909/20 0900 [facility] Insulin Detemir 8 UNITS BID 09/18 0900 DC 09/20 WI 0816 Lacosamide 50 MG BID 09/16 2139 AC 09/20 PO 2018 Metoclopramide HCl 10 MG TIDAC 09/21 0800 AC 09/21 PO 0820 Metoprolol Tartrate 25 MG BID 09/19 1339 AC 09/20 PO 2017 Mycophenolate Mofetil 750 MG BID 09/16 2138 AC 09/20 PO 2015 Ondansetron HCl 4 MG Q6P PRN 09/16 2215 AC IV Pravastatin Sodium 40 MG 1700 09/17 1700 AC 09/20 PO 170 Prednisone 5 MG DAILY 09/17 0900 AC 09/20 PO 0817 Sodium Chloride 1,000 ML Q10H 09/20 1115 DC 09/20 IV 09/21 0800 1221 Tacrolimus 1.5 MG BID 09/165 AC 09/20 PO 2018 Tiotropium Nebo 1 PUF DAILY 09/18 1302 AC 09/20 INH 0818 Vital Signs & I&O Last 24 Hrs of Vitals and I&O: Vital Signs Date Time Temp Pulse Resp B/P B/P Pulse O2 O2 Flow FiO2 Mean Ox Delivery Rate 09/21 0612 97.6 53 20 140/62 94 Nasal Cannula 09/21 0000 Nasal 3.0L Cannula 09/20 2240 98.5 84 20 144/82 94 Room Air 09/20 2017 80 18 144/82 09/20 1600 Nasal 3.0L Cannula 09/20 1430 98.1 73 18 104/66 94 Nasal 3.0L Cannula Intake & Output 09/21 1600 09/21 0800 09/21 0000 Intake Total 120 900 Output Total Balance 120 900 Intake, IV 300 Intake, Oral 120 600 Number 2 Bowel Movements Patient 136 lb Weight Weight Bed scale Measurement Method Results Last 24 Hrs of Lab Results: Laboratory Tests 09/21/17 0730: Sodium Pending, Potassium Pending, Chloride Pending, Carbon Dioxide Pending, Anion Gap Pending, BUN Pending, Creatinine Pending, BUN/Creatinine Ratio Pending , Magnesium Pending 09/20/17 0852: Anion Gap 9, Estimated GFR 52 L, BUN/Creatinine Ratio 37.3 H, Magnesium 2.1 Impression/Plan Impression/Plan Recommendations: * Continue Unasyn and doxycycline per ID. * Continue nebs/total respiratory care. * Spiriva 1 inhalation every morning. * Taper oxygen down for saturations greater than 92%. * Continue all supportive care. * DVT prophylaxis at all times. * The patient will benefit from going to the COPD clinic post discharge. I have discussed this with the patient she is agreeable to proceed with the recommendation.
--- NOTE | 2017-09-21 08:29 | PN- Cardiology ---
Subjective Subjective: * No specific complaints. * Metoprolol was held. Objective Vital Signs and I&Os Vital Signs Date Time Temp Pulse Resp B/P B/P Pulse O2 O2 Flow FiO2 Mean Ox Delivery Rate 09/21 0612 97.6 53 20 140/62 94 Nasal Cannula 09/21 0000 Nasal 3.0L Cannula 09/20 2240 98.5 84 20 144/82 94 Room Air 09/20 2017 80 18 144/82 09/21 1599 Nasal 3.0L Cannula 09/20 1430 98.1 73 18 104/66 94 Nasal 3.0L Cannula Intake & Output 09/21 0800 09/21 0000 09/20 1600 09/20 0800 09/20 0000 Intake Total 120 900 880 530 Output Total Balance 120 900 880 530 Intake, IV 300 400 130 Intake, Oral 120 600 480 400 Number 2 4 Bowel Movements Patient 136 lb Weight Weight Bed scale Measurement Method Physical Exam: General: WD/WN female in NAD; alert and oriented x 3 HEENT: NC/AT, Left eye reactive to light with EOMI Neck: no JVD, no carotid bruit Heart: RRR with 2/6 systolic murmur at the LLSB and RUSB Lungs: course crackles bilaterally with upper airway sounds Abdomen: soft, NT, +ve bowel sounds Ext: no edema, right toe amp Assessment/Plan Assessment/Plan * Hypertension. This patient was very hypertensive upon initial presentation to the ER. This is possibly due to decreased intake of her medications while experiencing a decreased responsiveness as well as to difficulty keeping her medications down in the setting of vomiting. She likely also had an increase in stress hormones due to her acute illness. Her blood pressure has improved although it is not in the ideal range. * In consideration of her outflow tract obstruction this patient will do better with a slower heart rate and minimal afterload reduction. Please give Metoprolol 25mg BID and only hold for a heart rate less than 50bpm or BP less than 90mmHg. * This patient appears to have a primary pulmonary problem without evidence of myocardial ischemia or decompensated CHF. Continue telemetry? Yes
[2017-09-21 08:30] VITALS: BP 120/64
[2017-09-21] MEDS ORDERED: AMOX-CLAV 875-1 EACH PO ×2 (09:08→16:07)
[2017-09-21] MEDS ORDERED: METOPROLOL TART25 M1 PO ×2 (09:08→16:07)
--- NOTE | 2017-09-21 09:28 | PN- Infect Dx ---
Subjective Subjective: Afebrile on steroids. She continues to complain of a cough productive of clear to haywood sputum, with no shortness of breath or chest pain. Her blood sugar was again below 50 this morning. Objective Last 24 Hrs of Vital Signs/I&O Vital Signs Date Time Temp Pulse Resp B/P B/P Pulse O2 O2 Flow FiO2 Mean Ox Delivery Rate 09/21 08 64 120/64 09/21 0612 97.6 53 20 140/62 94 Nasal Cannula 09/21 0000 Nasal 3.0L Cannula 09/20 2240 98.5 84 20 144/82 94 Room Air 09/20 2016 80 18 144/82 09/21 1599 Nasal 3.0L Cannula 09/20 1430 98.1 73 18 104/66 94 Nasal 3.0L Cannula Intake & Output 09/21 1600 09/21 0800 09/21 0000 Intake Total 120 900 Output Total Balance 120 900 Intake, IV 300 Intake, Oral 120 600 Number 2 Bowel Movements Patient 136 lb Weight Weight Bed scale Measurement Method Physical Exam Other Physical Findings: She appears comfortable in no acute distress Lungs diffuse rhonchi and crackles Heart regular rhythm with no murmur Extremities no cyanosis, clubbing or edema Results Last 24 Hours of Lab Results: Laboratory Tests 09/21 729 Chemistry Sodium (137 - 145 mmol/L) 134 L Potassium (3.5 - 5.1 mmol/L) 5.2 H Chloride (98 - 107 mmol/L) 97 L Carbon Dioxide (22 - 30 mmol/L) 28 Anion Gap (5 - 16) 9 BUN (7 - 17 mg/dL) 42 H Creatinine (0.5 - 1.0 mg/dL) 1.0 Estimated GFR (>60 ml/min) 58 L BUN/Creatinine Ratio (7 - 25 %) 42.0 H Magnesium (1.6 - 2.3 mg/dL) 2.1 Last 24 Hours of Shabbir Results: No new cultures Assessment/Plan ID Impression: Overall stable, with temperatures and white blood cell count remaining normal ( on steroids), now on Augmentin, Day 5 of treatment for presumed bibasilar bronchopneumonia, possibly secondary to aspiration given her episodes of emesis several days prior to admission. She continues to have problems with hypoglycemia. Suggestion: 1. Continue Augmentin for 2 more days
--- NOTE | 2017-09-21 10:35 | Discharge Summary ---
Visit Information Visit Dates Admission Date: 09/16/17 Discharge Date: 09/21/17 Hospital Course Course Attending Physician: Kranthi Schumacher MD Primary Care Physician: Issa Morin MD Hospital Course: The patient is a 51 years old lady with a significant past medical history of insulin dependent DM (on insulin pump), COPD (on night time O2 4 L/Min), ESRD ( Rt side renal transplant 10 years ago - on Tacrolimus, mycophenolate, and prednisolone), CVA/TIA and seizures (from 3 years ago currently on Lacosamide), gasteroparesis, GERD, and neuropathy who was brought to the ED by her family with CC of generalized weakness and confusion, loss of appetite, and nausea. She had recurrent diarrhea and she used a lot of loperomide, 6 days prior to admission and was seen in [facility] ED and was given ondansetron and discharged to her PCP. Diarrhea improved after that and it stopped 3 days ago. Her family report that she had been lathergic and weak, had poor appetite, and was nauseous. She reported chills and fevers. She had headache (her blood pressuer was 197/94), but no lightheadedness, SOB, or chest pain. She has a history of COPD and has a long history of cough and during the interview she had productive cough, she also complained about neuropathy (she uses 120 mgs of codeine daily). She also had a CVA/TIA in 2014 and from then she had a seizure disorder which began at that point. The patient was admitted to telemetry and put on antibiotics for suspected aspiration pneumonia in the setting of immunosuppressant use and seizure history. Her blood pressure was controlled, and watched closely as she was found to be orthostatic positive. Pulmonology added Spiriva for the patient's COPD. The patient had a brief run of unsustained V-Tach and was started on Metoprolol tartrate 25mg BID. She was gradually weaned off the oxygen during the daytime, but still used the oxygen via nasal cannula overnight. Her diarrhea resumed two days prior to discharge, but the patient remained afebrile and without leukocytosis. Stool was negative for C-dif. At several points throughout her hospitalization, the patient experienced hypoglycemic episodes, which she attributed to the new in-hospital insulin regimen and being off of her insulin pump--she drank large amounts of orange juice to resolve the episodes and her insulin regimen was adjusted accordingly, but plans were to discharge on the insulin pump. The patient's cough and dyspnea continued to resolve and she was switched to oral antibiotics, and prepared for discharge to home. Allergies: Coded Allergies: erythromycin base (From ERYTHROCIN) (NAUSEA 09/13/17) Pertinent Lab Results: MRI foot showed postsurgical changes with resection of the 4th toe and the distal 5th metatarsal. Mild subcutaneous edema at the lateral aspect of the forefoot. No abscess. No evidence of osteomyelitis. Nonspecific edema along the dorsum of the foot and diffuse fatty atrophy of the intrinsic muscles of the foot. Echocardiogram showed: 1. Normal EF of 70% with impaired LV relaxation. 2. Moderate left ventricular hypertrophy. 3. Mild mitral regurgitation with mitral annular calcification. Systolic anterior motion of the anterior leaflet is noted. 4. Trace tricuspid regurgitation. 5. Trace pulmonic regurgitation. 6. Mild aortic sclerosis without stenosis. CT Chest showed: 1. Overall, compared to 07/26/2014, there is worsening tree-in-bud nodularity in both lungs, consistent with infectious bronchiolitis. Also, there is peribronchial consolidation (i.e., bronchopneumonia) in both lower lobes, right worse than left. No pleural effusion. 2. Mild lymphadenopathy within the mediastinum. Disposition Summary Disposition Principal Diagnosis: Pneumonia Additional Diagnosis: Hypertensive urgency, COPD, History of renal transplantation on immunosuppressants, IDDM Discharge Disposition: home or self care Discharge Instructions General Discharge Information Code Status: Do Not Intubate Patient's Diet: Diabetic diet, low-fat Patient's Activity: As tolerated Follow-Up Instructions/Appts: Patient instructed to follow-up with her primary care, litigation claim representative, dot compliance manager, waterproofing mixer and tools administrator about this hospital admission. Medications at Discharge Discharge Medications: Stop taking the following medications: Furosemide (Lasix) 40 MG TABLET ORAL DAILY Continue taking these medications: Codeine Sulfate (Codeine Sulfate) 60 MG TABLET 60 Milligram ORAL THREE TIMES DAILY as needed for PAIN Comments: Last Taken: 09/18/17 Time: 7:00 PM Pravastatin Sodium (Pravachol) 40 MG TABLET 1 Tablet ORAL TAKE AT BEDTIME Comments: Last Taken: 09/21/17 Time: 5:00 PM Prednisone (Prednisone) 5 MG TABLET 1 Tablet ORAL DAILY Comments: Last Taken: 09/21/17 Time: 9:00 AM Tacrolimus (Prograf) 1 MG CAPSULE 1.5 Milligram ORAL TWICE DAILY Comments: Last Taken: 09/21/17 Time: 9:00 AM Mycophenolate Mofetil (Mycophenolate Mofetil) 250 MG CAPSULE 3 Capsule ORAL TWICE DAILY Qty = 540 Comments: Last Taken: 09/21/17 Time: 9:OOAM Gabapentin (Neurontin) 300 MG CAPSULE 1 Capsule ORAL THREE TIMES DAILY Comments: Last Taken: 09/21/17 Time: 12:00 PM Alprazolam (Xanax) 0.25 MG TABLET 1 Tablet ORAL 2 x Daily as needed as needed for ANXIETTY Qty = 60 Comments: Last Taken: 09/20/17 Time: 5:00 PM Metoclopramide HCl (Reglan) 10 MG TABLET 1 Tablet ORAL 4XDAILY Instructions: 30 minutes before meals and bedtime Comments: Last Taken: 09/21/17 Time: 12:00 PM Diphenoxylate HCl/Atropine (Lomotil 2.5-0.025 MG Tablet) 2.5 MG-0.025 MG TABLET 1-2 Tablet ORAL TWICE DAILY as needed for DIARRHEA Comments: NOT GIVEN Dipyridamole W/ Aspirin (Aggrenox 25 MG-200 MG Capsule) 25 MG-200 MG CPMP.12HR 1 Capsule ORAL TWICE DAILY Comments: Last Taken: 09/21/17 Time: 9:00 AM Famotidine (Famotidine) 20 MG TABLET 1 Tablet ORAL TWICE DAILY Comments: Last Taken: 09/21/17 Time: 9:00 AM Ondansetron (Zofran Odt) 4 MG TAB.RAPDIS 1 Tablet SUBLINGUAL THREE TIMES DAILY as needed for NAUSEA Qty = 10 Comments: NOT GIVEN. Lacosamide (Vimpat) 50 MG TABLET 1 Tablet ORAL TWICE DAILY Comments: Last Taken: 09/21/17 Time: 9:00 AM Start taking the following new medications: Amoxicillin/Clavulanate Potass (Amox-Clav 875-125 MG Tablet) 875 MG-125 MG TABLET 875 Milligram ORAL EVERY 12 HOURS Qty = 3 No Refills Instructions: . Comments: Last Taken: 09/21/17 Time: 9:00 am Metoprolol Tartrate (Metoprolol Tartrate) 25 MG TABLET 25 Milligram ORAL TWICE DAILY Qty = 60 No Refills Instructions: . Comments: Last Taken: 09/21/17 Time: 9:00 AM Tiotropium [place] (Spiriva) 18 MCG CAP.W.DEV 1 Puff Inhale through mouth DAILY Qty = 30 No Refills Instructions: . Comments: Last Taken: 09/21/17 Time: 9:00 AM Copies To: Richard VILLA,Arcelia Patel; Marni VILLA,Ashok Kimbrough; Mikel VILLA,Issa Red; Baltazar VILLA PHD,Deejay Gonsalves Attending MD Review Statement Documenting Attending: Kranthi Schumacher MD Other Findings: Discharge in stable condition
--- NOTE | 2017-09-21 11:00 | PN- Nephrology ---
Assessment/Plan Nephrology Assessment: Stable renal function. Cr at baseline (low 1's). Pneumonia better. loose stools predate admission (per patient). Continue transplant medications. Doing better. Okay to go home from my standpoint. Ashok Grider MD Suggestion: . Subjective Subjective: Pt feels well. wants to go home. now on oral antibiotics. Has diarrhea but eating drinking well. Objective Vital Signs and I&Os F NAD 120/64 64 97 Lungs bilat rhonchi (chronic) Cor RRR Abd soft Ext neg edema Results Pertinent Lab Results: 134 / 97 / 42 // 5.2 / 28 / 1.0\
--- NOTE | 2017-09-21 13:42 | PN- Diabetes ---
Assessment/Plan Diabetes Assessment: Patient continues having hypoglycemia on 09/20/2017 despite Levemir was decreased. Her FSGs were 105, 50, 110, 76, 234, 267 and 50. Plan: 1. further decrease Levemir to 6 units am and 5 units at bedtime; 2. continue the current Novolog coverage before meals and Novolog coverage at bedtime; 3. monitor FSGs; 4.if she is medically stable for discharge, she will go back on her meditronic insulin pump--- I have adjsuted her basal rate as her basal insulin requirement has decreased. Basal rate: midnight 0.5 units per hour; 3 am 0.60 units per hour; 6 am 0.60 units per hour 12 pm 0.60 units per hour 4 pm 0.9 units per hour 22 pm 0.50 units per hour IC ratio 16 grams; insulin sensitivity 70-100 mg/dl Target: 110-120 mg/dl Active insulin time: 4 hours 5. f/u with Dr. Morin in the office after discharge. Plan: as above Subjective Subjective: She had two episodes of hypoglycemia on 09/20/2017. Objective Last 24 Hrs of Vital Signs/I&O Vital Signs Date Time Temp Pulse Resp B/P B/P Pulse O2 O2 Flow FiO2 Mean Ox Delivery Rate 09/21 0830 64 120/64 09/21 0800 Room Air Room Air 09/21 0612 97.6 53 20 140/62 94 Nasal Cannula 09/21 0000 Nasal 3.0L Cannula 09/20 2240 98.5 84 20 144/82 94 Room Air 09/20 2017 80 18 144/82 09/20 1600 Nasal 3.0L Cannula 09/20 1430 98.1 73 18 104/66 94 Nasal 3.0L Cannula Intake & Output 09/21 1600 09/21 0800 09/21 0000 Intake Total 120 900 Output Total Balance 120 900 Intake, IV 300 Intake, Oral 120 600 Number 2 Bowel Movements Patient 136 lb Weight Weight Bed scale Measurement Method Findings Pertinent Lab/Shabbir Results: Laboratory Tests 09/21 09/21 0730 0600 Chemistry Sodium (137 - 145 mmol/L) 134 L Potassium (3.5 - 5.1 mmol/L) 5.2 H Chloride (98 - 107 mmol/L) 97 L Carbon Dioxide (22 - 30 mmol/L) 28 Anion Gap (5 - 16) 9 BUN (7 - 17 mg/dL) 42 H Creatinine (0.5 - 1.0 mg/dL) 1.0 Estimated GFR (>60 ml/min) 58 L BUN/Creatinine Ratio (7 - 25 %) 42.0 H Glucose (65 - 99 mg/dL) 133 H Cancelled Magnesium (1.6 - 2.3 mg/dL) 2.1
[2017-09-21] MEDS ORDERED: SPIRIVA18 MCG INH (16:07)
== END 2017-09-21 16:55 | DRG 194 ==
LOC: ERH 17:43 → 1NO 20:54 → ERHI 20:54 → 1NO 20:54 → EDBEDREQTM 21:30 → EDBEDREQ 21:30 → ENRESERV 23:25 → 1NO 09-17 00:15 → ENTRNSPT 09-21 16:14 → CMPTRNSPT 09-21 16:53 → 1NO 09-21 16:55
PROVIDERS: Internal Medicine; Internal Medicine Interventional Cardiology; Physician Assistant; Student in an Organized Health Care Education/Training Program
DX: J18.9 Pneumonia, unspecified organism (principal); Z94.0 Kidney transplant status; J96.11 Chronic respiratory failure with hypoxia; Z96.41 Presence of insulin pump (external) (internal); J44.9 Chronic obstructive pulmonary disease, unspecified; Z99.81 Dependence on supplemental oxygen; K21.9 Gastro-esophageal reflux disease without esophagitis; K31.84 Gastroparesis; R19.7 Diarrhea, unspecified; Z86.73 Personal history of transient ischemic attack (TIA), and cerebral infarction without residual deficits; E11.40 Type 2 diabetes mellitus with diabetic neuropathy, unspecified; E11.43 Type 2 diabetes mellitus with diabetic autonomic (poly)neuropathy; I16.0 Hypertensive urgency; G40.909 Epilepsy, unspecified, not intractable, without status epilepticus; Z66 Do not resuscitate; E11.319 Type 2 diabetes mellitus with unspecified diabetic retinopathy without macular edema; G89.29 Other chronic pain; Z79.891 Long term (current) use of opiate analgesic
CPT/HCPCS: 1NP; 75657; 87493; ERO; 36415; 36592; 71046; 73620-RT; 80307; 81001; 82436; 87015; 87040; 87045; 87070; 87071; 87449; 87450; 87899; 87899-59; 93005; 93010; 93306; G0480; J0713; J1644; J1815; J7507; J7512; J7517